=== PATIENT | female | born 1960 | race Caucasian/White ===

== ENCOUNTER 2020-11-04 09:21 | Outpatient (REF) | payer MEDICARE, MEDICAID, SELFPAY ==
[2020-11-04 13:35] LABS: MANUAL DIFF FLAG NO
[2020-11-04 13:39] LABS: Basophils Percent Auto 0.5 % (0-2); Eosinophils Absolute Auto 0.1 X10*3/uL (0.0-0.4); Eosinophils Percent Auto 1.8 % (0-4); Hematocrit 35.8 % (37-47); Hemoglobin 11.8 g/dl (12.0-16.0); Imm Gran Abs Auto 0.03 X10*3/uL (0.00-0.03); Imm Gran Pct Auto 0.5 % (0.0-0.4); Lymphocytes Absolute Auto 1.8 X10*3/uL (1.2-4.9); Lymphocytes Percent Auto 30.4 % (20-40); Mean Corpuscular Hemoglobin 29.2 pg (27.0-33.0); Mean Corpuscular Volume 88.6 fL (80-98); Monocytes Absolute Auto 0.5 X10*3/uL (0.1-1.2); Monocytes Percent Auto 8.5 % (2-11); Neutrophils Absolute Auto 3.5 X10*3/uL (2.0-8.3); Neutrophils Percent Auto 58.3 % (45-73); Platelet Count 173 X10*3/uL (160-400); Red Blood Count 4.04 X10*6/uL (4.20-5.50); Red Cell Distribution Width 13.9 % (11.0-16.0)
[2020-11-04 14:05] LABS: Alanine Aminotransferase 15 U/L (0-31); Albumin Level 4.2 g/dL (3.5-5.0); Alkaline Phosphatase 101 U/L (39-117); Anion Gap 18 (12-20); Aspartate Amino Transferase 27 U/L (5-31); Bilirubin Total 0.4 mg/dL (0.0-1.0); Blood Urea Nitrogen 16 mg/dL (9-16); Calcium 9.6 mg/dL (8.4-10.2); Carbon Dioxide 22 mmol/L (22-29); Chloride 105 mmol/L (96-108); Cholesterol 209 mg/dL; Estimated Glomerular Filt Rate 57; Glucose Fasting 88 mg/dL (60-99); HDL Cholesterol 48 mg/dL; LDL Cholesterol Calculated 140 mg/dl; Potassium 4.8 mmol/L (3.3-5.1); Sodium 140 mmol/L (135-145); Total Protein 7.7 g/dL (6.5-8.0); Triglycerides 109 mg/dL
== END 2020-11-04 09:22 | disposition home or self-care (01) ==
LOC: HO.LAB 09:21
PROVIDERS: Absent Provider Internal Medicine Medical Oncology; PCP Internal Medicine Medical Oncology; Visit Provider Internal Medicine Gastroenterology
DX: C18.9 Malignant neoplasm of colon, unspecified (principal); E78.5 Hyperlipidemia, unspecified; K59.04 Chronic idiopathic constipation; Z85.038 Personal history of other malignant neoplasm of large intestine
CPT/HCPCS: 36415; 80053; 80061; 85025; Q3014

== ENCOUNTER 2020-12-04 11:48 | Outpatient (REF) | payer MEDICARE, MEDICAID, SELFPAY ==
--- NOTE | ~2020-12-04 | XR_ITS ---
EXAMINATION: LUMBAR SPINE. SACRUM/COCCYX. CLINICAL INFORMATION: Low back pain. Radiculopathy. COMPARISON: None TECHNIQUE: Sacrum/coccyx 2 views. Lumbar spine 2-3 views. FINDINGS: SACRUM/COCCYX: There is no visible fracture or bony abnormality involving the sacrum. The presacral soft tissues are normal. The SI joints are normal and symmetrical. LUMBAR SPINE: There is maintained lumbar lordosis. There is loss of L5-S1 disc height. Rest the disc heights are normal. No visible acute fracture, dislocation or subluxation seen. The paravertebral soft tissues are normal. XR/XR lumbar spine 2-3V IMPRESSION: Degenerative disc changes L5-S1 disc level. No visible acute fracture or dislocation. Unremarkable sacrum and coccyx.
--- NOTE | ~2020-12-04 | XR_ITS ---
EXAMINATION: LUMBAR SPINE. SACRUM/COCCYX. CLINICAL INFORMATION: Low back pain. Radiculopathy. COMPARISON: None TECHNIQUE: Sacrum/coccyx 2 views. Lumbar spine 2-3 views. FINDINGS: SACRUM/COCCYX: There is no visible fracture or bony abnormality involving the sacrum. The presacral soft tissues are normal. The SI joints are normal and symmetrical. LUMBAR SPINE: There is maintained lumbar lordosis. There is loss of L5-S1 disc height. Rest the disc heights are normal. No visible acute fracture, dislocation or subluxation seen. The paravertebral soft tissues are normal. XR/XR sacrum coccyx min 2V IMPRESSION: Degenerative disc changes L5-S1 disc level. No visible acute fracture or dislocation. Unremarkable sacrum and coccyx.
== END 2020-12-04 11:49 | disposition home or self-care (01) ==
LOC: HO.HMGCX 11:48
PROVIDERS: PCP Internal Medicine Medical Oncology; Visit Provider Internal Medicine Medical Oncology
DX: M54.5 Low back pain (principal); M54.10 Radiculopathy, site unspecified
CPT/HCPCS: 72100; 72220

== ENCOUNTER 2021-03-23 07:29 | Day surgery (SDC) | payer MEDICARE, MEDICAID, SELFPAY ==
--- NOTE | 2021-03-19 10:07 | HO.ANESPROP2 ---
Documented by User: Sendy Chowdhury NP 03/19/21 10:08 HPI - Anesthesia Eval Consult details Narrative: 60yo F for Colonoscopy PMFSH Active Problems Active Problems: All Active Problems (Updated 11/04/20 @ 09:49 by Dora Albright MD) Hx of colon cancer, stage I (Acute) Chronic idiopathic constipation (Acute) Past Medical History Medical History Chronic idiopathic constipation Hx of colon cancer, stage I Hx of major depression Tobacco dependence Family History Family History Maternal Aunt Colon cancer Father FH: colon polyps Surgical History Surgical History H/O colonoscopy H/O right hemicolectomy Social History Social History Household Members: Significant Other Alcohol intake: current Alcohol intake frequency: does not drink Patient Tobacco Use Status: Current everyday Tobacco user Cigarettes Per Day: 10 Use of substances other than those prescribed or required for medical reasons: Yes Have you been hit, kicked, punched, or otherwise hurt by someone within the past year? If so, by whom?: No Are you DNR?: No Advance Directives: No Advance Directives Information Provided: Yes Meds Allergies Allergy/AdvReac Type Severity Reaction Status Date / Time magnesium sulfate Allergy Intermediate RASH Verified 11/04/20 09:22 [From SUPREP] potassium [From SUPREP] Allergy Intermediate RASH Verified 11/04/20 09:22 sodium sulfate [From SUPREP] Allergy Intermediate RASH Verified 11/04/20 09:22 nabumetone [NABUMETONE] Allergy Unknown STOMACH Verified 11/04/20 09:22 UPSET sumatriptan [From IMITREX] Allergy Unknown NAUSEA & Verified 11/04/20 09:22 VOMITING, nausea,vomiting SuPrep Bowel Prep Kit (Na Allergy Unknown --Sulfa Uncoded 03/11/19 00:00 Sulf Exam Exam Date and Time: March 19, 2021 1007 Pertinent Lab Results Pertinent Lab Results: Laboratory Tests 11/04/20 11/04/20 13:00 13:00 WBC 6.0 Hgb 11.8 L Hct 35.8 L Plt Count 173 Sodium 140 Potassium 4.8 Chloride 105 Carbon Dioxide 22 BUN 16 Creatinine 0.99 Assessment and Plan Assessment Anesthesia Assessment: Chart Reviewed Documented by User: Katelynn Gray MD 03/23/21 10:43 PMFSH Past Medical History Medical History Chronic idiopathic constipation Hx of colon cancer, stage I Hx of major depression Tobacco dependence Family History Family History Maternal Aunt Colon cancer Father FH: colon polyps Surgical History Surgical History H/O colonoscopy H/O right hemicolectomy History of Problems with Anesthesia: No Social History Social History Household Members: Significant Other Alcohol intake: current Alcohol intake frequency: does not drink Patient Tobacco Use Status: Current everyday Tobacco user Cigarettes Per Day: 10 Use of substances other than those prescribed or required for medical reasons: Yes Have you been hit, kicked, punched, or otherwise hurt by someone within the past year? If so, by whom?: No Are you DNR?: No Advance Directives: No Advance Directives Information Provided: Yes Meds Allergies Allergy/AdvReac Type Severity Reaction Status Date / Time magnesium sulfate Allergy Intermediate RASH Verified 11/04/20 09:22 [From SUPREP] potassium [From SUPREP] Allergy Intermediate RASH Verified 11/04/20 09:22 sodium sulfate [From SUPREP] Allergy Intermediate RASH Verified 11/04/20 09:22 nabumetone [NABUMETONE] Allergy Unknown STOMACH Verified 11/04/20 09:22 UPSET sumatriptan [From IMITREX] Allergy Unknown NAUSEA & Verified 11/04/20 09:22 VOMITING, nausea,vomiting SuPrep Bowel Prep Kit (Na Allergy Unknown --Sulfa Uncoded 03/11/19 00:00 Sulf Exam Airway Mallampati Class: II TM Dist: >3cm Neck ROM: Full Loose/Missing/Broken Teeth: Yes and Lower Heart: RRR Lungs: CTA Assessment and Plan Assessment Anesthesia Assessment: Anesthesia Plan Discussed Final Anesthetic Review History of Problems with Anesthesia: No NPO: Yes ASA Class: II Final Preanesthetic Review: Meds/Allgs Chart Reviewed, Consent Obtained/Reviewed and Anes Risks/Benef Reviewed Patient Risk: Low Procedure Risk: Low Anesthetic Plan Anesthetic Plan: MAC: Disposition: Standard PACU
[2021-03-23 10:18] VITALS: BP 153/90; PULSE 59; RESP 18; TEMP 36.1; O2SAT 100
--- NOTE | 2021-03-23 10:26 | MHC.SHP ---
Pre-Procedural Eval Section A Date of Service: 03/23/21 The patient is an INPATIENT: No The History & Physical has been completed within 30 days and I have reviewed it.: No Section B Chief Complaint: Hx of stage 1 colon cancer Details of Present Illness: Colon cancer screening, history of colon cancer Relevant Family History (Specify if Yes): Yes Relevant Social History: Tobacco Use Present Medications: see Short Stay Collaborative assessment Medical History: Significant History (Chronic idiopathic constipation Hx of colon cancer, stage I Hx of major depression Tobacco dependence) History of Previous Operations: Relevant previous surgery/procedure and date(s) (status post rt hemicolectomy for stage 1 colon cancer in 2014) Allergies: Allergies Allergy/AdvReac Type Severity Reaction Status Date / Time magnesium sulfate Allergy Intermediate RASH Verified 11/04/20 09:22 [From SUPREP] potassium [From SUPREP] Allergy Intermediate RASH Verified 11/04/20 09:22 sodium sulfate [From SUPREP] Allergy Intermediate RASH Verified 11/04/20 09:22 nabumetone [NABUMETONE] Allergy Unknown STOMACH Verified 11/04/20 09:22 UPSET sumatriptan [From IMITREX] Allergy Unknown NAUSEA & Verified 11/04/20 09:22 VOMITING, nausea,vomiting SuPrep Bowel Prep Kit (Na Allergy Unknown --Sulfa Uncoded 03/11/19 00:00 Sulf Review of Systems Sugical H&P ROS: Negative: Constitution, Cardiovascular, Respiratory and Gastrointestinal Exam Surgical H&P Exam: Normal: Heart, Normal: Lungs, Normal: Extremities and Normal: Abdomen Plan Diagnosis/Plan: Unchanged I have reviewed the history and physical and performed a pertinent physical examination on my patient. No changes have occurred unless specified.
[2021-03-23 10:27] VITALS: BMI 25.8
--- NOTE | 2021-03-23 10:28 | W.PM.OPN ---
Operative Note Operative Note Date of Service: 03/23/21 Narrative: Pre-op diagnosis:?Colon cancer screening, status post right hemicolectomy for stage I cecal cancer in 2014 Post-op diagnosis:?other (Colon polyps, diverticulosis, hemorrhoids) Procedure:? COLONOSCOPY TILL CECUM WITH SNARE POLYPECTOMY Consent: Indications for the procedure and potential complications of bleeding, perforation, reaction to medications and missed diagnosis were discussed with the patient and informed consent was obtained. Instrument: Olympus PCF H 190 L variable stiffness pediatric colonoscope Monitoring: Vital signs and clinical assessment, intermittent blood pressure monitoring, continuous EKG monitoring, Pulse oximetry and Carbon Dioxide monitoring were done throughout the procedure. Colon withdrawl time was 16 minutes. Procedure: The patient was placed in the left lateral decubitis position and pre-procedure medications were administered. After a digital rectal examination of the ano-rectum, the video colonoscope was inserted into the rectum and advanced through the colon to the end to side ileo-colic anastomosis. The colonoscope was slowly withdrawn in a retrograde panoramic fashion and the colon mucosa was carefully examined including a retroflexed view of the rectum. Findings and interventions are described below. Procedure Difficulty: Without difficulty Findings: Terminal Ileum: Distal 10 cms of charly-terminal ileum was examined and appeared normal Anastomosis:? Normal Transverse Colon:? Normal Descending Colon:? Normal Sigmoid Colon:? Moderate diverticulosis Rectum:? Multiple 8 mm to 2 cms hyperplastic appearing polyps in the rectum from 0-10 cms - three larger polyps were removed with a hot snare. Ano-rectum:? Small internal hemorrhoids Colon preparation:? Good? Impression and Post Procedure Diagnosis: Colonoscopy Findings: Three medium sized polyps removed Moderate diverticulosis seen in the sigmoid colon Small hemorrhoids on retroflexed exam. Plan: Await pathology results Patient has an appointment on 04/22/21 in the GI Clinic with Phoenix Niño M.D.. Repeat Colonoscopy interval based on path results - in 3-5 years if polyps are adenomatous and due to personal hx of colon cancer. Above findings were reviewed with the patient and colon polyps and diverticulosis handouts were given in the discharge area Surgeon:?Phoenix Niño MD Anesthesia:?MAC (Laurence Salinas, GEOMAGNETIST) Was an Vice President Fixed Income used for this Procedure?:?Yes Vice President Fixed Income:?Jesi Barrett Estimated blood loss (mL):?0 Pathology:?other (A. rectal polyps) Condition:?stable Disposition:?PACU
[2021-03-23] MEDS: Lactated Ringers 1,000 ML 100 ML IVCONT (10:39)
[2021-03-23 11:44] VITALS: BP 115/68; PULSE 61; RESP 16; TEMP 36.3; O2SAT 100
[2021-03-23 11:59] VITALS: BP 140/77; PULSE 50; RESP 16; O2SAT 100
== END 2021-03-23 12:20 | disposition home or self-care (01) ==
PROVIDERS: PCP Internal Medicine Medical Oncology; Visit Provider Internal Medicine Gastroenterology
PROC: 0DJD8ZZ Inspection of Lower Intestinal Tract, Via Natural or Artificial Opening Endoscopic (ICD-10-PCS; CPT 45378; principal; 2021-03-23 10:40)
DX: Z12.11 Encounter for screening for malignant neoplasm of colon (principal); K62.1 Rectal polyp; K57.30 Diverticulosis of large intestine without perforation or abscess without bleeding; K64.8 Other hemorrhoids; Z85.038 Personal history of other malignant neoplasm of large intestine; Z98.0 Intestinal bypass and anastomosis status
CPT/HCPCS: 45385; 88305

== ENCOUNTER → 2021-04-22 11:00 | Outpatient (BNVA) | payer MEDICARE, MEDICAID, SELFPAY | PROVIDERS: Visit Provider Internal Medicine Gastroenterology | DX: K59.04 Chronic idiopathic constipation (principal); D64.9 Anemia, unspecified; Z85.038 Personal history of other malignant neoplasm of large intestine | CPT/HCPCS: 99212 ==

== ENCOUNTER 2021-06-22 12:57 | Outpatient (REF) | payer MEDICARE, MEDICAID, SELFPAY ==
--- NOTE | ~2021-06-22 | XR_ITS ---
EXAMINATION: XR ABDOMEN KUB CLINICAL INDICATION: Chronic idiopathic constipation COMPARISON: 11/01/2017 TECHNIQUE: AP view of the abdomen. FINDINGS: Nonobstructive bowel gas pattern. Gas and stool throughout the colon with mild to moderate colonic stool burden. There is a right mid abdominal anastomosis noted. No suspicious calcifications. The lung bases are clear. XR/XR KUB IMPRESSION: Mild to moderate colonic stool burden.
[2021-06-22 13:33] LABS: MANUAL DIFF FLAG NO
[2021-06-22 13:54] LABS: Basophils Percent Auto 0.3 % (0-2); Eosinophils Absolute Auto 0.1 X10*3/uL (0.0-0.4); Eosinophils Percent Auto 1.7 % (0-4); Hematocrit 35.3 % (37.0-47.0); Hemoglobin 11.5 g/dl (12.0-16.0); Imm Gran Abs Auto 0.01 X10*3/uL (0.00-0.03); Imm Gran Pct Auto 0.2 % (0.0-0.4); Lymphocytes Absolute Auto 1.3 X10*3/uL (1.2-4.9); Lymphocytes Percent Auto 22.7 % (20-40); Mean Corpuscular HGB Conc 32.6 g/dl (31.0-35.0); Mean Corpuscular Volume 85.9 fL (80.0-98.0); Mean Platelet Volume 11.5 fL (9.4-12.3); Monocytes Absolute Auto 0.5 X10*3/uL (0.1-1.2); Monocytes Percent Auto 8.2 % (2-11); Neutrophils Absolute Auto 3.9 x10*3/uL (2.0-8.3); Neutrophils Percent Auto 66.9 % (45-73); Platelet Count 230 X10*3/uL (160-400); Red Blood Count 4.11 X10*6/uL (4.20-5.50); Red Cell Distribution Width 14.2 % (11.0-16.0); White Blood Count 5.8 X10*3/uL (4.8-10.8)
[2021-06-22 14:32] LABS: Iron 27 mcg/dL (30-160); Percent Iron Saturation 7 % (15-50); Total Iron Binding Capacity 415 mcg/dL (228-428); Unsaturated Iron Binding 388 ug/dL
[2021-06-22 14:54] LABS: Vitamin D 25-OH Total 30.2 ng/mL (>30)
[2021-06-22 15:02] LABS: Folate 6.5 ng/mL (> or = 4.0); Vitamin B12 460 pg/mL (200-900)
[2021-06-22 15:37] LABS: Ferritin 7 ng/mL (10-250)
[2021-06-24 13:26] LABS: Immunoglobulin A 48 mg/dL (70-320)
[2021-06-29 16:11] LABS: Transglutaminase Ab IgG <1.0 U/mL; Transglutaminase IgA <1.0 U/mL
== END 2021-06-22 12:58 | disposition home or self-care (01) ==
LOC: HO.LAB 12:57
PROVIDERS: PCP Internal Medicine Medical Oncology; Visit Provider Internal Medicine Gastroenterology
DX: D64.9 Anemia, unspecified (principal); K59.04 Chronic idiopathic constipation
CPT/HCPCS: 36415; 74018; 82306; 82607; 82728; 82746; 82784; 83516; 83540; 84443; 85025

== ENCOUNTER → 2021-07-01 10:26 | Outpatient (BNVA) | payer MEDICARE, MEDICAID, SELFPAY | PROVIDERS: PCP Internal Medicine Medical Oncology; Visit Provider Surgery Vascular Surgery | DX: I73.9 Peripheral vascular disease, unspecified (principal); I73.00 Raynaud's syndrome without gangrene | CPT/HCPCS: 99202 ==

== ENCOUNTER 2021-07-22 13:28 | Outpatient (REF) | payer MEDICARE, MEDICAID, SELFPAY ==
--- NOTE | ~2021-07-22 | US_ITS ---
EXAMINATION: ANKLE-BRACHIAL INDICES SINGLE LEVEL PULSE VOLUME RECORDING ARTERIAL DUPLEX BILATERAL LEGS CLINICAL INFORMATION: Peripheral vascular disease. History of smoking. COMPARISON: None TECHNIQUE: Ankle-brachial indices and PVR at the ankle were obtained. Duplex Doppler of the bilateral lower extremity arterial systems was performed. FINDINGS: RIGHT: Ankle-brachial index: 1.17 PVR: Normal Common femoral: PSV no 126 cm/s. Triphasic waveform. Deep femoral: PSV 89 cm/s. Triphasic waveform. Proximal superficial femoral: PSV 89 cm/s. Triphasic waveform. Mid superficial femoral: PSV 95 cm/s. Triphasic waveform. Distal superficial femoral: PSV 91 cm/s. Triphasic waveform. Popliteal: PSV 58 cm/s. Triphasic waveform. Posterior tibial: PSV 103 cm/s. Triphasic waveform. Peroneal: PSV 63 cm/s. Triphasic waveform. LEFT: Ankle-brachial index: 1.24 PVR: Normal Common femoral: PSV 155 cm/s. Triphasic waveform. Deep femoral: PSV 69 cm/s. Triphasic waveform. Proximal superficial femoral: PSV 89 cm/s. Triphasic waveform. Mid superficial femoral: PSV 99 cm/s. Triphasic waveform. Distal superficial femoral: PSV 100 cm/s. Triphasic waveform. Popliteal: PSV 62 cm/s. Triphasic waveform. Posterior tibial: PSV 80 cm/s. Triphasic waveform. Peroneal: PSV 41 cm/s. Triphasic waveform. US/US arterial duplex LE BI IMPRESSION: No evidence of hemodynamically significant peripheral arterial disease.
--- NOTE | ~2021-07-22 | US_ITS ---
EXAMINATION: ANKLE-BRACHIAL INDICES SINGLE LEVEL PULSE VOLUME RECORDING ARTERIAL DUPLEX BILATERAL LEGS CLINICAL INFORMATION: Peripheral vascular disease. History of smoking. COMPARISON: None TECHNIQUE: Ankle-brachial indices and PVR at the ankle were obtained. Duplex Doppler of the bilateral lower extremity arterial systems was performed. FINDINGS: RIGHT: Ankle-brachial index: 1.17 PVR: Normal Common femoral: PSV no 126 cm/s. Triphasic waveform. Deep femoral: PSV 89 cm/s. Triphasic waveform. Proximal superficial femoral: PSV 89 cm/s. Triphasic waveform. Mid superficial femoral: PSV 95 cm/s. Triphasic waveform. Distal superficial femoral: PSV 91 cm/s. Triphasic waveform. Popliteal: PSV 58 cm/s. Triphasic waveform. Posterior tibial: PSV 103 cm/s. Triphasic waveform. Peroneal: PSV 63 cm/s. Triphasic waveform. LEFT: Ankle-brachial index: 1.24 PVR: Normal Common femoral: PSV 155 cm/s. Triphasic waveform. Deep femoral: PSV 69 cm/s. Triphasic waveform. Proximal superficial femoral: PSV 89 cm/s. Triphasic waveform. Mid superficial femoral: PSV 99 cm/s. Triphasic waveform. Distal superficial femoral: PSV 100 cm/s. Triphasic waveform. Popliteal: PSV 62 cm/s. Triphasic waveform. Posterior tibial: PSV 80 cm/s. Triphasic waveform. Peroneal: PSV 41 cm/s. Triphasic waveform. US/US FREDDY complete IMPRESSION: No evidence of hemodynamically significant peripheral arterial disease.
== END 2021-07-22 13:29 | disposition home or self-care (01) ==
LOC: HO.US 13:28
PROVIDERS: Visit Provider Surgery Vascular Surgery
DX: I73.9 Peripheral vascular disease, unspecified (principal); Z87.891 Personal history of nicotine dependence
CPT/HCPCS: 93923; 93925

== ENCOUNTER → 2021-07-27 13:27 | Outpatient (BNVA) | payer MEDICARE, MEDICAID, SELFPAY | PROVIDERS: PCP Internal Medicine Medical Oncology; Visit Provider Surgery Vascular Surgery | DX: I73.00 Raynaud's syndrome without gangrene (principal) | CPT/HCPCS: 99212 ==

== ENCOUNTER → 2021-08-09 14:13 | Outpatient (BNVA) | payer MEDICARE, MEDICAID, SELFPAY | PROVIDERS: PCP Internal Medicine Medical Oncology; Visit Provider Internal Medicine Gastroenterology | DX: K59.04 Chronic idiopathic constipation (principal); Z85.038 Personal history of other malignant neoplasm of large intestine | CPT/HCPCS: 99212 ==

== ENCOUNTER 2021-09-13 08:55 | Day surgery (SDC) | payer MEDICARE, MEDICAID, SELFPAY ==
--- NOTE | 2021-09-10 09:10 | P.CONAN_ITS ---
Documented by User: Sendy Chowhdury NP 09/10/21 09:10 HPI - Anesthesia Eval Consult details Narrative: 61yo F for Upper Endoscopy s/p [facility] 03/2021 with [facility] PMFSH Active Problems Active Problems: All Active Problems (Updated 09/03/21 @ 14:42 by Evelyn Lowe, LISBETH) Anemia (Acute) PAD (peripheral artery disease) (Acute) Raynauds disease (Acute) Hx of colon cancer, stage I (Acute) Chronic idiopathic constipation (Acute) Past Medical History Medical History Chronic idiopathic constipation History of anemia Hx of colon cancer, stage I Hx of major depression Raynauds disease Tobacco dependence Family History Family History Maternal Aunt Colon cancer Father FH: colon polyps Surgical History Surgical History H/O colonoscopy H/O right hemicolectomy History of Problems with Anesthesia: No Social History Social History Household Members: Significant Other Alcohol intake: current Alcohol intake frequency: does not drink Patient Tobacco Use Status: Current everyday Tobacco user Tobacco use type: Cigarette Cigarettes Per Day: 10 Use of substances other than those prescribed or required for medical reasons: No Are you DNR?: No Advance Directives: No Advance Directives Information Provided: Yes Recently lost weight without trying: No Nutrition Risks: No Nutritional Risk Meds Allergies Allergy/AdvReac Type Severity Reaction Status Date / Time magnesium sulfate Allergy Intermediate RASH Verified 09/03/21 14:41 [From SUPREP] potassium [From SUPREP] Allergy Intermediate RASH Verified 09/03/21 14:41 sodium sulfate [From SUPREP] Allergy Intermediate RASH Verified 09/03/21 14:41 nabumetone [NABUMETONE] Allergy Unknown STOMACH Verified 09/03/21 14:41 UPSET sumatriptan [From IMITREX] Allergy Unknown NAUSEA & Verified 09/03/21 14:41 VOMITING, nausea,vomiting SuPrep Bowel Prep Kit (Na Allergy Unknown --Sulfa Uncoded 09/03/21 14:41 Sulf Home Medications Medication Instructions Recorded Confirmed Last Taken Type ferrous sulfate 325 mg (65 mg 325 mg PO DAILY 07/27/21 09/03/21 Unknown History iron) tablet (FeroSul) Exam Exam Date and Time: September 10, 2021 0910 Assessment and Plan Assessment Anesthesia Assessment: Chart Reviewed Final Anesthetic Review History of Problems with Anesthesia: No Documented by User: Katelynn Gray MD 09/13/21 10:23 PMFSH Past Medical History Medical History Chronic idiopathic constipation History of anemia Hx of colon cancer, stage I Hx of major depression Raynauds disease Tobacco dependence Family History Family History Maternal Aunt Colon cancer Father FH: colon polyps Surgical History Surgical History H/O colonoscopy H/O right hemicolectomy Social History Social History Household Members: Significant Other Alcohol intake: current Alcohol intake frequency: does not drink Patient Tobacco Use Status: Current everyday Tobacco user Tobacco use type: Cigarette Cigarettes Per Day: 10 Use of substances other than those prescribed or required for medical reasons: No Are you DNR?: No Advance Directives: No Advance Directives Information Provided: Yes Recently lost weight without trying: No Nutrition Risks: No Nutritional Risk Meds Allergies Allergy/AdvReac Type Severity Reaction Status Date / Time magnesium sulfate Allergy Intermediate RASH Verified 09/03/21 14:41 [From SUPREP] potassium [From SUPREP] Allergy Intermediate RASH Verified 09/03/21 14:41 sodium sulfate [From SUPREP] Allergy Intermediate RASH Verified 09/03/21 14:41 nabumetone [NABUMETONE] Allergy Unknown STOMACH Verified 09/03/21 14:41 UPSET sumatriptan [From IMITREX] Allergy Unknown NAUSEA & Verified 09/03/21 14:41 VOMITING, nausea,vomiting SuPrep Bowel Prep Kit (Na Allergy Unknown --Sulfa Uncoded 09/03/21 14:41 Sulf Home Medications Medication Instructions Recorded Confirmed Last Taken Type ferrous sulfate 325 mg (65 mg 325 mg PO DAILY 07/27/21 09/03/21 Unknown History iron) tablet (FeroSul) Exam Pertinent Lab Results Pertinent Lab Results: e Airway Mallampati Class: II TM Dist: >3cm Neck ROM: Full Loose/Missing/Broken Teeth: Yes, Upper and Lower Heart: RRR Lungs: CTA Assessment and Plan Assessment Anesthesia Assessment: Anesthesia Plan Discussed Final Anesthetic Review NPO: Yes ASA Class: II Final Preanesthetic Review: Meds/Allgs Chart Reviewed, Consent Obtained/Reviewed and Anes Risks/Benef Reviewed Patient Risk: Low Procedure Risk: Intermediate Anesthetic Plan Anesthetic Plan: MAC: Disposition: Standard PACU
[2021-09-13 09:11] VITALS: BMI 27.4
[2021-09-13 09:22] VITALS: BP 125/69; PULSE 70; RESP 16; TEMP 36.6; O2SAT 95
[2021-09-13] MEDS: Lactated Ringers 1,000 ML 100 ML IVCONT (09:29)
--- NOTE | 2021-09-13 10:03 | MHC.SHP ---
Pre-Procedural Eval Section A Date of Service: 09/13/21 The patient is an INPATIENT: No The History & Physical has been completed within 30 days and I have reviewed it.: No Section B Chief Complaint: anemia Details of Present Illness: Iron deficiency anemia, heme-positive stool (1/3) Relevant Family History (Specify if Yes): Yes Relevant Social History: Tobacco Use Present Medications: see Short Stay Collaborative assessment Medical History: Significant History (Chronic idiopathic constipation Hx of colon cancer, stage I Hx of major depression Tobacco dependence) History of Previous Operations: Relevant previous surgery/procedure and date(s) (H/O colonoscopy H/O right hemicolectomy) Allergies: Allergies Allergy/AdvReac Type Severity Reaction Status Date / Time magnesium sulfate Allergy Intermediate RASH Verified 09/03/21 14:41 [From SUPREP] potassium [From SUPREP] Allergy Intermediate RASH Verified 09/03/21 14:41 sodium sulfate [From SUPREP] Allergy Intermediate RASH Verified 09/03/21 14:41 nabumetone [NABUMETONE] Allergy Unknown STOMACH Verified 09/03/21 14:41 UPSET sumatriptan [From IMITREX] Allergy Unknown NAUSEA & Verified 09/03/21 14:41 VOMITING, nausea,vomiting SuPrep Bowel Prep Kit (Na Allergy Unknown --Sulfa Uncoded 09/03/21 14:41 Sulf Review of Systems Sugical H&P ROS: Negative: Constitution, Cardiovascular, Respiratory and Gastrointestinal Exam Surgical H&P Exam: Normal: Heart, Normal: Lungs, Normal: Extremities and Normal: Abdomen Plan Diagnosis/Plan: Unchanged I have reviewed the history and physical and performed a pertinent physical examination on my patient. No changes have occurred unless specified.
--- NOTE | 2021-09-13 10:05 | W.PM.OPN ---
Operative Note Operative Note Date of Service: 09/13/21 Narrative: Pre-op diagnosis: Iron def anemia, 1/3 heme positive stools Post-op diagnosis:?other (Hiatal hernia, gastritis) Procedure: FLEXIBLE TRANSORAL UPPER GASTROINTESTINAL ENDOSCOPY WITH BIOPSIES Consent:?Indications for the procedure and potential complications of bleeding, perforation, reaction to medications and missed diagnosis were discussed with the patient and informed consent was obtained. Instrument:?Olympus GIF H 190 mid size upper endoscope Monitoring: Vital signs and clinical assessment, continuous EKG monitoring, Pulse oximetry, Carbon Dioxide monitoring and blood pressure monitoring were done throughout the procedure. Procedure:?The patient was placed in the left lateral decubitis position and pre-procedure medications were administered and a bite block was placed. The endoscope was inserted into the mouth and advanced under direct vision to the third part of duodenum. A careful inspection was made as the upper endoscope was withdrawn including a retroflexed examination of the proximal stomach; Findings and interventions are described below. Findings: Esophagus: GE junction at 40 cms, small hiatal hernia 38 to 40 cms. No esophagitis or James's. Stomach: Mild gastric erythema. Biopsies were obtained. Grade 2 flap valve on retroflexed examination of the cardia. Duodenum: Normal bulb and descending duodenum - biopsies were obtained from 3rd part of the duodenum to check for celiac sprue. Intervention: Biopsies as noted above Impression and Post Procedure Diagnosis: Endoscopy Findings: ESOPHAGUS: small hiatal hernia STOMACH: Mild gastritis DUODENUM: Normal - biopsied to check for celiac sprue Plan: Await pathology results Patient has an appointment on 12/09/21 in the GI Clinic with Phoenix Niño M.D.. Above findings were reviewed with the patient and Hiatal Hernia handout was given in the discharge area Surgeon: Phoenix Niño MD Anesthesia:?MAC (Dr Gray) Was an Emissions Testing Technician used for this Procedure?:?No Emissions Testing Technician:?Jesi Barrett Estimated blood loss (mL):?0 Pathology:?other (A. small bowel bxs, R/O celiac? B. gastric antrum bxs, R/O H. pylori) Condition:?stable Disposition:?PACU
[2021-09-13 10:30] VITALS: BP 91/55; PULSE 76; RESP 20; TEMP 36.1; O2SAT 98
[2021-09-13 10:45] VITALS: BP 111/60; PULSE 63; RESP 18; TEMP 36.1; O2SAT 97
== END 2021-09-13 11:36 | disposition home or self-care (01) ==
PROVIDERS: PCP Internal Medicine Medical Oncology; Visit Provider Internal Medicine Gastroenterology
PROC: 0DJ08ZZ Inspection of Upper Intestinal Tract, Via Natural or Artificial Opening Endoscopic (ICD-10-PCS; CPT 43235; principal; 2021-09-13 10:10)
DX: D50.9 Iron deficiency anemia, unspecified (principal); R19.5 Other fecal abnormalities; K59.04 Chronic idiopathic constipation; K29.50 Unspecified chronic gastritis without bleeding; K44.9 Diaphragmatic hernia without obstruction or gangrene; R53.83 Other fatigue; R63.5 Abnormal weight gain; Z68.27 Body mass index [BMI] 27.0-27.9, adult; Z85.038 Personal history of other malignant neoplasm of large intestine; Z86.010 Personal history of colon polyps; Z79.899 Other long term (current) drug therapy; Z88.8 Allergy status to other drugs, medicaments and biological substances; F17.210 Nicotine dependence, cigarettes, uncomplicated; Z90.49 Acquired absence of other specified parts of digestive tract
CPT/HCPCS: 43239; 88305; 88342

== ENCOUNTER 2021-10-11 15:05 | Outpatient (REF) | payer MEDICARE, MEDICAID, SELFPAY ==
[2021-10-11 15:17] LABS: MANUAL DIFF FLAG NO
[2021-10-11 15:22] LABS: Basophils Percent Auto 0.3 % (0-2); Eosinophils Absolute Auto 0.1 X10*3/uL (0.0-0.4); Eosinophils Percent Auto 1.3 % (0-4); Hematocrit 43.3 % (37.0-47.0); Hemoglobin 14.7 g/dl (12.0-16.0); Imm Gran Abs Auto 0.03 X10*3/uL (0.00-0.03); Imm Gran Pct Auto 0.3 % (0.0-0.4); Lymphocytes Absolute Auto 2.2 X10*3/uL (1.2-4.9); Lymphocytes Percent Auto 24.2 % (20-40); Mean Corpuscular HGB Conc 33.9 g/dl (31.0-35.0); Mean Corpuscular Hemoglobin 30.9 pg (27.0-33.0); Mean Platelet Volume 10.7 fL (9.4-12.3); Monocytes Absolute Auto 0.7 X10*3/uL (0.1-1.2); Neutrophils Absolute Auto 6.2 x10*3/uL (2.0-8.3); Neutrophils Percent Auto 66.9 % (45-73); Platelet Count 212 X10*3/uL (160-400); Red Blood Count 4.76 X10*6/uL (4.20-5.50); Red Cell Distribution Width 14.3 % (11.0-16.0); White Blood Count 9.2 X10*3/uL (4.8-10.8)
[2021-10-11 16:23] LABS: Erythrocyte Sedimentation Rate 27 MM/HR (0-20)
[2021-10-11 16:46] LABS: Alanine Aminotransferase 19 U/L (0-31); Albumin Level 4.3 g/dL (3.5-5.0); Alkaline Phosphatase 124 U/L (39-117); Anion Gap 15 (12-20); Aspartate Amino Transferase 17 U/L (5-31); Bilirubin Total 0.3 mg/dL (0.0-1.0); Blood Urea Nitrogen 11 mg/dL (9-16); Calcium 9.8 mg/dL (8.4-10.2); Carbon Dioxide 25 mmol/L (22-29); Chloride 106 mmol/L (96-108); Estimated Glomerular Filt Rate > 60; Glucose Random 82 mg/dL (60-115); Potassium 4.6 mmol/L (3.3-5.1); Rheumatoid Factor < 15.0 IU/mL (<15.0); Sodium 141 mmol/L (135-145); Total Protein 7.5 g/dL (6.5-8.0)
[2021-10-11 16:59] LABS: Ferritin 35 ng/mL (10-250); Free T4 (Free Thyroxine) 0.96 ng/dL (0.71-1.85); Thyroid Stimulating Hormone 2.27 uIU/mL (0.32-4.0)
[2021-10-13 23:02] LABS: Anti Nuclear Antibody Pattern Nuclear, Nucleolar; Anti Nuclear Antibody Screen POSITIVE (NEGATIVE); Anti Nuclear Antibody Titer 1:40 titer
== END 2021-10-11 15:06 | disposition home or self-care (01) ==
LOC: HO.LAB 15:05
PROVIDERS: Visit Provider Internal Medicine Medical Oncology
DX: C18.9 Malignant neoplasm of colon, unspecified (principal); E78.5 Hyperlipidemia, unspecified
CPT/HCPCS: 36415; 80053; 82728; 84439; 84443; 85025; 85652; 86038; 86039; 86431

== ENCOUNTER 2022-07-20 10:24 | Outpatient (REF) | payer MEDICARE, MEDICAID, SELFPAY ==
[2022-07-20 10:39] LABS: MANUAL DIFF FLAG NO
[2022-07-20 10:45] LABS: Basophils Percent Auto 0.5 % (0-2); Eosinophils Absolute Auto 0.2 X10*3/uL (0.0-0.4); Eosinophils Percent Auto 2.2 % (0-4); Hematocrit 41.2 % (37.0-47.0); Hemoglobin 14.2 g/dl (12.0-16.0); Imm Gran Abs Auto 0.03 X10*3/uL (0.00-0.03); Imm Gran Pct Auto 0.4 % (0.0-0.4); Lymphocytes Absolute Auto 2.1 X10*3/uL (1.2-4.9); Lymphocytes Percent Auto 25.8 % (20-40); Mean Corpuscular HGB Conc 34.5 g/dl (31.0-35.0); Mean Corpuscular Hemoglobin 32.1 pg (27.0-33.0); Mean Platelet Volume 10.5 fL (9.4-12.3); Monocytes Absolute Auto 0.7 X10*3/uL (0.1-1.2); Monocytes Percent Auto 8.1 % (2-11); Neutrophils Absolute Auto 5.2 x10*3/uL (2.0-8.3); Platelet Count 222 X10*3/uL (160-400); Red Blood Count 4.43 X10*6/uL (4.20-5.50); Red Cell Distribution Width 12.5 % (11.0-16.0); White Blood Count 8.3 X10*3/uL (4.8-10.8)
[2022-07-20 11:42] LABS: Alanine Aminotransferase 30 U/L (0-31); Albumin Level 4.1 g/dL (3.5-5.0); Alkaline Phosphatase 129 U/L (39-117); Anion Gap 8 (12-20); Aspartate Amino Transferase 25 U/L (5-31); Bilirubin Total 0.5 mg/dL (0.0-1.0); Blood Urea Nitrogen 14 mg/dL (9-16); Calcium 9.7 mg/dL (8.4-10.2); Carbon Dioxide 26 mmol/L (22-29); Chloride 109 mmol/L (96-108); Cholesterol 258 mg/dL; Estimated Glomerular Filt Rate 48; Glucose Fasting 98 mg/dL (60-99); HDL Cholesterol 47 mg/dL; LDL Cholesterol Calculated 180 mg/dl; Potassium 5.4 mmol/L (3.3-5.1); Sodium 138 mmol/L (135-145); Total Protein 7.2 g/dL (6.5-8.0); Triglycerides 158 mg/dL
[2022-07-20 12:02] LABS: Ferritin 19 ng/mL (10-250)
== END 2022-07-20 10:25 | disposition home or self-care (01) ==
LOC: HO.LAB 10:24
PROVIDERS: PCP Internal Medicine Medical Oncology; Visit Provider Internal Medicine Medical Oncology
DX: C18.9 Malignant neoplasm of colon, unspecified (principal); E78.5 Hyperlipidemia, unspecified
CPT/HCPCS: 36415; 80053; 80061; 82728; 85025

== ENCOUNTER 2022-08-15 14:59 | Outpatient (REF) | payer MEDICARE, MEDICAID, SELFPAY ==
[2022-08-18 00:39] LABS: HPV mRNA E6/E7 rflx Not Detected (Not Detected)
== END 2022-08-15 15:00 | disposition home or self-care (01) ==
LOC: HO.LNP 14:59
PROVIDERS: Visit Provider Internal Medicine Medical Oncology
DX: Z12.4 Encounter for screening for malignant neoplasm of cervix (principal); Z11.51 Encounter for screening for human papillomavirus (HPV)
CPT/HCPCS: 87624; 88142

== ENCOUNTER 2022-09-20 13:42 | Outpatient (REF) | payer MEDICARE, MEDICAID, SELFPAY ==
[2022-09-20 15:31] LABS: Erythrocyte Sedimentation Rate 57 MM/HR (0-20)
[2022-09-22 13:28] LABS: Lyme Abs Screen <0.90 index
[2022-09-22 15:58] LABS: Anti Nuclear Antibody Screen NEGATIVE (NEGATIVE)
[2022-09-23 20:44] LABS: IgA 48 mg/dL (70-320); IgG 791 mg/dL (600-1540); IgM 1414 mg/dL (50-300)
== END 2022-09-20 13:43 | disposition home or self-care (01) ==
LOC: HO.LAB 13:42
PROVIDERS: PCP Internal Medicine Medical Oncology; Visit Provider Psychiatry & Neurology Neurology
DX: G62.9 Polyneuropathy, unspecified (principal)
CPT/HCPCS: 36415; 82784; 85652; 86038; 86039; 86334; 86617; 86618

== ENCOUNTER 2022-11-24 12:53 | Emergency (ER) | payer MEDICARE, MEDICAID, SELFPAY ==
--- NOTE | ~2022-11-24 | XR_ITS ---
EXAMINATION: RIGHT FOOT AND ANKLE CLINICAL INFORMATION: Fall with pain COMPARISON: None. TECHNIQUE: 3 views of the right foot and 2 views of the right ankle FINDINGS: Views of the right ankle demonstrate a nondisplaced fracture involving the distal fibula with large amount of associated soft tissue swelling. No ankle mortise disruption is appreciated. There is slight irregularity about the tip of the medial malleolus which could possibly represent a nondisplaced avulsion injury. I do not see significant soft tissue swelling without dislocation and this may either be related to artifact or previous injury. Views of the right foot do not demonstrate any evidence of acute fracture or dislocation. Joint spaces are maintained. There is some spurring seen along the medial aspect base of the fourth proximal phalanx which may be secondary to previous volar plate fracture. XR/XR ankle RT 2V IMPRESSION: Nondisplaced distal fibular fracture. Question new or chronic nondisplaced avulsion injury of the tip of the medial malleolus.
--- NOTE | ~2022-11-24 | XR_ITS ---
EXAMINATION: RIGHT FOOT AND ANKLE CLINICAL INFORMATION: Fall with pain COMPARISON: None. TECHNIQUE: 3 views of the right foot and 2 views of the right ankle FINDINGS: Views of the right ankle demonstrate a nondisplaced fracture involving the distal fibula with large amount of associated soft tissue swelling. No ankle mortise disruption is appreciated. There is slight irregularity about the tip of the medial malleolus which could possibly represent a nondisplaced avulsion injury. I do not see significant soft tissue swelling without dislocation and this may either be related to artifact or previous injury. Views of the right foot do not demonstrate any evidence of acute fracture or dislocation. Joint spaces are maintained. There is some spurring seen along the medial aspect base of the fourth proximal phalanx which may be secondary to previous volar plate fracture. XR/XR foot RT 2V IMPRESSION: Nondisplaced distal fibular fracture. Question new or chronic nondisplaced avulsion injury of the tip of the medial malleolus.
[2022-11-24 12:59] VITALS: BP 130/82; PULSE 79; RESP 18; TEMP 36.6; O2SAT 98; BMI 26.8
[2022-11-24 13:05] VITALS: BP 130/74; PULSE 70; O2SAT 98
--- NOTE | 2022-11-24 13:15 | ED_ITS ---
HPI - Extremity Injury (Lower) General Chief Complaint: Extremity Injury, Lower Stated Complaint: trip and fall, ankle pain Time Seen by Provider: 11/24/22 13:07 Source: patient and EMS Mode of arrival: EMS Limitations: no limitations History of Present Illness HPI Narrative: 62 yo female here with right ankle pain/foot pain after missing a step with inversion injury of right ankle. Has neuropathy at baseline. Related Data Home Medications Medication Instructions Recorded Confirmed ferrous sulfate 325 mg (65 mg 325 mg PO DAILY 07/27/21 09/03/21 iron) tablet (FeroSul) Previous Rx's Medication Instructions Recorded sennosides 8.6 mg capsule (senna) 8.6 mg PO DAILY PRN constipation 04/22/21 30 days #30 caps linaclotide 145 mcg capsule 145 mcg PO QAM 30 days #30 caps 11/11/21 (Linzess) Allergies Allergy/AdvReac Type Severity Reaction Status Date / Time magnesium sulfate Allergy Intermediate RASH Verified 09/03/21 14:41 [From SUPREP] potassium [From SUPREP] Allergy Intermediate RASH Verified 09/03/21 14:41 sodium sulfate [From SUPREP] Allergy Intermediate RASH Verified 09/03/21 14:41 nabumetone [NABUMETONE] Allergy Unknown STOMACH Verified 09/03/21 14:41 UPSET sumatriptan [From IMITREX] Allergy Unknown NAUSEA & Verified 09/03/21 14:41 VOMITING, nausea,vomiting SuPrep Bowel Prep Kit (Na Allergy Unknown --Sulfa Uncoded 09/03/21 14:41 Sulf Review of Systems Review of Systems: Yes all other systems are reviewed and are negative Constitutional: Constitutional: Reports no additional constitutional complaints, Denies body ache(s), Denies chills, Denies fever(s), Denies headache(s) and Denies weakness Eyes: Eyes: Reports no additional eye complaints and Denies change in vision ENT: Reports system reviewed and no additional complaints, except as documented, Denies dizziness, Denies headache(s), Denies nasal congestion, Denies nasal discharge and Denies neck pain Cardiovascular: Cardiovascular: Reports no additional cardiovascular complain ts, Denies chest pain, Denies leg edema and Denies dyspnea Respiratory: Respiratory: Reports no additional respiratory complaints, Denies cough and Denies dyspnea Gastrointestinal: Gastrointestinal: Reports no additional gastrointestinal complaints, Denies abdominal pain, Denies diarrhea, Denies nausea and Denies vomiting Genitourinary: Genitourinary: Reports no additional female genitourinary complaints and Denies urinary incontinence Musculoskeletal: Musculoskeletal: Reports no additional musculoskeletal complaints, Denies back pain, Reports arthralgias, Reports joint swelling, Denies neck pain, Denies numbness and Denies tingling Integumentary/Breasts: Skin/Breast: Reports system reviewed and no additional complaints, except as docu and Denies rash Neurologic: Reports system reviewed and no additional complaints, except as documented, Denies Abnormal speech present, Denies dizziness, Denies headache(s), Denies numbness, Denies tingling and Denies weakness PMFSH Past Medical History Attestation statement: The following information was validated with the patient. Source: old records reviewed and nursing notes reviewed Medical History Chronic idiopathic constipation History of anemia Hx of colon cancer, stage I Hx of major depression Raynauds disease Tobacco dependence Surgical History H/O colonoscopy H/O right hemicolectomy History of esophagogastroduodenoscopy (EGD) Family History Family History Maternal Aunt Colon cancer Father FH: colon polyps Social History Social History Household Members: Significant Other Alcohol intake: current Alcohol intake frequency: does not drink Patient Tobacco Use Status: Current everyday Tobacco user Tobacco use type: Cigarette Cigarettes Per Day: 10 Advance Directives: No Physical Exam Vital Signs: Vital Signs: Last Vital Signs Temp 97.8 F 11/24/22 12:59 Pulse 79 11/24/22 12:59 Resp 18 11/24/22 12:59 BP 130/82 11/24/22 12:59 Pulse Ox 98 11/24/22 12:59 O2 Del Method Room Air 11/24/22 12:59 BMI result Body Mass Index 26.8 Const: General: cooperative, healthy appearing, comfortable and no acute distress Orientation/consciousness: patient oriented x3 Limitations: no limitations HEENT: Head: Yes normal to inspection Ears: hearing grossly normal bilaterally General nose exam: Normal external nose present Face and sinus: Yes normal facial exam Mouth: Normal oral and palatal mucosa present Throat: Yes posterior oropharynx normal Eyes: General: appearance normal, both eyes and all related structures Pupils: Equal, round and reactive pupils present Neck: Neck: Yes normal visual inspection Chest: Chest palpation & inspection: normal inspection of the chest Resp: Effort & Inspection: normal respiratory effort Auscultation: clear to auscultation bilaterally Cardio: Rate: regular rate Rhythm: regular rhythm Peripheral pulses: Peripheral pulses 2+ throughout GI: Inspection: Yes normal to inspection Palpation (GI): Soft to palpation and nontender Auscultation: normal bowel sounds Back/Spine/Pelvis: Thoracic/Lumbar Spine: thoracic and lumbar spine normal to inspection Skin: General skin exam: no rashes or lesions noted Neuro: General: patient oriented x3, no focal motor deficits and normal sensation to monofilament Cranial nerves: Yes Equal, round and reactive pupils present Cognition (Neuro): normal cognition Speech: No Abnormal speech present Gait exam (Neuro): Normal gait present Motor exam (neuro): 5/5 motor strength present throughout Extrem: Other: Swelling, ecchymosis and tenderness to the right lateral ankle. No tenderness over the medial aspect. No tenderness over the foot. Full range of motion. No ligamental laxity. Normal DP and PT pulses. Sensation loss at baseline. General: Yes normal to inspection Course Course Course Narrative: X-rays of the right ankle show nondisplaced distal fibular fracture and a possible avulsion fracture of the medial malleolus. Patient was placed in a posterior splint and given crutches for ambulation. We reviewed rice. Recommend orthopedic follow-up. Reviewed worrisome signs and symptoms of when to return to the emergency room. Comfortable plan for discharge home. Medications Administered Discontinued Medications Generic Name Dose Route Start Last Admin Trade Name Freq PRN Reason Stop Dose Admin Acetaminophen 975 mg 11/24/22 14:51 11/24/22 15:01 Acetaminophen 325 Mg Tablet PO 11/24/22 14:52 975 mg ONCE ONE Administration Medical Decision Making Medical Decision Making [facility] Narrative: 62-year-old female here with right ankle pain after an injury which occurred just prior to arrival from a mechanical fall. Will check x-rays Differential Diagnosis Differential Diagnoses: The differential diagnosis associated with the presentation includes Fracture, sprain, dislocation less likely vascular injury Independent Interpretation I performed an independent interpretation of an: Plain X-Ray Interpretation: I independently reviewed the x-rays and agree with radiologist's report Radiology Impression Discussion of test interpretation with radiology: I have reviewed the radiologist's reading. Radiologist Impression: [address] [id number] XRay Report Signed Patient: Sidra Quintanilla MR#: [id number] : 1960 Acct:[id number] Age/Sex: 62 / F ADM Date: 11/24/22 Loc: HO.ED Attending Dr: Ordering Physician: Antonia Salazar NP Date of Service: 11/24/22 Procedure(s): XR foot RT 2V Accession Number(s): [id number] cc: Antonia Salazar NP~ EXAMINATION: RIGHT FOOT AND ANKLE CLINICAL INFORMATION: Fall with pain COMPARISON: None. TECHNIQUE: 3 views of the right foot and 2 views of the right ankle FINDINGS: Views of the right ankle demonstrate a nondisplaced fracture involving the distal fibula with large amount of associated soft tissue swelling. No ankle mortise disruption is appreciated. There is slight irregularity about the tip of the medial malleolus which could possibly represent a nondisplaced avulsion injury. I do not see significant soft tissue swelling without dislocation and this may either be related to artifact or previous injury. Views of the right foot do not demonstrate any evidence of acute fracture or dislocation. Joint spaces are maintained. There is some spurring seen along the medial aspect base of the fourth proximal phalanx which may be secondary to previous volar plate fracture. XR/XR foot RT 2V IMPRESSION: Nondisplaced distal fibular fracture. ? Question new or chronic nondisplaced avulsion injury of the tip of the medial malleolus. Procedures Orthopedic Splinting/Casting Injury #1: Side: right Lower Extremity Injury Location: lower leg Lower Extremity Immobilizer: posterior splint Other Orthopedic Equipment: crutches Discharge Plan Discharge Clinical Impression: Ankle fracture Patient Disposition: Home, Self-Care Instructions: Ankle Fracture (DC), Splint Care (ED) Additional Instructions: Elevate, keep the splint on all times do not get it wet Use the crutches for the next few days Follow-up with Orthopedics to make sure healing okay Take Tylenol for pain Prescriptions: No Action Linzess 145 mcg capsule 145 mcg PO QAM 30 Days Qty: 30 3RF senna 8.6 mg capsule 8.6 mg PO DAILY PRN (Reason: constipation) 30 Days Qty: 30 3RF ferrous sulfate [FeroSul] 325 mg (65 mg iron) tablet 325 mg PO DAILY Referrals: [facility] [place] Orthopedic Surgeons [Provider Group] - 10 days
[2022-11-24] MEDS: Acetaminophen 325 MG TABLET 975 MG PO (15:01)
--- NOTE | 2022-11-24 16:10 | MHC.EDTECH ---
Posterior short leg splint applied to right foot per provider. CSM intact with good capillary refill. RN and Provider aware.
== END 2022-11-24 16:17 | disposition home or self-care (01) ==
PROVIDERS: Emergency Provider Student in an Organized Health Care Education/Training Program; PCP Internal Medicine Medical Oncology
DX: S82.891A Other fracture of right lower leg, initial encounter for closed fracture (principal); M25.571 Pain in right ankle and joints of right foot; X50.1XXA Overexertion from prolonged static or awkward postures, initial encounter; Y93.9 Activity, unspecified; Y92.9 Unspecified place or not applicable; Y99.9 Unspecified external cause status; Z79.899 Other long term (current) drug therapy
CPT/HCPCS: 29515; 73600; 73620; 99284

== ENCOUNTER → 2022-12-01 11:27 | Outpatient (BNVA) | payer MEDICARE, MEDICAID, SELFPAY | PROVIDERS: PCP Internal Medicine Medical Oncology; Visit Provider Physician Assistant | DX: S82.831A Other fracture of upper and lower end of right fibula, initial encounter for closed fracture (principal); S82.891A Other fracture of right lower leg, initial encounter for closed fracture | CPT/HCPCS: 27786; 29405; 99202 ==

== ENCOUNTER 2022-12-29 07:21 | Outpatient (REF) | payer MEDICARE, MEDICAID, SELFPAY ==
--- NOTE | ~2022-12-29 | XR_ITS ---
EXAMINATION: XR ANKLE, RIGHT CLINICAL INFORMATION: Ankle pain. COMPARISON: November 24, 2022. TECHNIQUE: AP, lateral, and mortise views of the right ankle. XR/XR ankle RT min 3V FINDINGS/IMPRESSION: Decreased bone mineral density limits evaluation for subtle fracture. Examination again demonstrates a minimally displaced fractures of the lateral malleolus and possibly the tip of the medial malleolus, although the latter is equivocal. No definite callus formation is appreciated. Associated soft tissue swelling appears present. No other fracture or dislocation is appreciated. No lytic or sclerotic bony lesion is seen.
== END 2022-12-29 07:22 | disposition home or self-care (01) ==
LOC: HO.HOSX 07:21
PROVIDERS: Visit Provider Physician Assistant
DX: S82.831D Other fracture of upper and lower end of right fibula, subsequent encounter for closed fracture with routine healing (principal); S82.891D Other fracture of right lower leg, subsequent encounter for closed fracture with routine healing; M25.571 Pain in right ankle and joints of right foot; X58.XXXD Exposure to other specified factors, subsequent encounter
CPT/HCPCS: 73610; 99212

== ENCOUNTER 2023-01-09 14:14 | Outpatient (REF) | payer MEDICARE, MEDICAID, SELFPAY ==
[2023-01-09 14:53] LABS: MANUAL DIFF FLAG NO
[2023-01-09 15:38] LABS: Basophils Absolute Auto 0.1 X10*3/uL (0.0-0.2); Basophils Percent Auto 0.7 % (0-2); Eosinophils Absolute Auto 0.1 X10*3/uL (0.0-0.4); Eosinophils Percent Auto 1.1 % (0-4); Hematocrit 40.1 % (37.0-47.0); Hemoglobin 14.3 g/dl (12.0-16.0); Imm Gran Abs Auto 0.02 X10*3/uL (0.00-0.03); Imm Gran Pct Auto 0.3 % (0.0-0.4); Lymphocytes Absolute Auto 1.7 X10*3/uL (1.2-4.9); Lymphocytes Percent Auto 23.6 % (20-40); Mean Corpuscular HGB Conc 35.7 g/dl (31.0-35.0); Mean Corpuscular Hemoglobin 32.5 pg (27.0-33.0); Mean Corpuscular Volume 91.1 fL (80.0-98.0); Mean Platelet Volume 11.9 fL (9.4-12.3); Monocytes Absolute Auto 0.5 X10*3/uL (0.1-1.2); Monocytes Percent Auto 6.7 % (2-11); Neutrophils Absolute Auto 4.9 x10*3/uL (2.0-8.3); Neutrophils Percent Auto 67.6 % (45-73); Platelet Count 196 X10*3/uL (160-400); Red Cell Distribution Width 12.1 % (11.0-16.0); White Blood Count 7.3 X10*3/uL (4.8-10.8)
[2023-01-09 15:47] LABS: Estimated Average Glucose 82 mg/dL; Hemoglobin A1c % 4.5 %
[2023-01-09 16:12] LABS: Anion Gap 14 (12-20); Blood Urea Nitrogen 14 mg/dL (9-16); C Reactive Protein 0.12 mg/dL (< or = 0.50); Calcium 10.1 mg/dL (8.4-10.2); Carbon Dioxide 21 mmol/L (22-29); Chloride 109 mmol/L (96-108); Estimated Glomerular Filt Rate > 60; Glucose Random 90 mg/dL (60-115); Sodium 140 mmol/L (135-145)
[2023-01-09 16:28] LABS: Erythrocyte Sedimentation Rate 49 MM/HR (0-20)
== END 2023-01-09 14:15 | disposition home or self-care (01) ==
LOC: HO.LAB 14:14
PROVIDERS: Visit Provider Psychiatry & Neurology Neurology
DX: G62.9 Polyneuropathy, unspecified (principal); E11.9 Type 2 diabetes mellitus without complications
CPT/HCPCS: 36415; 80048; 83036; 85025; 85652; 86140

== ENCOUNTER 2023-02-09 11:14 | Outpatient (REF) | payer MEDICARE, MEDICAID, SELFPAY ==
--- NOTE | ~2023-02-09 | XR_ITS ---
EXAMINATION: XR ANKLE, RIGHT CLINICAL INFORMATION: Right ankle pain. COMPARISON: 12/29/2022 and 11/24/2022 TECHNIQUE: AP, lateral, and mortise views of the right ankle. FINDINGS: There is again noted to be a healing fracture about the distal right fibula with increased periosteal new bone formation and marginal sclerosis with continued mild distraction of the lateral aspect of the fracture. There may be some degree of bony union about the medial aspect of the fracture. Ankle mortise appears intact. Question healing avulsion injury tip of the medial malleolus. There appears be some degree of osteopenia present about the distal tibia and fibula. XR/XR ankle RT min 3V IMPRESSION: No significant change in alignment of healing right ankle fractures.
[2023-02-14 01:13] LABS: Arsenic, 24H Urine <10 mcg/L (<=80); Cadmium, 24H Urine <0.5 mcg/L (<=5.0); Lead, 24H Urine <10 mcg/L (<80); Mercury, 24H Urine <4 mcg/L (<=20)
== END 2023-02-09 11:15 | disposition home or self-care (01) ==
LOC: HO.HOSX 11:14
PROVIDERS: Psychiatry & Neurology Neurology; Visit Provider Physician Assistant
DX: G62.9 Polyneuropathy, unspecified (principal); S82.831D Other fracture of upper and lower end of right fibula, subsequent encounter for closed fracture with routine healing; S82.891D Other fracture of right lower leg, subsequent encounter for closed fracture with routine healing
CPT/HCPCS: 73610; 82175; 82300; 83655; 83825

== ENCOUNTER 2023-02-09 13:15 | Outpatient (AMB) | payer MEDICARE, MEDICAID, SELFPAY ==
--- NOTE | 2023-02-09 13:49 | A.OFFVIS_ITS ---
Intake Vital Signs 02/09/23 13:53 Height 5 ft 6 in Weight 166 lb BMI 26.8 Intake Visit Reasons: OV- f/u right ankle fx w xrays Intake Note: Sidra is a 62 year old female who presents today for a follow up for her right ankle fx, DOI 11/25/22. Xrays updated. Patient is concerned of redness on her foot. She is tender to the touch at the medial and lateral aspect of ankle. She continues to wear boot as instructed. Allergies magnesium sulfate [From SUPREP] Allergy (Intermediate, Verified 02/09/23 13:54) RASH potassium [From SUPREP] Allergy (Intermediate, Verified 02/09/23 13:54) RASH sodium sulfate [From SUPREP] Allergy (Intermediate, Verified 02/09/23 13:54) RASH nabumetone [NABUMETONE] Allergy (Unknown, Verified 02/09/23 13:54) STOMACH UPSET sumatriptan [From IMITREX] Allergy (Unknown, Verified 02/09/23 13:54) NAUSEA & VOMITING, nausea,vomiting SuPrep Bowel Prep Kit (Na Sulf Allergy (Unknown, Uncoded 02/09/23 13:54) --Sulfa HPI OV- f/u right ankle fx w xrays HPI Details 62-year-old female who returns to the office today for a follow-up of right ankle fracture, 11/25/22. She states she has tenderness to touch at the medial and lateral aspect of her ankle. She also c/o redness on her foot. She continues to wear her boot as instructed. [facility] Medical History Chronic idiopathic constipation History of anemia Hx of colon cancer, stage I Hx of major depression Raynauds disease Tobacco dependence Surgical History H/O colonoscopy H/O right hemicolectomy History of esophagogastroduodenoscopy (EGD) Family History Maternal Aunt Colon cancer Father FH: colon polyps Social History Household Members: Significant Other Alcohol intake: current Alcohol intake frequency: does not drink Patient Tobacco Use Status: Current everyday Tobacco user Tobacco use type: Cigarette Cigarettes Per Day: 10 Current occupational status: unemployed Review of Systems Const All systems reviewed & are unremarkable except as noted in HPI and below Physical Exam Vital Signs: BMI result Body Mass Index 26.8 Extrem Other: Right ankle: Normal to inspection. She does have mild tenderness over the medial malleolus. Due to her neuropathy, she has very limited sensations throughout the rest of her foot. Pulses are present. Results Reviewed Results Reviewed: Xrays were obtained in the office today and personally reviewed by me of the right ankle show a non displaced distal fibular fracture with interval healing Assessment & Plan Assessment & Plan (1) Closed fracture of right distal fibula: Comment: Nondisplaced distal fibular fracture. Code(s): S82.831A - Other fracture of upper and lower end of right fibula, initial encounter for closed fracture (2) Avulsion fracture of right ankle: Comment: Nondisplaced avulsion injury of the tip of the medial malleolus. Code(s): S82.891A - Other fracture of right lower leg, initial encounter for closed fracture Plan She was given a lace-up ankle brace today in the office which she will transition to for ambulating. I would like her to begin a course of physical therapy to work on ROM, gentle strengthening and proprioceptive training. I would like to see her back in 6 weeks, sooner if needed. Orders: Orders XR ankle RT min 3V Today M25.571 - Pain in right ankle and joints of right foot PT Evaluation and Treatment Today S82.831A - Other fracture of upper and lower end of right fibula, initial encounter for closed fracture, S82.891A - Other fracture of right lower leg, initial encounter for closed fracture Patient Instructions: Scribed for Renata Funes PA-C, by Jhonatan Canales vice president medical affairs, on 02/09/2023 at 1:45 PM PHILLIP. Renata Gunter PA-C, have personally reviewed and agree with the information entered by the scribe. Coding Level of Care Code Global (64873) Diagnoses Closed fracture of right distal fibula S82.831A Avulsion fracture of right ankle S82.891A
[2023-02-09 13:53] VITALS: BMI 26.8
== END 2023-02-09 14:27 | disposition home or self-care (01) ==
PROVIDERS: PCP Internal Medicine Medical Oncology; Visit Provider Physician Assistant
DX: S82.831A Other fracture of upper and lower end of right fibula, initial encounter for closed fracture (principal); S82.891A Other fracture of right lower leg, initial encounter for closed fracture
CPT/HCPCS: 99024

== ENCOUNTER 2023-03-27 06:50 | Outpatient (REF) | payer MEDICARE, MEDICAID, SELFPAY | END 2023-03-27 06:51 | disposition home or self-care (01) | LOC: HO.HOSX 06:50 | PROVIDERS: Visit Provider Physician Assistant | DX: Z13.89 Encounter for screening for other disorder (principal) ==

== ENCOUNTER 2023-09-22 16:55 | Outpatient (REF) | payer MEDICARE, MEDICAID, SELFPAY ==
[2023-09-22 19:08] LABS: Erythrocyte Sedimentation Rate 38 MM/HR (0-20)
[2023-09-22 19:14] LABS: Rheumatoid Factor < 13.0 IU/mL (<15.0)
[2023-09-22 19:16] LABS: C Reactive Protein 0.65 mg/dL (< or = 0.50)
[2023-09-22 19:32] LABS: Free T4 (Free Thyroxine) 0.84 ng/dL (0.71-1.85); Thyroid Stimulating Hormone 3.58 uIU/mL (0.32-4.0)
[2023-09-25 22:03] LABS: Prot Elec - Albumin 4.2 g/dL (3.8-4.8); Prot Elec - Alpha1 0.4 g/dL (0.2-0.3); Prot Elec - Alpha2 0.7 g/dL (0.5-0.9); Prot Elec - Beta 1 0.4 g/dL (0.4-0.6); Prot Elec - Beta 2 0.4 g/dL (0.2-0.5); Prot Elec - Total Protein 7.1 g/dL (6.1-8.1)
[2023-09-29 15:19] LABS: Anti Nuclear Antibody Screen POSITIVE (NEGATIVE); Anti Nuclear Antibody Titer 1:40 titer
[2023-10-12 10:23] LABS: Cryoglobulin, Qual POSITIVE
== END 2023-09-22 16:56 | disposition home or self-care (01) ==
LOC: HO.LAB 16:55
PROVIDERS: PCP Internal Medicine Medical Oncology; Visit Provider Internal Medicine Medical Oncology
DX: F32.9 Major depressive disorder, single episode, unspecified (principal); E78.5 Hyperlipidemia, unspecified; E61.1 Iron deficiency; I73.00 Raynaud's syndrome without gangrene; E03.9 Hypothyroidism, unspecified; R63.6 Underweight
CPT/HCPCS: 36415; 82595; 84165; 84439; 84443; 85652; 86038; 86039; 86140; 86431

== ENCOUNTER 2023-10-02 14:08 | Outpatient (REF) | payer MEDICARE, MEDICAID, SELFPAY ==
--- NOTE | ~2023-10-02 | US_ITS ---
EXAMINATION: BILATERAL LOWER EXTREMITY DUPLEX CLINICAL INFORMATION: Peripheral vascular disease COMPARISON: Lower extremity arterial exam 07/22/2021 TECHNIQUE: Real-time ultrasound and Doppler techniques (integrating B-mode 2-D vascular images, Doppler spectral analysis and color flow Doppler imaging) were utilized to interrogate the lower extremities. FINDINGS: RIGHT LEG: Common femoral artery: 142 cm/s, biphasic Profunda femoris artery: 36 cm/s, biphasic Superficial femoral artery (proximal): 74 cm/s, biphasic Superficial femoral artery (mid): 75 cm/s, biphasic Superficial femoral artery (distal): 51 cm/s, biphasic Proximal popliteal artery: 39 cm/s, biphasic Posterior tibial artery: 70 cm/s, biphasic LEFT LEG: Common femoral artery: 82 cm/s, biphasic Profunda femoris artery: 55 cm/s, monophasic Superficial femoral artery (proximal): 89 cm/s, biphasic Superficial femoral artery (mid): 68 cm/s, biphasic Superficial femoral artery (distal): 72 cm/s, biphasic Popliteal artery: 61 cm/s, biphasic Posterior tibial artery: 62 cm/s, biphasic US/US arterial duplex LE IMPRESSION: Plaque in the right common femoral artery causing mild stenosis by velocity criteria.
== END 2023-10-02 14:09 | disposition home or self-care (01) ==
LOC: HO.US 14:08
PROVIDERS: PCP Internal Medicine Medical Oncology; Visit Provider Internal Medicine Medical Oncology
DX: I73.9 Peripheral vascular disease, unspecified (principal); Z87.891 Personal history of nicotine dependence
CPT/HCPCS: 93925

== ENCOUNTER 2023-12-20 16:56 | Emergency (ER) | payer MEDICARE, MEDICAID, SELFPAY ==
--- NOTE | ~2023-12-20 | US_ITS ---
EXAMINATION: US VENOUS ULTRASOUND WITH DOPPLER LOWER EXTREMITY, BILATERAL CLINICAL INFORMATION: Pain COMPARISON: None available. TECHNIQUE: Ultrasound of the deep veins is performed from the hip to the calf with compression sonography and color and pulse Doppler assessment. Spectral analysis with color-flow imaging is performed. FINDINGS: RIGHT: There is normal venous compression and respiratory variation and augmented flow. The visualized common femoral vein, superficial femoral vein, profunda femoral vein, popliteal vein, and the trifurcation region shows no evidence of deep venous thrombosis. There is no significant popliteal fossa cyst. LEFT: There is normal venous compression and respiratory variation and augmented flow. The visualized common femoral vein, superficial femoral vein, profunda femoral vein, popliteal vein, and the trifurcation region shows no evidence of deep venous thrombosis. There is no significant popliteal fossa cyst. US/US venous duplex LE BI IMPRESSION: No DVT demonstrated in the bilateral lower extremity.
--- NOTE | ~2023-12-20 | XR_ITS ---
EXAMINATION: XR CHEST CLINICAL INFORMATION: Cough nausea vomiting COMPARISON: CT chest from 03/26/2015 TECHNIQUE: 2 views of the chest were obtained. FINDINGS: Hyperinflation bilateral lung villalpando. No pneumothorax. Trachea is midline. Cardiac mediastinal silhouette is not enlarged. No large pleural effusion. Osseous structures are intact. Soft tissues are unremarkable. XR/XR chest 2V IMPRESSION: No acute cardiopulmonary process.
--- NOTE | 2023-12-20 16:58 | ED_ITS ---
HPI - General Adult General Chief complaint: Nausea/Vomiting/Diarrhea Stated complaint: vomiting, dr prescribed nausea med, not working Time Seen by Provider: 12/20/23 17:44 Source: patient, RN notes reviewed and old records reviewed Mode of arrival: ambulatory Limitations: no limitations History of Present Illness ED Provider: Valery HPI narrative: 63-year-old female with past medical history significant for peripheral neuropathy, peripheral artery disease, history of colon cancer, anemia presents for evaluation of vomiting. Patient reports that she has been sick for approximately 1 week pain She endorses nausea, vomiting and persistent cough. She reports increased weakness, body aches and shortness of breath with exertion She reports returning from [place] 5 days ago on Monday. She states that a family member had pneumonia last week Patient also reports that she has had increased muscle cramps and pains in her legs since before she was sick a little over week ago She denies any fevers or chills at home Related Data Home Medications ?Medication ?Instructions ?Recorded ?Confirmed ferrous sulfate 325 mg (65 mg 325 mg PO DAILY 07/27/21 09/03/21 iron) tablet (FeroSul) verapamil 240 mg tablet,extended 240 mg PO DAILY 12/01/22 release Previous Rx's ?Medication ?Instructions ?Recorded linaclotide 145 mcg capsule 145 mcg PO QAM 30 days #30 caps 11/11/21 (Linzess) albuterol sulfate 90 mcg/actuation 2 puff inhalation Q4-6H PRN 12/21/23 aerosol inhaler shortness of breath or wheezing #8.5 grams metoclopramide HCl 10 mg tablet 10 mg PO Q6H PRN nausea and 12/21/23 (Reglan) vomiting #20 tabs Allergies Allergy/AdvReac Type Severity Reaction Status Date / Time magnesium sulfate Allergy Intermediate RASH Verified 12/20/23 17:03 [From SUPREP] potassium [From SUPREP] Allergy Intermediate RASH Verified 12/20/23 17:03 sodium sulfate [From SUPREP] Allergy Intermediate RASH Verified 12/20/23 17:03 nabumetone [NABUMETONE] Allergy Unknown STOMACH Verified 12/20/23 17:03 UPSET sumatriptan [From IMITREX] Allergy Unknown NAUSEA & Verified 12/20/23 17:03 VOMITING, nausea,vomiting SuPrep Bowel Prep Kit (Na Allergy Unknown --Sulfa Uncoded 12/20/23 17:03 Sulf Review of Systems 2 Constitutional: Constitutional: Reports body ache(s), Denies chills, Denies fever(s), Reports headache(s), Reports lethargy, Reports malaise and Reports weakness Eyes: Eyes: Denies blurry vision ENT: Reports headache(s) and Denies sore throat Cardiovascular: Cardiovascular: Denies chest pain and Reports dyspnea Respiratory: Respiratory: Reports chest congestion, Reports cough and Reports dyspnea Gastrointestinal: Gastrointestinal: Denies abdominal pain, Denies hematochezia, Reports nausea and Reports vomiting Musculoskeletal: Musculoskeletal: Denies back pain Integumentary/Breasts: Skin/Breast: Denies rash Neurologic: Reports headache(s) and Reports weakness PMFSH Past Medical History Medical History Chronic idiopathic constipation History of anemia Hx of colon cancer, stage I Hx of major depression Raynauds disease Tobacco dependence Surgical History H/O colonoscopy H/O right hemicolectomy History of esophagogastroduodenoscopy (EGD) Family History Family History Maternal Aunt Colon cancer Father FH: colon polyps Social History Social History Household Members: Significant Other Alcohol intake: current Alcohol intake frequency: does not drink Patient Tobacco Use Status: Current everyday Tobacco user Tobacco use type: Cigarette Cigarettes Per Day: 10 Advance Directives: No Advance Directives Information Provided: No Patient : No Current occupational status: unemployed Physical Exam ED Vital Signs: Vital Signs - 24 hr 12/20/23 17:01 12/20/23 17:25 12/20/23 18:30 Temperature 98 F 98 F Pulse Rate 73 71 77 Respiratory Rate 19 16 Blood Pressure 121/70 115/55 L Pulse Oximetry 91 L 91 L Oxygen Delivery Method Room Air 12/20/23 20:00 12/20/23 22:00 Temperature 98.1 F 98.3 F Pulse Rate 87 63 Respiratory Rate Blood Pressure 154/84 H 121/70 Pulse Oximetry 93 95 Oxygen Delivery Method Room Air Room Air BMI result Body Mass Index 25.1 Const General: healthy appearing, comfortable, no acute distress, alert and awake Nutritional Appearance: well nourished Orientation/consciousness: patient oriented x3 HENMT Head: Yes normocephalic and Yes atraumatic Eyes Eyelids: Yes eyelids normal Conjunctivae: conjunctivae normal Sclerae: sclerae normal Corneas: corneas normal Pupils: Equal, round and reactive pupils present EOM: EOMs intact bilaterally Neck Neck: Yes full ROM Resp Effort & Inspection: normal respiratory effort, able to speak in complete sentences and not labored GI Inspection: No distended Palpation (GI): Soft to palpation, not firm, nontender, no guarding and not rigid Skin General skin exam: elasticity normal Neuro General: patient oriented x3 Cranial nerves: Yes Equal, round and reactive pupils present and Yes Bilaterally intact EOM present Cognition (Neuro): normal cognition Extrem Other: Moving all extremities well without any obvious deformities Course Course Course Narrative: This is a rapid medical exam performed by En Lane NP: Additional HPI, ROS, PE not included below will be deferred to primary provider. Patient is a 63-year-old female presenting to the ED with complaint of nausea and vomiting for the past week. First day had diarrhea, has had nausea and vomiting since. PCP prescribed zofran without relief. Also complains of cough. States sxs began on airplane returning from [place]. Mother was sick with similar sxs immediately prior, was hospitalized for pna. Pain to both sides of abdomen. Also complains of sensitivity to buttocks, states the wrinkles in the sheets cause pain. Denies rash. Denies recent antibiotics. Denies fevers. Plan: labs, viral swab, cxr Reevaluation(s) Reevaluation #1: Patient passed ambulation trial, her oxygen saturation was 95%, she is stable for discharge. She reports feeling better Time: 00:04 Medications Administered Discontinued Medications Generic Name Dose Route Start Last Admin Trade Name Freq PRN Reason Stop Dose Admin Albuterol/Ipratropium 3 ml 12/20/23 18:17 12/20/23 18:29 Albuterol/Iprat 2.5/0.5mg 3 Ml Ampul.Neb INHALE 12/20/23 18:18 3 ml ONCE ONE Administration Sodium Chloride 1,000 mls @ 999 mls/hr 12/20/23 18:30 12/20/23 20:16 Ns IV 12/20/23 19:30 Infused .Q1H1M KATARINA Infusion Ketorolac Tromethamine 30 mg 12/20/23 18:16 12/20/23 19:11 Ketorolac Tromethamine 30 Mg/Ml Vial IVPUSH 12/20/23 18:17 30 mg ONCE ONE Administration Metoclopramide HCl 10 mg 12/20/23 20:24 12/20/23 20:29 Metoclopramide Hcl 10 Mg/2 Ml Vial IVPUSH 12/20/23 20:25 10 mg ONCE ONE Administration Ondansetron HCl 4 mg 12/20/23 18:16 12/20/23 19:10 Ondansetron Hcl 4 Mg/2 Ml Vial IVPUSH 12/20/23 18:17 4 mg ONCE ONE Administration Medical Decision Making Medical Decision Making [facility] Narrative: 63-year-old female with past medical history as documented above presents for evaluation of multiple symptoms including cough, vomiting, weakness. She does have a leukopenia of 2.2. No significant anemia. Thrombocytopenia with a platelet count [id number]. Unclear etiology but the patient does have a history of colon cancer. Patient's chemistries showed no electrolyte abnormalities. Renal function within normal limits. Patient's LFTs are slightly elevated. Her sat was noted to be 91% on room air. Plan for chest x-ray. She did test positive for influenza but has been symptomatic for a week. The patient reports bilateral leg cramping after flying to [place] and these have persisted. It may be related to her virus but we will get ultrasound to evaluate for DVT Differential Diagnosis Differential Diagnoses: The differential diagnosis associated with the presentation includes Pneumonia Influenza DVT CHF Bronchitis Nausea and vomiting Lab Data [facility] Lab Attestation statement: I reviewed the patient's lab results. See medical decision making above 12/20/23 17:14 12/20/23 17:14 Labs: Lab Results 12/20/23 12/20/23 Range/Units 17:14 17:29 WBC 2.2 L (4.8-10.8) X10*3/uL RBC 4.36 (4.20-5.50) X10*6/uL Hgb 14.1 (12.0-16.0) g/dl Hct 38.8 (37.0-47.0) % MCV 89.0 (80.0-98.0) fL MCH 32.3 (27.0-33.0) pg MCHC 36.3 H (31.0-35.0) g/dl RDW 12.3 (11.0-16.0) % Plt Count 98 L D (160-400) X10*3/uL MPV 11.5 (9.4-12.3) fL Immature Gran % (Auto) 0.5 H (0.0-0.4) % Neut % (Auto) 47.8 (45-73) % Lymph % (Auto) 37.8 (20-40) % [facility] % (Auto) 12.9 H (2-11) % Eos % (Auto) 0.5 (0-4) % Baso % (Auto) 0.5 (0-2) % Lymph # (Auto) 0.8 L (1.2-4.9) X10*3/uL [facility] # (Auto) 0.3 (0.1-1.2) X10*3/uL Eos # (Auto) 0.0 (0.0-0.4) X10*3/uL Baso # (Auto) 0.0 (0.0-0.2) X10*3/uL Abs Immat Gran (auto) 0.01 (0.00-0.03) X10*3/uL Absolute Neuts (auto) 1.0 L (2.0-8.3) x10*3/uL Absolute Nucleated RBC 0.000 (0.0-0.012) X10*3/uL Nucleated RBC % (auto) 0.0 (0.0-0.2) /100WBC Smear Tech's Comments VERIFIED Sodium 136 (135-145) mmol/L Potassium 3.4 (3.3-5.1) mmol/L Chloride 104 (96-108) mmol/L Carbon Dioxide 23 (22-29) mmol/L Anion Gap 12 (12-20) BUN 10 (9-16) mg/dL Creatinine 1.19 (0.5-1.4) mg/dL Estim Creat Clear Calc 47.0 Estimated GFR 46 Random Glucose 100 (60-115) mg/dL Calcium 9.3 D (8.4-10.2) mg/dL Total Bilirubin 0.3 (0.0-1.0) mg/dL AST 132 H (5-31) U/L ALT 91 H (0-31) U/L Alkaline Phosphatase 141 H (39-117) U/L Total Protein 7.1 (6.5-8.0) g/dL Albumin 3.9 (3.5-5.0) g/dL Urine Color Dark Yellow Urine Appearance Clear Urine pH 6.0 (5.0-9.0) Ur Specific [place] 1.025 (1.005-1.025) Urine Protein 30 (1+) H (Neg-Trace) mg/dL Urine Glucose (UA) Negative (Negative) mg/dL Urine Ketones 15 (Negative) mg/dL Urine Blood Negative (Negative) Urine Nitrite Negative (Negative) Ur Leukocyte Esterase Negative (Negative) Urine RBC 3-5 H (0-2) /HPF Urine WBC 0-5 (0-5) /HPF Ur Squamous Epith Cells 3-5 (0-2) /HPF Urine Bacteria None Seen (None Seen) Hyaline Casts 3-5 (0-2) /LPF Influenza Type A (PCR) POSITIVE A (Negative) Influenza Type B (PCR) NEGATIVE (Negative) RSV RNA Qual (PCR) NEGATIVE (Negative) SARS-CoV-2 RNA (RT-PCR) NEGATIVE (Negative) Independent Interpretation I performed an independent interpretation of an: Plain X-Ray (No focal infiltrates) Radiology Impression Discussion of test interpretation with radiology: I have reviewed the radiologist's reading. Radiologist Impression: US/US venous duplex LE BI IMPRESSION: No DVT demonstrated in the bilateral lower extremity. XR/XR chest 2V IMPRESSION: No acute cardiopulmonary process. Discharge Plan Discharge Clinical Impression: Influenza Patient Disposition: Home, Self-Care Instructions: Influenza (ED) Additional Instructions: Your workup in the ER today was reassuring. You did test positive for influenza. Your blood work was reassuring and your chest x-ray did not show pneumonia Use the albuterol inhaler as needed for shortness of breath/wheezing Use the Reglan as needed for nausea/vomiting Follow-up with your primary doctor, return for new or worsening symptoms Prescriptions: New albuterol sulfate 90 mcg/actuation HFA aerosol inhaler 2 puff inhalation Q4-6H PRN (Reason: shortness of breath or wheezing) Qty: 8.5 0RF metoclopramide HCl [Reglan] 10 mg tablet 10 mg PO Q6H PRN (Reason: nausea and vomiting) Qty: 20 0RF No Action Linzess 145 mcg capsule 145 mcg PO QAM 30 Days Qty: 30 3RF ferrous sulfate [FeroSul] 325 mg (65 mg iron) tablet 325 mg PO DAILY verapamil 240 mg tablet extended release 240 mg PO DAILY Print Language: Cook Islander
[2023-12-20 17:01] VITALS: BP 121/70; PULSE 73; RESP 19; TEMP 36.6; O2SAT 91; BMI 25.1
[2023-12-20 17:25] VITALS: BP 115/55; PULSE 71; TEMP 36.6; O2SAT 91
[2023-12-20 17:27] LABS: Basophils Percent Auto 0.5 % (0-2); Eosinophils Percent Auto 0.5 % (0-4); Hematocrit 38.8 % (37.0-47.0); Hemoglobin 14.1 g/dl (12.0-16.0); Imm Gran Abs Auto 0.01 X10*3/uL (0.00-0.03); Imm Gran Pct Auto 0.5 % (0.0-0.4); Lymphocytes Absolute Auto 0.8 X10*3/uL (1.2-4.9); Lymphocytes Percent Auto 37.8 % (20-40); MANUAL DIFF FLAG SCAN; Mean Corpuscular HGB Conc 36.3 g/dl (31.0-35.0); Mean Corpuscular Hemoglobin 32.3 pg (27.0-33.0); Mean Platelet Volume 11.5 fL (9.4-12.3); Monocytes Absolute Auto 0.3 X10*3/uL (0.1-1.2); Monocytes Percent Auto 12.9 % (2-11); Neutrophils Percent Auto 47.8 % (45-73); Platelet Count 98 X10*3/uL (160-400); Red Blood Count 4.36 X10*6/uL (4.20-5.50); Red Cell Distribution Width 12.3 % (11.0-16.0); SCAN SMEAR FLAG 1; White Blood Count 2.2 X10*3/uL (4.8-10.8)
[2023-12-20 17:40] LABS: Alanine Aminotransferase 91 U/L (0-31); Albumin Level 3.9 g/dL (3.5-5.0); Alkaline Phosphatase 141 U/L (39-117); Anion Gap 12 (12-20); Aspartate Amino Transferase 132 U/L (5-31); Bilirubin Total 0.3 mg/dL (0.0-1.0); Blood Urea Nitrogen 10 mg/dL (9-16); Calcium 9.3 mg/dL (8.4-10.2); Carbon Dioxide 23 mmol/L (22-29); Chloride 104 mmol/L (96-108); Estimated Glomerular Filt Rate 46; Glucose Random 100 mg/dL (60-115); Potassium 3.4 mmol/L (3.3-5.1); Sodium 136 mmol/L (135-145); Total Protein 7.1 g/dL (6.5-8.0)
[2023-12-20 17:44] LABS: Appearance Urine Clear; Color Urine Dark Yellow; Glucose Urine UA Negative (Negative); Leukocyte Esterase Urine Negative (Negative); Nitrite Urine Negative (Negative); Specific Gravity - Urine 1.025 (1.005-1.025); UMIC TRIGGER UACC YES; Urine Blood Negative (Negative); Urine Ketones 15 mg/dL (Negative); Urine Protein 30 (1+) mg/dL (Neg-Trace)
[2023-12-20 17:44] LABS: SLIDE REVIEW VERIFIED
[2023-12-20 17:58] LABS: Bacteria Urine None Seen (None Seen); WBC Urine 0-5 /HPF (0-5)
[2023-12-20 18:02] LABS: Influenza A PCR POSITIVE (Negative); Influenza B PCR NEGATIVE (Negative); Resp Syncy Virus RNA Qual PCR NEGATIVE (Negative); SARS COV2 PCR INHOUSE NEGATIVE (Negative)
[2023-12-20] MEDS: Albuterol/Iprat 2.5/0.5MG 3 ML AMPUL.NEB INHALE (18:29)
[2023-12-20 18:30] VITALS: PULSE 77; RESP 16; O2SAT 94
[2023-12-20] MEDS: 0.9 % Sodium Chloride 1,000 ML 999 ML IV (19:06)
[2023-12-20] MEDS: ondansetron HCL 4 MG/2 ML VIAL IVPUSH (19:10)
[2023-12-20] MEDS: Ketorolac Tromethamine 30 MG/ML VIAL IVPUSH (19:11)
[2023-12-20 20:00] VITALS: BP 154/84; PULSE 87; TEMP 36.7; O2SAT 93
[2023-12-20] MEDS: Metoclopramide HCl 10 MG/2 ML VIAL IVPUSH (20:29)
--- NOTE | 2023-12-20 20:31 | PC.NURSE ---
pt vomited clear orange tinged liquid. reports itchy feet which she thinks is attributed to the zofran. Kalpesh BURRELL notified. Keyanna ordered and given
[2023-12-20 22:00] VITALS: BP 121/70; PULSE 63; TEMP 36.8; O2SAT 95
[2023-12-21 00:01] VITALS: BP 124/77; PULSE 68; RESP 16; O2SAT 95
[2023-12-21 00:30] VITALS: BP 124/77; PULSE 68; RESP 16; TEMP 36.7; O2SAT 95
== END 2023-12-21 00:45 | disposition home or self-care (01) ==
PROVIDERS: Registered Nurse Emergency; Emergency Provider Emergency Medicine Emergency Medical Services; PCP Internal Medicine Medical Oncology
DX: J10.1 Influenza due to other identified influenza virus with other respiratory manifestations (principal); R11.2 Nausea with vomiting, unspecified; R53.83 Other fatigue; R53.1 Weakness; R06.02 Shortness of breath; R51.9 Headache, unspecified; F17.210 Nicotine dependence, cigarettes, uncomplicated; Z11.52 Encounter for screening for COVID-19
CPT/HCPCS: 0241U; 71046; 80053; 81001; 85025; 93970; 94640; 96361; 96374; 96375; 99284; 99285; J1885; J2405; J2765

== ENCOUNTER 2024-03-13 21:51 | Emergency (ER) | payer MEDICARE, MEDICAID, SELFPAY ==
--- NOTE | ~2024-03-13 | XR_ITS ---
EXAMINATION: XR WRIST, LEFT CLINICAL INFORMATION: Fall. COMPARISON: None TECHNIQUE: PA, lateral, oblique, and scaphoid views of the left wrist. FINDINGS: Bones are osteopenic. Soft tissues are swollen. No fracture or malalignment. Joint spaces are well preserved. Carpal alignment appears appropriate. No erosions. XR/XR wrist LT 2V IMPRESSION: Soft tissue swelling. No acute fracture or malalignment. Electronically signed by: Landon Gomez MD 03/14/2024 12:03 AM EDT
[2024-03-13 22:42] VITALS: BP 129/77; PULSE 68; RESP 20; TEMP 36.9; O2SAT 98; BMI 26.0
--- NOTE | 2024-03-14 01:36 | ED.EXTPRO ---
HPI - Extremity Problem General Chief complaint: Extremity Injury, Upper Stated complaint: L wrist inj Time Seen by Provider: 03/14/24 01:07 Source: patient, RN notes reviewed and old records reviewed Mode of arrival: ambulatory Limitations: no limitations History of Present Illness ED Provider: Valery HPI Narrative: 63-year-old female presents for evaluation of left wrist pain. Patient reports that she was opening a door of a stool when she tripped and fell onto her left side She fell on an outstretched hand She complains of left wrist pain. She did not hit her head or lose consciousness She reports 10/10 pain to the left breast The pain does not radiate to her hand or fingers or up towards her elbow No other complaints or concerns at this time Related Data Home Medications ?Medication ?Instructions ?Recorded ?Confirmed ferrous sulfate 325 mg (65 mg 325 mg PO DAILY 07/27/21 09/03/21 iron) tablet (FeroSul) verapamil 240 mg tablet,extended 240 mg PO DAILY 12/01/22 release Previous Rx's ?Medication ?Instructions ?Recorded linaclotide 145 mcg capsule 145 mcg PO QAM 30 days #30 caps 11/11/21 (Linzess) albuterol sulfate 90 mcg/actuation 2 puff inhalation Q4-6H PRN 12/21/23 aerosol inhaler shortness of breath or wheezing #8.5 grams metoclopramide HCl 10 mg tablet 10 mg PO Q6H PRN nausea and 12/21/23 (Reglan) vomiting #20 tabs Allergies Allergy/AdvReac Type Severity Reaction Status Date / Time magnesium sulfate Allergy Intermediate RASH Verified 03/13/24 22:44 [From SUPREP] potassium [From SUPREP] Allergy Intermediate RASH Verified 03/13/24 22:44 sodium sulfate [From SUPREP] Allergy Intermediate RASH Verified 03/13/24 22:44 nabumetone [NABUMETONE] Allergy Unknown STOMACH Verified 03/13/24 22:44 UPSET sumatriptan [From IMITREX] Allergy Unknown NAUSEA & Verified 03/13/24 22:44 VOMITING, nausea,vomiting SuPrep Bowel Prep Kit (Na Allergy Unknown --Sulfa Uncoded 03/13/24 22:44 Sulf Review of Systems Constitutional: Constitutional: Denies chills, Denies fever(s) and Denies headache(s) ENT: Denies headache(s) Cardiovascular: Cardiovascular: Denies chest pain Musculoskeletal: Musculoskeletal: Reports arthralgias, Reports joint swelling and Reports limited range of motion Integumentary/Breasts: Skin/Breast: Denies rash Neurologic: Denies headache(s) [facility] Past Medical History Medical History Chronic idiopathic constipation History of anemia Hx of colon cancer, stage I Hx of major depression Raynauds disease Tobacco dependence Surgical History H/O colonoscopy H/O right hemicolectomy History of esophagogastroduodenoscopy (EGD) Family History Family History Maternal Aunt Colon cancer Father FH: colon polyps Social History Social History Household Members: Significant Other Alcohol intake: current Alcohol intake frequency: does not drink Patient Tobacco Use Status: Current everyday Tobacco user Tobacco use type: Cigarette Cigarettes Per Day: 10 Advance Directives: No Advance Directives Information Provided: Yes Do you have a plan to hurt others: No Plan Current occupational status: unemployed Physical Exam Vital Signs: Vital Signs: Last Vital Signs Temp 98.4 F 03/13/24 22:42 Pulse 68 03/13/24 22:42 Resp 20 03/13/24 22:42 BP 129/77 03/13/24 22:42 Pulse Ox 98 03/13/24 22:42 O2 Del Method Room Air 03/13/24 22:42 BMI result Body Mass Index 26.0 Const: General: healthy appearing, comfortable, no acute distress, alert and awake Nutritional Appearance: well nourished Orientation/consciousness: patient oriented x3 HEENT: Head: Yes normocephalic and Yes atraumatic Eyes: Eyelids: Yes eyelids normal Conjunctivae: conjunctivae normal Sclerae: sclerae normal Corneas: corneas normal Pupils: Equal, round and reactive pupils present EOM: EOMs intact bilaterally Neck: Neck: Yes full ROM Resp: Effort & Inspection: normal respiratory effort, able to speak in complete sentences and not labored Skin: General skin exam: elasticity normal Neuro: General: patient oriented x3 Cranial nerves: Yes Equal, round and reactive pupils present and Yes Bilaterally intact EOM present Cognition (Neuro): normal cognition Extrem: Other: Patient has mild edema to the dorsal surface of the left wrist. There is some tenderness to the distal radius and distal ulna. No obvious deformity. The patient does have reduced range of motion flexion of the left wrist. She has full extension. There was no tenderness extending up into the metacarpals and no tenderness of the elbow. Medical Decision Making Medical Decision Making MDM Narrative: 63-year-old female presents for evaluation of left wrist pain after a fall on outstretched hand. X-ray is negative for fracture. She was placed in a Velcro splint. She does have some generalized left wrist tenderness, there is no specific point tenderness over the scaphoid but the patient was instructed to return if she has pain in the area after 1 week for repeat x-ray. Differential Diagnosis Differential Diagnoses: The differential diagnosis associated with the presentation includes Wrist sprain Wrist fracture Wrist dislocation Contusion Independent Interpretation I performed an independent interpretation of an: Plain X-Ray Interpretation: Agree with Radiology interpretation, no obvious fracture or dislocation Radiology Impression Discussion of test interpretation with radiology: I have reviewed the radiologist's reading. Radiologist Impression: XR/XR wrist LT 2V IMPRESSION: Soft tissue swelling. No acute fracture or malalignment. Discharge Plan Discharge Clinical Impression: Left wrist sprain Patient Disposition: Home, Self-Care Instructions: Wrist Sprain (ED) Additional Instructions: Your x-ray did not show any obvious fracture. Continue ibuprofen, Tylenol, ice and elevation. If you are still having pain on the edge of your wrist on the thumb side, you should get another x-ray in 1 week Follow-up with your primary doctor, return for new or worsening symptoms Prescriptions: No Action Linzess 145 mcg capsule 145 mcg PO QAM 30 Days Qty: 30 3RF albuterol sulfate 90 mcg/actuation HFA aerosol inhaler 2 puff inhalation Q4-6H PRN (Reason: shortness of breath or wheezing) Qty: 8.5 0RF metoclopramide HCl [Reglan] 10 mg tablet 10 mg PO Q6H PRN (Reason: nausea and vomiting) Qty: 20 0RF ferrous sulfate [FeroSul] 325 mg (65 mg iron) tablet 325 mg PO DAILY verapamil 240 mg tablet extended release 240 mg PO DAILY Print Language: Greenlandic
[2024-03-14 05:36] VITALS: BP 129/77; PULSE 68; RESP 20; TEMP 36.9; O2SAT 98
== END 2024-03-14 02:12 | disposition home or self-care (01) ==
PROVIDERS: Emergency Provider Emergency Medicine; PCP Internal Medicine Medical Oncology
DX: S63.502A Unspecified sprain of left wrist, initial encounter (principal); M25.532 Pain in left wrist; X58.XXXA Exposure to other specified factors, initial encounter; Y93.89 Activity, other specified; Y92.89 Other specified places as the place of occurrence of the external cause; Y99.8 Other external cause status
CPT/HCPCS: 29125; 73100; 99283; 99284

== ENCOUNTER 2024-03-19 12:06 | Outpatient (REF) | payer MEDICARE, MEDICAID, SELFPAY ==
[2024-03-19 12:29] LABS: MANUAL DIFF FLAG NO
[2024-03-19 12:44] LABS: Basophils Percent Auto 0.7 % (0-2); Eosinophils Absolute Auto 0.2 X10*3/uL (0.0-0.4); Eosinophils Percent Auto 3.3 % (0-4); Hemoglobin 13.6 g/dl (12.0-16.0); Imm Gran Abs Auto 0.02 X10*3/uL (0.00-0.03); Imm Gran Pct Auto 0.3 % (0.0-0.4); Lymphocytes Absolute Auto 1.5 X10*3/uL (1.2-4.9); Lymphocytes Percent Auto 24.3 % (20-40); Mean Corpuscular HGB Conc 34.9 g/dl (31.0-35.0); Mean Corpuscular Hemoglobin 33.3 pg (27.0-33.0); Mean Corpuscular Volume 95.4 fL (80.0-98.0); Mean Platelet Volume 10.6 fL (9.4-12.3); Monocytes Absolute Auto 0.5 X10*3/uL (0.1-1.2); Monocytes Percent Auto 8.2 % (2-11); Neutrophils Absolute Auto 3.9 x10*3/uL (2.0-8.3); Neutrophils Percent Auto 63.2 % (45-73); Platelet Count 206 X10*3/uL (160-400); Red Blood Count 4.09 X10*6/uL (4.20-5.50); Red Cell Distribution Width 13.3 % (11.0-16.0); White Blood Count 6.1 X10*3/uL (4.8-10.8)
[2024-03-19 13:15] LABS: Alanine Aminotransferase 8 U/L (0-31); Alkaline Phosphatase 81 U/L (39-117); Anion Gap 10 (12-20); Aspartate Amino Transferase 12 U/L (5-31); Bilirubin Total 0.3 mg/dL (0.0-1.0); Blood Urea Nitrogen 16 mg/dL (9-16); Calcium 9.7 mg/dL (8.4-10.2); Carbon Dioxide 27 mmol/L (22-29); Chloride 109 mmol/L (96-108); Cholesterol 271 mg/dL (<200); Estimated Glomerular Filt Rate 58; Glucose Fasting 93 mg/dL (60-99); HDL Cholesterol 34 mg/dL (>40); LDL Cholesterol Calculated 203 mg/dL (<100); Potassium 5.3 mmol/L (3.3-5.1); Sodium 141 mmol/L (135-145); Total Protein 7.1 g/dL (6.5-8.0); Triglycerides 174 mg/dL (<150)
== END 2024-03-19 12:07 | disposition home or self-care (01) ==
LOC: HO.LAB 12:06
PROVIDERS: PCP Internal Medicine Medical Oncology; Visit Provider Internal Medicine Medical Oncology
DX: E78.5 Hyperlipidemia, unspecified (principal)
CPT/HCPCS: 36415; 80053; 80061; 85025

== ENCOUNTER 2024-04-23 07:19 | Outpatient (AMB) | payer MEDICARE, MEDICAID, SELFPAY ==
--- NOTE | 2024-04-23 07:27 | A.OFFVIS_ITS ---
Vital Signs 04/23/24 07:35 Height 5 ft 6 in Weight 157 lb 3.033 oz BMI 25.4 BP 112/60 Blood Pressure Location Lt brachial Position Sitting Pulse 83 Pulse Source Pulse Oximeter Pulse Oximetry (%) 98 Oxygen Delivery Method Room Air Intake Visit Reasons: Raynauds Intake Note: Patient presents for Raynauds. Allergies magnesium sulfate [From SUPREP] Allergy (Intermediate, Verified 03/13/24 22:44) RASH potassium [From SUPREP] Allergy (Intermediate, Verified 03/13/24 22:44) RASH sodium sulfate [From SUPREP] Allergy (Intermediate, Verified 03/13/24 22:44) RASH nabumetone [NABUMETONE] Allergy (Unknown, Verified 03/13/24 22:44) STOMACH UPSET sumatriptan [From IMITREX] Allergy (Unknown, Verified 03/13/24 22:44) NAUSEA & VOMITING, nausea,vomiting SuPrep Bowel Prep Kit (Na Sulf Allergy (Unknown, Uncoded 03/13/24 22:44) --Sulfa Medication List - Last Reconciled 04/23/24 by Lorri Parra MD escitalopram oxalate 20 mg PO DAILY ferrous sulfate (FeroSul) 325 mg PO DAILY gabapentin ER 900 mg PO QPM verapamil ER 240 mg PO DAILY HPI Comments Details: Patient is a 63-year-old current everyday smoker (50 pack years) with major depressive disorder and a history of suicidal attempt who presents for evaluation of color change to toes. Patient states that she started noticing her 3rd toe on bilateral feet change color over the past 3 years. Sometimes incited by changes in temperature particularly cold but she says she does notice that it can occur even if it is not cold. This is also associated with numbness/tingling/heavy feeling to the legs for the past 3 years also. This neuropathy type symptom has caused her to fall because she does not have good sensation in her feet. She denies any change in color to the exposure of cold in her hands or other toes. She denies worsening skin tightening, reflux, photosensitivity, oral/nasal ulcers, alopecia, dry eyes/dry mouth, dyspnea on exertion or shadia proximal muscle weakness. She does note that she has stiffness in her hands and her knees for about 30 minutes in the morning. No history of swelling to her joints. No family history of any autoimmune disease. No history of fingertip or 2 ulcers. Of note patient has had a significant depression history. Has been on several antidepressants including electroconvulsive therapy in the past. Currently she is on escitalopram. Does recall being on Klonopin for several years however had a suicidal attempt back in 2021 (intentional overdose of Klonopin) and her Klonopin was stopped at that time. [facility] Medical History (Updated 04/23/24 @ 08:16 by Lorri Parra MD) Vasculitis Raynauds disease History of anemia Tobacco dependence Hx of major depression Hx of colon cancer, stage I Chronic idiopathic constipation Surgical History History of esophagogastroduodenoscopy (EGD) H/O right hemicolectomy H/O colonoscopy Family History Maternal Aunt Colon cancer Father FH: colon polyps Social History Household Members: Significant Other Alcohol intake: current Alcohol intake frequency: does not drink Patient Tobacco Use Status: Current everyday Tobacco user Tobacco use type: Cigarette Cigarettes Per Day: 10 Current occupational status: unemployed Review of Systems Const Details: Review of Systems Constitutional: Denies fever, chills, weight loss ENT: Denies vision changes, eye pain or eye redness, dental caries, dry mouth GI: Denies nausea, vomiting, diarrhea, abdominal pain, change in BM Pulm: Denies SOB, GALINDO, hemoptysis, wheezing Cards: Denies chest pain, palpitations Skin: Denies rash, nail changes, photosensitivity, [employer]GR[employer]AT[employer]: Denies headaches, weakness, paresthesias, recurrent falls MSK: Complains joint stiffness. Denies joint swelling, muscle weakness, bone pain All other systems reviewed and are unremarkable except noted above Physical Exam Vital Signs: Last Vital Signs Pulse 83 04/23/24 07:35 BP 112/60 04/23/24 07:35 Pulse Ox 98 04/23/24 07:35 Oxygen Delivery Method Room Air 04/23/24 07:35 BMI result Body Mass Index 25.4 Const Other: Physical Examination Patient well appearing and in no apparent painful distress Able to rise from chair without support. ?Gait normal. Constitutional: ?Mucous membranes pink and moist patient alert and cooperative HEENT: ?Conjunctiva and sclera clear. ?Pupils equal round and reactive to light. ?No lymphadenopathy. ?Normal dentition. Resp: ?Normal respiratory effort and able to speak in complete sentences. ?Clear to auscultation bilaterally. ?No crackles, rales, rhonchi, wheezes heard. Cards: ?Regular rate and rhythm. ?S1 and S2 heard no murmurs. ?Radial pulses intact bilaterally MSK: ?No deformity, swelling, abnormalities noted to bilateral hands. ?No evidence of synovitis. ?Able to move all joints with full range of motion, without limitation. No proximal muscle weakness. Normal Fidel's test bilaterally. Normal capillary nail folds to both hands and feet Spider telangiectasias noted to bilateral cheeks Decreased sensation to light touch right worse than left. Results Reviewed Results Reviewed: Laboratory Tests 12/20/23 03/19/24 17:14 12:25 WBC 2.2 L 6.1 RBC 4.36 4.09 L Hgb 14.1 13.6 Hct 38.8 39.0 Plt Count 98 L D 206 D Sodium 136 141 Potassium 3.4 5.3 H D Chloride 104 109 H Carbon Dioxide 23 27 BUN 10 16 Creatinine 1.19 0.97 Calcium 9.3 D 9.7 Total Bilirubin 0.3 0.3 AST 132 H 12 ALT 91 H 8 Alkaline Phosphatase 141 H 81 Total Protein 7.1 7.1 Albumin 3.9 4.0 Results reviewed. 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 Differentials include vasculitis of other causes. Blood work sent including ANCA, cryo, antiphospholipid. We will need to check MRI angio of the lower extremities with contrast to confirm a diagnosis of Buerger's disease. Discussed with patient that the treatment of choice for this is to stop smoking. Patient currently on verapamil, discussed with patient why she was placed on this medication she does not know. She does not have any cardiac issues. We will stop verapamil today and start low-dose nifedipine ER 30 mg. Discussed with patient that if she feels lightheaded or has persistent headache she is to take half a pill. Plan I spent 40 minutes reviewing the record and labs, seeing the patient, discussing the treatment plan and documenting in the medical record Orders: Orders Beta-2 Glycoprotein Antibody Today I77.6 - Arteritis, unspecified Lupus Anticoagulant Panel Today I77.6 - Arteritis, unspecified ANCA Vasculitides Today I77.6 - Arteritis, unspecified Cryoglobulin Today I77.6 - Arteritis, unspecified Proteinase 3 PR3 Antibodies Today I77.6 - Arteritis, unspecified VALENTINE Reflex Titer and Pattern Today I77.6 - Arteritis, unspecified C Reactive Protein Today I77.6 - Arteritis, unspecified Erythrocyte Sedimentation Rate Today I77.6 - Arteritis, unspecified MR angio LE LT wo/w con Today I77.6 - Arteritis, unspecified Cardiolipin Antibodies Today I77.6 - Arteritis, unspecified Myeloperoxidase Antibody Today I77.6 - Arteritis, unspecified NE electromyogram (EMG) Today I77.6 - Arteritis, unspecified Rheumatoid Factor Today I77.6 - Arteritis, unspecified MR angio LE RT wo/w con Today I77.6 - Arteritis, unspecified Medications: New nifedipine ER 30 mg PO DAILY 90 days 90 tabs 0RF Coding Level of Care Code New Pt Level 4 (35679) Diagnoses Vasculitis I77.6
[2024-04-23 07:35] VITALS: BP 112/60; PULSE 83; O2SAT 98; BMI 25.4
== END 2024-04-23 08:22 | disposition home or self-care (01) ==
PROVIDERS: PCP Internal Medicine Medical Oncology; Visit Provider Student in an Organized Health Care Education/Training Program
DX: I77.6 Arteritis, unspecified (principal)
CPT/HCPCS: 99204

== ENCOUNTER 2024-04-23 07:19 | Outpatient (REF) | payer MEDICARE, MEDICAID, SELFPAY ==
[2024-04-23 09:43] LABS: C Reactive Protein 0.14 mg/dL (< or = 0.50)
[2024-04-23 09:53] LABS: Erythrocyte Sedimentation Rate 30 MM/HR (0-20)
[2024-04-23 10:12] LABS: Rheumatoid Factor < 13.0 IU/mL (<15.0)
[2024-04-24 20:28] LABS: Cardiolipin IgG Ab 5.6 GPL-U/mL; Cardiolipin IgM Ab >112.0 MPL-U/mL
[2024-04-25 14:18] LABS: Myeloperoxidase Antibody <1.0 AI; Proteinase 3 PR3 Antibodies <1.0 AI
[2024-04-25 21:49] LABS: Beta-2 Glycoprotein IgA <2.0 U/mL (<20.0); Beta-2 Glycoprotein IgG 5.3 U/mL (<20.0); Beta-2 Glycoprotein IgM >112.0 U/mL (<20.0)
[2024-04-26 16:03] LABS: Anti Nuclear Antibody Screen NEGATIVE (NEGATIVE)
[2024-04-26 23:24] LABS: DRVVT Confirmation Negative (Negative); Hexagonal Phase Neutralization Negative (Negative); PTT (LAC) Screen 59 sec (<=40)
[2024-04-30 19:29] LABS: Cryoglobulin, Qual Negative (Negative)
== END 2024-04-23 07:20 | disposition home or self-care (01) ==
LOC: HO.LAB 07:19
PROVIDERS: PCP Internal Medicine Medical Oncology; Visit Provider Student in an Organized Health Care Education/Training Program
DX: I77.6 Arteritis, unspecified (principal); I73.00 Raynaud's syndrome without gangrene; R79.1 Abnormal coagulation profile
CPT/HCPCS: 36415; 82595; 85597; 85598; 85613; 85652; 85730; 86021; 86038; 86140; 86146; 86147; 86431; 99202

== ENCOUNTER 2024-05-17 13:47 | Outpatient (REF) | payer MEDICARE, MEDICAID, SELFPAY ==
--- NOTE | 2024-05-17 13:49 | EMG_ITS ---
Chief complaint: Bilateral leg pain and feet numbness. Working diagnosis of vasculitis. Diagnosed peripheral neuropathy by EMG of Dr. Romero a year ago. Reason for referral: Evaluate for neuropathy Referred by: Dr. Parra Procedure done: Bilateral lower extremity NCS/EMG Precautions and/or limitations: None The limb temperature was monitored continuously and remained between 32-36 degrees C during the performance of the NCS. Nerve Conduction Studies Anti Sensory Summary Table ?Stim Site NR Onset (ms) Norm Onset (ms) Peak (ms) Norm Peak (ms) O-P Amp (?V) Norm O-P Amp Site1 Site2 Delta-0 (ms) Dist (cm) Bart (m/s) Norm Bart (m/s) Left Sural Anti Sensory (Lat Mall) Calf ? 5.3 6.0 <4.0 7.1 >5.0 Calf Lat Mall 5.3 14.0 26 Right Sural Anti Sensory (Lat Mall) Calf NR <4.0 >5.0 Calf Lat Mall 14.0 Motor Summary Table ?Stim Site NR Onset (ms) Norm Onset (ms) O-P Amp (mV) Norm O-P Amp iAmp (mV) Amp (1st) (%) Site1 Site2 Delta-0 (ms) Dist (cm) Bart (m/s) Norm Bart (m/s) Right Peroneal Motor (Ext Dig Brev) Ankle ? 4.3 <4.0 2.2 >2.5 2.6 100.0 Ankle Ext Dig Brev 4.3 0.0 B Fib ? 12.0 2.0 2.4 90.9 B Fib Ankle 7.7 31.5 41 >40 Poplt ? 12.9 2.0 2.4 90.9 Poplt B Fib 0.9 5.5 61 >40 Left Tibial Motor (Abd Sanches Brev) Ankle ? 4.1 <5 2.0 >2.5 2.7 100.0 Ankle Abd Sanches Brev 4.1 0.0 Knee ? 13.6 2.2 2.8 110.0 Knee Ankle 9.5 40.0 42 >40 Right Tibial Motor (Abd Sanches Brev) Ankle ? 4.2 <5 1.0 >2.5 1.4 100.0 Ankle Abd Sanches Brev 4.2 0.0 Knee ? 13.8 0.4 0.5 40.0 Knee Ankle 9.6 42.0 44 >40 EMG ?Side Muscle Nerve Root Ins Act Fibs Psw Amp Dur Poly Recrt Int Pat Comment Right AbdHallucis MedPlantar S1-2 Nml Nml Nml Nml Nml 0 Nml Complete Right AntTibialis Dp Br Peron L4-5 Nml Nml Nml Nml Nml 0 Nml Complete Right PostTibialis Tibial L5, S1 Nml Nml Nml Nml Nml 0 Nml Complete Right MedGastroc Tibial S1-2 Nml Nml Nml Nml Nml 0 Nml Complete Right VastusMed Femoral L2-4 Nml Nml Nml Nml Nml 0 Nml Complete Left AbdHallucis MedPlantar S1-2 Nml Nml Nml Nml Nml 0 Nml Complete Left AntTibialis Dp Br Peron L4-5 Nml Nml Nml Nml Nml 0 Nml Complete Left PostTibialis Tibial L5, S1 Nml Nml Nml Nml Nml 0 Nml Complete Left MedGastroc Tibial S1-2 Nml Nml Nml Nml Nml 0 Nml Complete Left VastusMed Femoral L2-4 Nml Nml Nml Nml Nml 0 Nml Complete Paraspinal EMG ?Side Muscle Nerve Root Ins Act Fibs Psw Comment Right Lumbar Upper Rami Nml Nml Nml Right Lumbar Mid Rami Nml Nml Nml Right Lumbar Lower Rami Nml Nml Nml Left Lumbar Upper Rami Nml Nml Nml Left Lumbar Mid Rami Nml Nml Nml Left Lumbar Lower Rami Nml Nml Nml FINDINGS: Right peroneal nerve showed prolonged distal latency, small amplitude and normal conduction velocity. Bilateral tibial nerves showed normal distal latency, small amplitude and normal conduction velocity. Right sural nerve no response. Left sural nerve showed prolonged peak latency. Concentric needle EMG was performed in selected muscles of the bilateral lower extremity and lumbar paraspinals. Study did not reveal signs of electric abnormalities as shown in the table above. No myopathic looking units. IMPRESSION: 1. This is an abnormal study. 2. There is electrodiagnostic evidence for sensorimotor peripheral neuropathy, primarily axonal features, slightly asymmetric. 3. There is no electrodiagnostic evidence for lumbosacral plexopathy or lumbar radiculopathy. Thank you for your kind referral. Shamika iWlson MD, RAMYA Board Certified, [place] Board of Physical Medicine and Rehabilitation (ABPMR) Board Certified, [place] Board of Electrodiagnostic Medicine (ABEM) CODIN [id number] x 2 MTDD
== END 2024-05-17 13:48 | disposition home or self-care (01) ==
LOC: HO.NEURO 13:47
PROVIDERS: PCP Internal Medicine Medical Oncology; Visit Provider Student in an Organized Health Care Education/Training Program
DX: I77.6 Arteritis, unspecified (principal); R20.0 Anesthesia of skin; M79.604 Pain in right leg; M79.605 Pain in left leg
CPT/HCPCS: 95886; 95909

== ENCOUNTER → 2024-05-17 13:49 | Outpatient (BNV) | payer MEDICARE, MEDICAID, SELFPAY | PROVIDERS: PCP Internal Medicine Medical Oncology; Visit Provider Physical Medicine & Rehabilitation | DX: G62.89 Other specified polyneuropathies (principal) | CPT/HCPCS: 95886; 95909 ==

== ENCOUNTER 2024-07-01 15:17 | Outpatient (REF) | payer MEDICARE, MEDICAID, SELFPAY ==
--- OUTSIDE RECORDS SUMMARY | 2024-07-01 15:20 | XMS_ITS ---
Author Organization Balaji Massey III, MD Address [address] [place] [address] [place] [address] Care Team Providers Care Associate Team Physician Name Role Phone Balaji Massey Primary Care Provider LEANN NATION Unavailable [phone] REASON FOR VISIT PA for Nifedipine needed Social History Sex Assigned At : Social History Observation Description Sex Assigned At Female Encounters Encounter Location Date Provider Diagnosis Balaji Massey III, MD [address] [place] [address] [place] [address] 03/27/2024 Balaji Massey Plan Of Treatment Next Appt Details Provider Name:Balaji Massey, 08/26/2024 04:00:00 PM, [address] [place] [address] [place], [place], [id number], Progress Notes * MOIZ SAUNDERS MDOB: 0 (63 yo F)Acc No.[id number]:03/27/2024 Patient:?MOIZ SAUNDERS :1960???Age:63 Y???Sex:Female Address: [address], [place], [address] * true * Date:? Generated for Printi ng/Faxing/eTransmitting on:?07/01/2024 03:19 PM EST
--- OUTSIDE RECORDS SUMMARY | 2024-07-01 15:20 | XMS_ITS | Patient Health Record ---
Author Organization Balaji Massey III, MD Address [address] [place] [facility] [place] [address] Care Team Providers Care Disk Recoater Name Role Phone Balaji Massey Primary Care Provider [phone] [place] [address] Unavailable [phone] Allergies Allergen (clinical drug ingredient) Drug/Non Drug Allergy documented on EMR Reaction Allergy Type Onset Date Status sulfacetamide Sulfacetamide Unknown Drug Allergy Active Results Component Value Reference Range Notes URINE DIP STICK Reviewed date:08/21/2023 04:47:03 PM Interpretation: Performing Lab: Notes/Report: SG 1.010 1.005 - 1.025 pH 5.0 5.0 - 9.0 FRANKY Negative Negative - NIT Negative Negative - PRO 15 Negative - Trace GLU Negative Negative - KET Negative Negative - UBG 0.2 0.1 - 1.8 CHRISTOPHE Negative 0.2 - 1.3 BLD Positive Negative - Menstrating No Free T4 (Free Thyroxine) Reviewed date:09/24/2023 01:30:40 PM Interpretation: Performing Lab:[facility], [address] [place] [phone] Notes/Report: Free T4 (Free Thyroxine) 0.84 0.71-1.85 ng/dL Protein Electrophoresis, Ser um Reviewed date:10/11/2023 04:02:43 PM Interpretation: Performing Lab:[facility], [address] [place] [phone] Notes/Report: Prot Elec - Total Protein 7.1 6.1-8.1 g/dL Prot Elec - Albumin 4.2 3.8-4.8 g/dL Prot Elec - Alpha1 0.4 0.2-0.3 g/dL Prot Elec - Alpha2 0.7 0.5-0.9 g/dL Prot Elec - Beta 1 0.4 0.4-0.6 g/dL Prot Elec - Beta 2 0.4 0.2-0.5 g/dL Prot Elec - Gamma 1.0 0.8-1.7 g/dL PES - Abn Protein Band 1 SEE NOTE NONE DETECTED g/dL See below PES-Abn Protein Band 2 TNP PES-Abn Protein Band 3 TNP Prot Elec - Interpretation SEE NOTE Possible monoclonal protein (M-protein) present. Suggest serum immunofixation. THIS TEST WAS PERFORMED AT: [facility] [address] [place] [phone] MILLA ROSENBAUM MD Cryoglobulin Reviewed date:10/14/2023 07:04:12 PM Interpretation: Performing Lab:[address] [phone] Notes/Report: Cryoglobulin, Qual POSITIVE Cryoglobulin, Ql, Serum: Positive (Abnormal) Reference Interval: None detected This test was developed and its performance characteristics determined by [employer]. It has not been cleared or approved by the Food and Drug Administration. Performing Labs: [address] [address] Dir: Joya Ramirez MD For inquiries, the physician may contact Branch: [phone] Lab: [phone] Cryocrit TNP Rheumatoid Factor Reviewed date:09/24/2023 01:30:40 PM Interpretation: Performing Lab:[facility], [address] [place] [phone] Notes/Report: Rheumatoid Factor < 13.0 <15.0 IU/mL Erythrocyte Sedimentation Ra te Reviewed date:09/24/2023 01:30:40 PM Interpretation: Performing Lab:[address] [phone] Notes/Report: Erythrocyte Sedimentation Rate 38 0-20 MM/HR Patients with polycythemia and many hemoglobin abnormalities may have depressed sed rates whereas patients with anemia may have elevated sed rates. C Reactive Protein Reviewed date:09/24/2023 01:30:40 PM Interpretation: Performing Lab:[address] [phone] Notes/Report: C Reactive Protein 0.65 < or = 0.50 mg/dL Thyroid Stimulating Hormone Reviewed date:09/24/2023 01:30:40 PM Interpretation: Performing Lab:[facility], [address] [place] [phone] Notes/Report: Thyroid Stimulating Hormone 3.58 0.32-4.0 uIU/mL Note: A sustained TSH level above 2.5 uIU/mL may warrant further investigation. TSH 3rd Generation ([facility]) VALENTINE Reflex Titer and Pattern Reviewed date:10/11/2023 04:02:43 PM Interpretation: Performing Lab:[facility], [address] [place] [phone] Notes/Report: Anti Nuclear Antibody Screen POSITIVE NEGATIVE VALENTINE IFA is a first line screen for detecting the presence of up to approximately 150 autoantibodies in various autoimmune diseases. A positive VALENTINE IFA result is suggestive of autoimmune disease and reflexes to titer and pattern. Further laboratory testing may be considered if clinically indicated. For additional information, please refer to http://education.[employer]/faq/IJB668 (This link is being provided for informational/ educational purposes only.) Anti Nuclear Antibody Titer 1:40 A low level VALENTINE titer may be present in pre-clinical autoimmune diseases and normal individuals. Reference Range <1:40 Negative 1:40-1:80 Low Antibody Level >1:80 Elevated Antibody Level VALENTINE Titer 2 TNP VALENTINE Pattern 2 TNP VALENTINE Titer 3 TNP VALENTINE Pattern 3 TNP US arterial duplex LE BI Reviewed date:10/11/2023 04:02:43 PM Interpretation: Performing Lab: Notes/Report: [address] [address] Ultrasound Report Signed Patient: Sidra Saunders MR#: [id number] : 1960 Acct:[id number] Age/Sex: 63 / F ADM Date: 10/02/23 Loc: .US Attending Dr: Balaji Massey MD Ordering Physician: Balaji Massey MD Date of Service: 10/02/23 Procedure(s): US arterial duplex LE BI Accession Number(s): [id number] cc: Balaji Massey MD EXAMINATION: BILATERAL LOWER EXTREMITY DUPLEX CLINICAL INFORMATION: Peripheral vascular disease COMPARISON: Lower extremity arterial exam 07/22/2021 TECHNIQUE: Real-time ultrasound and Doppler techniques (integrating B-mode 2-D vascular images, Doppler spectral analysis and color flow Doppler imaging) were utilized to interrogate the lower extremities. FINDINGS: RIGHT LEG: Common femoral artery: 142 cm/s, biphasic Profunda femoris artery: 36 cm/s, biphasic Superficial femoral artery (proximal): 74 cm/s, biphasic Superficial femoral artery (mid): 75 cm/s, biphasic Superficial femoral artery (distal): 51 cm/s, biphasic Proximal popliteal artery: 39 cm/s, biphasic Posterior tibial artery: 70 cm/s, biphasic LEFT LEG: Common femoral artery: 82 cm/s, biphasic Profunda femoris artery: 55 cm/s, monophasic Superficial femoral artery (proximal): 89 cm/s, biphasic Superficial femoral artery (mid): 68 cm/s, biphasic Superficial femoral artery (distal): 72 cm/s, biphasic Popliteal artery: 61 cm/s, biphasic Posterior tibial artery: 62 cm/s, biphasic US/US arterial duplex LE BI IMPRESSION: Plaque in the right common femoral artery causing mild stenosis by velocity criteria. Dictated By: Kendrick Ramachandran MD Signed By: <Electronically signed by Kendrick Ramachandran MD in OV> 10/03/23 1411 DD/ 1419 TD/TT: Publication Editor: [place] [address] Ultrasound Report Signed Patient: Esther Saunders MR#: [id number] : 1960 Acct:[id number] Age/Sex: 63 / F ADM Date: 10/02/23 Loc: . Attending Dr: Balaji Massey MD Ordering Physician: Balaji Massey MD Date of Service: 10/02/23 Procedure(s): US arterial duplex LE BI Accession Number(s): [id number] cc: Balaji Massey MD EXAMINATION: BILATERAL LOWER EXTREMITY DUPLEX CLINICAL INFORMATION: Peripheral vascular disease COMPARISON: Lower extremity arterial exam 07/22/2021 TECHNIQUE: Real-time ultrasound and Doppler techniques (integrating B-mode 2-D vascular images, Doppler spectral analysis and color flow Doppler imaging) were utiliz ed to interrogate the lower extremities. FINDINGS: RIGHT LEG: Common femoral arter y: 142 cm/s, biphasic Profunda femoris artery: 36 cm/s, biphasic Superficial femoral artery (proximal): 74 cm/s, biphasic Superficial femoral artery (mid): 75 cm/s, biphasic Superficial femoral artery (distal): 51 cm/s, biphasic Proximal popliteal artery: 39 cm/s, biphasic Posterior tibial artery: 70 cm/s, biphasic LEFT LEG: Common femoral arter y: 82 cm/s, biphasic Profunda femoris artery: 55 cm/s, monophasic Superficial femoral artery (proximal): 89 cm/s, biphasic Superficial femoral artery (mid): 68 cm/s, biphasic Superficial femoral artery (distal): 72 cm/s, biphasic Popliteal artery: 61 cm/s, biphasic Posterior tibial artery: 62 cm/s, biphasic US/US arterial duplex LE BI IMPRESSION: Plaque in the right common femoral artery causing mild stenosis by velocity criteria. Dictated By: Kendrick Ramachandran MD Signed By: <Electronically signed by Kendrick Ramachandran MD in OV> 10/03/23 1411 DD/ 1419 TD/TT: Publication Editor: Complete Blood Count Auto Di ff Reviewed date:12/24/2023 07:19:00 PM Interpretation: Performing Lab:[facility], [address] [place] [phone] Notes/Report: White Blood Count 2.2 4.8-10.8 X10*3/uL Red Blood Count 4.36 4.20-5.50 X10*6/uL Hemoglobin 14.1 12.0-16.0 g/dl Hematocrit 38.8 37.0-47.0 % Mean Corpuscular Volume 89.0 80.0-98.0 fL Mean Corpuscular Hemoglobin 32.3 27.0-33.0 pg Mean Corpuscular HGB Conc 36.3 31.0-35.0 g/dl Red Cell Distribution Width 12.3 11.0-16.0 % Platelet Count 98 160-400 X10*3/uL Mean Platelet Volume 11.5 9.4-12.3 fL Neutrophils Percent Auto 47.8 45-73 % Imm Gran Pct Auto 0.5 0.0-0.4 % Lymphocytes Percent Auto 37.8 20-40 % Monocytes Percent Auto 12.9 2-11 % Eosinophils Percent Auto 0.5 0-4 % Basophils Percent Auto 0.5 0-2 % NRBC Pct Auto 0.0 0.0-0.2 /100WBC Neutrophils Absolute Auto 1.0 2.0-8.3 x10*3/uL Imm Gran Abs Auto 0.01 0.00-0.03 X10*3/uL Lymphocytes Absolute Auto 0.8 1.2-4.9 X10*3/uL Monocytes Absolute Auto 0.3 0.1-1.2 X10*3/uL Eosinophils Absolute Auto 0.0 0.0-0.4 X10*3/uL Basophils Absolute Auto 0.0 0.0-0.2 X10*3/uL NRBC Abs Auto 0.000 0.0-0.012 X10*3/uL CORRECTED REPORT Pathologist Review - CBC Reviewed date:12/24/2023 07:19:00 PM Interpretation: Performing Lab:[facility], [address] [place] [phone] Notes/Report: Pathologist Review - CBC SEE NOTE White blood cells are decreased in number, a few lymphocytes with viral changes are present. Platelets are reduced in number; rare large and giant forms are identified. - Efrem Valdes M.D. Pathology Comprehensive Met. Panel Reviewed date:12/24/2023 07:19:00 PM Interpretation: Performing Lab:[address] [phone] Notes/Report: Sodium 136 135-145 mmol/L Potassium 3.4 3.3-5.1 mmol/L Chloride 104 96-108 mmol/L Carbon Dioxide 23 22-29 mmol/L Anion Gap 12 12-20 Blood Urea Nitrogen 10 9-16 mg/dL Creatinine 1.19 0.5-1.4 mg/dL Creatinine Clr Calc Pharmacy 47.0 Provided height and weight: 170.18 cm, 72.575 kg. eGFR (calculated from the MDRD study equation) and eCrCl (calculated from the Cockcroft-Gault equation) are based on different parameters and may not yield comparable results. If eCrCl result is absurd, please check patient's height/weight. Estimated Glomerular Filt Rate 46 NOTE: For -[place] individuals, multiply the result by 1.210. Chronic Kidney Disease: Estimated GFR < 60 mL/min/1.73m2 Severe Kidney Disease: Estimated GFR < 15 mL/min/1.73m2 Glucose Random 100 60-115 mg/dL Calcium 9.3 8.4-10.2 mg/dL Bilirubin Total 0.3 0.0-1.0 mg/dL Aspartate Amino Transferase 132 5-31 U/L Alanine Aminotransferase 91 0-31 U/L Total Protein 7.1 6.5-8.0 g/dL Albumin Level 3.9 3.5-5.0 g/dL Alkaline Phosphatase 141 39-117 U/L SLIDE REVIEW Reviewed date:12/24/2023 07:19:00 PM Interpretation: Performing Lab:[address] [phone] Notes/Report: SLIDE REVIEW VERIFIED SARS-CoV2/FLU/RSV Reviewed date:12/24/2023 07:19:00 PM Interpretation: Performing Lab:[facility], [address] [place] [phone] Notes/Report: Influenza A PCR POSITIVE Negative Influenza B PCR NEGATIVE Negative Resp Syncy Virus RNA Qual PCR NEGATIVE Negative SARS COV2 PCR INHOUSE NEGATIVE Negative All test results must be correlated with clinical findings. Negative results do not preclude SARS-CoV2, influenza A virus, influenza B virus and/or RSV infection and should not be used as the sole basis for treatment or other patient management decisions. Negative results must be combined with clinical observations, patient history, and epidemiological information. This test has not been evaluated for monitoring treatment of infection. This test has been authorized by the FDA under an Emergency Use Authorization (EUA) for use by authorized laboratories. Testing performed on the [employer] GeneXpert utilizing real-time RT-PCR. All SARS CoV2 and positive influenza A/B results are reported to [facility]. UA ClnCatch+Micro w/rflx Cul t Reviewed date:12/24/2023 07:19:00 PM Interpretation: Performing Lab:[address] [phone] Notes/Report: Urine, Clean Catch Color Urine Dark Yellow Appearance Urine Clear PH 6.0 5.0-9.0 Glucose Urine UA Negative Negative mg/dL Urine Blood Negative Negative Specific [place] - Urine 1.025 1.005-1.025 Urine Protein 30 (1+) Neg-Trace mg/dL Urine Ketones 15 Negative mg/dL Nitrite Urine Negative Negative Leukocyte Esterase Urine Negative Negative RBC Urine 3-5 0-2 /HPF WBC Urine 0-5 0-5 /HPF Squamous Epithelial Cell Urine 3-5 0-2 /HPF Bacteria Urine None Seen None Seen Hyaline Casts Urine 3-5 0-2 /LPF US venous duplex LE BI Reviewed date:12/24/2023 07:19:00 PM Interpretation: Performing Lab: Notes/Report: [address] [address] Ultrasound Report Signed Patient: Sidra Saunders MR#: [id number] : 1960 Acct:[id number] Age/Sex: 63 / F ADM Date: 12/20/23 Loc: .ED Attending Dr: Ordering Physician: Josue Rasmussen Date of Service: 12/20/23 Procedure(s): US venous duplex LE BI Accession Number(s): [id number] cc: Balaji Massey MD; Josue Rasmussen EXAMINATION: US VENOUS ULTRASOUND WITH DOPPLER LOWER EXTREMITY, BILATERAL CLINICAL INFORMATION: Pain COMPARISON: None available. TECHNIQUE: Ultrasound of the deep veins is performed from the hip to the calf with compression sonography and color and pulse Doppler assessment. Spectral analysis with color-flow imaging is performed. FINDINGS: RIGHT: There is normal venous compression and respiratory variation and augmented flow. The visualized common femoral vein, superficial femoral vein, profunda femoral vein, popliteal vein, and the trifurcation region shows no evidence of deep venous thrombosis. There is no significant popliteal fossa cyst. LEFT: There is normal venous compression and respiratory variation and augmented flow. The visualized common femoral vein, superficial femoral vein, profunda femoral vein, popliteal vein, and the trifurcation region shows no evidence of deep venous thrombosis. There is no significant popliteal fossa cyst. US/US venous duplex LE BI IMPRESSION: No DVT demonstrated in the bilateral lower extremity. Dictated By: Katelynn Avila MD Signed By: <Electronically signed by Katelynn Avila MD in OV> 12/20/231925 DD/ 41 TD/TT: Publication Editor: FADI [address] [address] Ultrasound Report Signed Patient: Esther Saunders MR#: [id number] : 1960 Acct:[id number] Age/Sex: 63 / F ADM Date: 12/20/23 Loc: HO.ED Attending Dr: Ordering Physician: Josue Rasmussen Date of Service: 12/20/23 Procedure(s): US venous duplex LE BI Accession Number(s): [id number] cc: Balaji Massey MD; Josue Rasmussen EXAMINATION: US VENOUS ULTRASOUND WITH DOPPLER LOWER EXTREMITY, BILATERAL CLINICAL INFORMATION: Pain COMPARISON: None available. TECHNIQUE: Ultrasound of the de ep veins is performed from the hip to the calf with compression sonograp hy and color and pulse Doppler assessment. Spectral analysis with color-flow imaging is performed. FINDINGS: RIGHT: There is normal veno us compression and respiratory variation and augmented flow. The visualized common femoral vein, superficial femoral vein, profunda femor al vein, popliteal vein, and the trifurcation region shows no evidence of deep venous thrombosis. There is no significant poplitea l fossa cyst. LEFT: There is normal veno us compression and respiratory variation and augmented flow. The visualized common femoral vein, superficial femoral vein, profunda femor al vein, popliteal vein, and the trifurcation region shows no evidence of deep venous thrombosis. There is no significant poplitea l fossa cyst. US/US venous duplex LE BI IMPRESSION: No DVT demonstrated in the bilateral lower extremity. Dictated By: Katelynn Avila MD Signed By: <Electronically signed by Katelynn Avila MD in OV> 12/20/231925 DD/ 41 TD/TT: Publication Editor: FADI HERNANDEZ chest 2V Reviewed date:12/24/2023 07:19:00 PM Interpretation: Performing Lab: Notes/Report: [address] [address] XRay Report Signed Patient: Sidra Saunders MR#: [id number] : 1960 Acct:[id number] Age/Sex: 63 / F ADM Date: 12/20/23 Loc: HO.ED Attending Dr: Ordering Physician: Nandini Lane NP Date of Service: 12/20/23 Procedure(s): XR chest 2V Accession Number(s): [id number] cc: Balaji Massey MD; Nandini Lane NP EXAMINATION: XR CHEST CLINICAL INFORMATION: Cough nausea vomiting COMPARISON: CT chest from 03/26/2015 TECHNIQUE: 2 views of the chest were obtained. FINDINGS: Hyperinflation bilateral lung villalpando. No pneumothorax. Trachea is midline. Cardiac mediastinal silhouette is not enlarged. No large pleural effusion. Osseous structures are intact. Soft tissues are unremarkable. XR/XR chest 2V IMPRESSION: No acute cardiopulmonary process. Dictated By: Rj Pena MD Signed By: <Electronically signed by Rj Pena MD in OV> 12/20/23 1855 DD/ 1806 TD/TT: Publication Editor: [address] [address] XRay Report Signed Patient: Esther Saunders MR#: [id number] : 1960 Acct:[id number] Age/Sex: 63 / F ADM Date: 12/20/23 Loc: .ED Attending Dr: Ordering Physician: Nandini Lane NP Date of Service: 12/20/23 Procedure(s): XR jennifer st 2V Accession Number(s): [id number] cc: Balaji Massey MD; Nandini Lane NP EXAMINATION: XR CHEST CLINICAL INFORMATION: Cough nausea vomiting COMPARISON: CT chest from 03/26/2015 TECHNIQUE: 2 views of the chest were obtained. FINDINGS: Hyperinflation bilateral lung villalpando. No pneumothorax. Trachea is midline. Cardiac mediastinal silhouette is not enlarged. No large pleural effusion. Osseous structures are intact. Soft tissues are unremarkable. XR/XR chest 2V IMPRESSION: No acute cardiopulmonary process. Dictated By: Rj Pena MD Signed By: <Electronically signed by Rj Pena MD in OV> 12/20/23 1855 DD/ 1806 TD/TT: Publication Editor: XR wrist LT 2V Reviewed date:03/14/2024 12:30:01 PM Interpretation: Performing Lab: Notes/Report: [address] [address] XRay Report Signed Patient: Sidra Saunders MR#: [id number] : 1960 Acct:[id number] Age/Sex: 63 / F ADM Date: 03/13/24 Loc: HO.ED Attending Dr: Ordering Physician: Generic ED Physician Date of Service: 03/13/24 Procedure(s): XR wrist LT 2V Accession Number(s): [id number] cc: Balaji Massey MD; Generic ED Physician EXAMINATION: XR WRIST, LEFT CLINICAL INFORMATION: Fall. COMPARISON: None TECHNIQUE: PA, lateral, oblique, and scaphoid views of the left wrist. FINDINGS: Bones are osteopenic. Soft tissues are swollen. No fracture or malalignment. Joint spaces are well preserved. Carpal alignment appears appropriate. No erosions. XR/XR wrist LT 2V IMPRESSION: Soft tissue swelling. No acute fracture or malalignment. Electronically signed by: Landon Gomez MD 03/14/2024 12:03 AM EDT Dictated By: Landon Gomez MD Signed By: <Electronically signed by Landon Gomez MD in OV> 03/14/24 0003 DD/ 2310 TD/TT: 03/13/24 2320 Publication Editor: RUFINA [address] [address] XRay Report Signed Patient: Esther Saunders MR#: [id number] : 1960 Acct:[id number] Age/Sex: 63 / F ADM Date: 03/13/24 Loc: .ED Attending Dr: Ordering Physician: Generic ED Physician Date of Service: 03/13/24 Procedure(s): XR wri st LT 2V Accession Number(s): [id number] cc: Balaji Massey MD; Generic ED Physician EXAMINATION: XR WRIST, LEFT CLINICAL INFORMATION: Fall. COMPARISON: None TECHNIQUE: PA, lateral, oblique , and scaphoid views of the left wrist. FINDINGS: Bones are osteopenic . Soft tissues are swollen. No fracture or malalignment. Joint spaces are well preserved. Carpal alignment appears appropriate. No erosions. XR/XR wrist LT 2V IMPRESSION: Soft tissue swelling . No acute fracture or malalignment. Electronically clarisse d by: Landon Gomez MD 03/14/2024 12:03 AM EDT Dictated By: Landon Gomez MD Signed By: <Electronically signed by Landon Gomez MD in OV> 03/14/24 0003 DD/ 09 TD/TT: 03/13/242319 Publication Editor: RUFINA Complete Blood Count Auto Di ff Reviewed date:03/20/2024 09:03:44 AM Interpretation: Performing Lab:[facility], [address] [place] [phone] Notes/Report: White Blood Count 6.1 4.8-10.8 X10*3/uL Red Blood Count 4.09 4.20-5.50 X10*6/uL Hemoglobin 13.6 12.0-16.0 g/dl Hematocrit 39.0 37.0-47.0 % Mean Corpuscular Volume 95.4 80.0-98.0 fL Mean Corpuscular Hemoglobin 33.3 27.0-33.0 pg Mean Corpuscular HGB Conc 34.9 31.0-35.0 g/dl Red Cell Distribution Width 13.3 11.0-16.0 % Platelet Count 206 160-400 X10*3/uL Mean Platelet Volume 10.6 9.4-12.3 fL Neutrophils Percent Auto 63.2 45-73 % Imm Gran Pct Auto 0.3 0.0-0.4 % Lymphocytes Percent Auto 24.3 20-40 % Monocytes Percent Auto 8.2 2-11 % Eosinophils Percent Auto 3.3 0-4 % Basophils Percent Auto 0.7 0-2 % NRBC Pct Auto 0.0 0.0-0.2 /100WBC Neutrophils Absolute Auto 3.9 2.0-8.3 x10*3/uL Imm Gran Abs Auto 0.02 0.00-0.03 X10*3/uL Lymphocytes Absolute Auto 1.5 1.2-4.9 X10*3/uL Monocytes Absolute Auto 0.5 0.1-1.2 X10*3/uL Eosinophils Absolute Auto 0.2 0.0-0.4 X10*3/uL Basophils Absolute Auto 0.0 0.0-0.2 X10*3/uL NRBC Abs Auto 0.000 0.0-0.012 X10*3/uL Comprehensive [place]. Panel Fa st Reviewed date:03/20/2024 09:03:44 AM Interpretation: Performing Lab:[facility], [address] [place] [phone] Notes/Report: Sodium 141 135-145 mmol/L Potassium 5.3 3.3-5.1 mmol/L Chloride 109 96-108 mmol/L Carbon Dioxide 27 22-29 mmol/L Anion Gap 10 12-20 Blood Urea Nitrogen 16 9-16 mg/dL Creatinine 0.97 0.5-1.4 mg/dL Estimated Glomerular Filt Rate 58 NOTE: For -[place] individuals, multiply the result by 1.210. Chronic Kidney Disease: Estimated GFR < 60 mL/min/1.73m2 Severe Kidney Disease: Estimated GFR < 15 mL/min/1.73m2 Glucose Fasting 93 60-99 mg/dL Calcium 9.7 8.4-10.2 mg/dL Bilirubin Total 0.3 0.0-1.0 mg/dL Aspartate Amino Transferase 12 5-31 U/L Alanine Aminotransferase 8 0-31 U/L Total Protein 7.1 6.5-8.0 g/dL Albumin Level 4.0 3.5-5.0 g/dL Alkaline Phosphatase 81 39-117 U/L Lipid Panel Reviewed date:03/20/2024 09:03:44 AM Interpretation: Performing Lab:[facility], [address] [place] [phone] Notes/Report: Triglycerides 174 <150 mg/dL Desirable Triglyceride: less than 150 mg/dL Borderline High Triglyceride 150-199 mg/dL High Triglyceride: 200-499 mg/dL Very High Triglyceride: greater than or equal to 5OO mg/dL Cholesterol 271 <200 mg/dL Desirable Cholesterol: less than 200 mg/dL Borderline High Cholesterol: 200-239 mg/dL High Cholesterol: greater than 239 mg/dL LDL Cholesterol Calculated 203 <100 mg/dL Desirable LDL: less than 100 mg/dL Near Optimal/Above Optimal LDL: 110-129 mg/dL Borderline High LDL: 130-159 mg/dL High LDL: 160-189 mg/dL Very High LDL: greater than or equal to 190 mg/dL HDL Cholesterol 34 >40 mg/dL Desirable HDL: greater than 40 mg/dL Note: This HDL assay may give artificially low results in patients with liver disease. Erythrocyte Sedimentation Ra te Reviewed date:04/29/2024 07:19:11 AM Interpretation: Performing Lab:[facility], [address] [place] [phone] Notes/Report: Erythrocyte Sedimentation Rate 30 0-20 MM/HR Patients with polycythemia and many hemoglobin abnormalities may have depressed sed rates whereas patients with anemia may have elevated sed rates. Lupus Anticoagulant Panel Reviewed date:05/20/2024 05:48:38 AM Interpretation: Performing Lab:[facility], [address] [place] [phone] Notes/Report: Lupus Interpretation see note A Lupus Anticoagulant is not detected. Common causes for a prolonged screen and negative confirmatory test include factor deficiencies or anticoagulant therapy. Reference Range: Not Detected For additional information, please refer to http://education.[employer]/faq/FAQ01v 2 (This link is being provided for informational/ educational purposes only.) This interpretation is based on the following test results. PTT (LAC) Screen 59 <=40 sec DRVVT Screen 47 <=45 sec DRVVT Confirmation Negative Negative THIS TEST WAS PERFORMED AT: [facility]/[address] [address] ALE KHALIL MD,PHD DRVVT 1:1 Mix TNP DRVVT 1:1 Mix Interpretation TNP Hexagonal Phase Neutralization Negative Negative Thrombin Clotting Time TNP C Reactive Protein Reviewed date:04/29/2024 07:19:11 AM Interpretation: Performing Lab:[facility], [address] [place] [id number] Notes/Report: C Reactive Protein 0.14 < or = 0.50 mg/dL Cardiolipin Antibodies Reviewed date:04/29/2024 07:19:11 AM Interpretation: Performing Lab:[facility], [address] [place] [phone] Notes/Report: Cardiolipin IgG Ab 5.6 Value Interpretation ----- < 20.0 Antibody not detected > or = 20.0 Antibody detected Cardiolipin IgM Ab >112.0 Value Interpretation ----- < 20.0 Antibody not detected > or = 20.0 Antibody detected The antiphospholipid antibody syndrome (APS) is a clinical-pathologic correlation that includes a clinical event (e.g. arterial or venous thrombosis, morbidity) and persistent positive antiphospholipid antibodies (IgM, IgG Cardiolipin or b2GPI antibodies greater than the 99th percentile; or a lupus anticoagulant). International consensus guidelines for APS suggest waiting at least 12 weeks before retesting to confirm antibody persistence. The Systemic Lupus International [facility] immunological classification criteria for systemic lupus erythematosus (SLE) include testing for isotype IgA, which has yet to be incorporated into APS criteria. Low level antiphospholipid antibodies may sometimes be detected in the setting of infection, drug therapy or aging. For additional information, please refer to http://education.[employer]/faq/VQM751 (This link is being provided for informational/ educational purposes only.) THIS TEST WAS PERFORMED AT: [facility] [address] [place] [phone] MILLA ROSENBAUM MD Beta-2 Glycoprotein Antibody Reviewed date:04/29/2024 07:19:11 AM Interpretation: Performing Lab:[facility], [address] [place] [id number] Notes/Report: Beta-2 Glycoprotein IgG 5.3 <20.0 U/mL Value Interpretation ----- < 20.0 Antibody not detected > or = 20.0 Antibody detected Beta-2 Glycoprotein IgM >112.0 <20.0 U/mL Value Interpretation ----- < 20.0 Antibody not detected > or = 20.0 Antibody detected Beta-2 Glycoprotein IgA <2.0 <20.0 U/mL Value Interpretation ----- < 20.0 Antibody not detected > or = 20.0 Antibody detected The antiphospholipid antibody syndrome (APS) is a clinical-pathologic correlation that includes a clinical event (e.g. arterial or venous thrombosis, morbidity) and persistent positive antiphospholipid antibodies (IgM, IgG Cardiolipin or b2GPI antibodies greater than the 99th percentile; or a lupus anticoagulant). International consensus guidelines for APS suggest waiting at least 12 weeks before retesting to confirm antibody persistence. The Systemic Lupus [facility] immunological classification criteria for systemic lupus erythematosus (SLE) include testing for isotype IgA, which has yet to be incorporated into APS criteria. Low level antiphospholipid antibodies may sometimes be detected in the setting of infection, drug therapy or aging. For additional information, please refer to http://education.[employer]/faq/EQR192 (This link is being provided for informational/ educational purposes only.) THIS TEST WAS PERFORMED AT: [facility] [address] [place] [address] ALE KHALIL MD,PHD Cryoglobulin Reviewed date:05/20/2024 05:48:38 AM Interpretation: Performing Lab:[address] [phone] Notes/Report: Cryoglobulin, Qual Negative Negative The Cryocrit is primarily intended for following a patient with previously defined and quantitated cryoglobulins. The cryocrit may consist of cryoglobulins, fibrins, complement, or mixtures of these. THIS TEST WAS PERFORMED AT: [facility] [address] [place] [address] ALE KHALIL MD,PHD Cryocrit TNP VALENTINE Reflex Titer and Pattern Reviewed date:04/29/2024 07:19:11 AM Interpretation: Performing Lab:[address] [phone] Notes/Report: Anti Nuclear Antibody Screen NEGATIVE NEGATIVE VALENTINE IFA is a first line screen for detecting the presence of up to approximately 150 autoantibodies in various autoimmune diseases. A negative VALENTINE IFA result suggests an VALENTINE-associated autoimmune disease is not present at this time, but is not definitive. If there is high clinical suspicion for Sjogren's syndrome, testing for anti-SS-A/Ro antibody should be considered. Anti-Jamila-1 antibody should be considered for clinically suspected inflammatory myopathies. AC-0: Negative International Consensus on VALENTINE Patterns (https://doi.org/10.1515 /eryf-6752-8829) For additional information, please refer to http://education.[employer]/faq/CLQ674 (This link is being provided for informational/ educational purposes only.) THIS TEST WAS PERFORMED AT: [facility] [address] [place] [phone] MILLA ROSENBAUM MD Anti Nuclear Antibody Titer TNP Anti Nuclear Antibody Pattern TNP VALENTINE Titer 2 TNP VALENTINE Pattern 2 TNP VALENTINE Titer 3 TNP VALENTINE Pattern 3 TNP ANCA Vasculitides Reviewed date:04/29/2024 07:19:11 AM Interpretation: Performing Lab:[facility], [address] [place] [phone] Notes/Report: Myeloperoxidase Antibody <1.0 Value Interpretation ----- <1.0 No Antibody Detected > or = 1.0 Antibody Detected Autoantibodies to myeloperoxidase (MPO) are commonly associated with the following small-vessel vasculitides: microscopic polyangiitis, polyarteritis nodosa, Churg-Bryan syndrome, necrotizing and crescentic glomerulonephritis and occasionally granulomatosis with polyangiitis (GPA, Irene's). The perinuclear IFA pattern, (p-ANCA) is based largely on autoantibody to myeloperoxidase which serves as the primary antigen. These autoantibodies are present in active disease. Proteinase 3 PR3 Antibodies <1.0 Value Interpretation ----- <1.0 No Antibody Detected > or = 1.0 Antibody Detected Autoantibodies to proteinase-3 (NH-3) are accepted as characteristic for granulomatosis with polyangiitis (GPA, Irene's), and are detectable in 95% of the histologically proven cases. The cytoplasmic IFA pattern, (c-ANCA), is based largely on autoantibody to NH-3 which serves as the primary antigen. These autoantibodies are present in active disease. THIS TEST WAS PERFORMED AT: [facility] [address] [place] [phone] MILLA ROSENBAUM MD Rheumatoid Factor Reviewed date:04/29/2024 07:19:11 AM Interpretation: Performing Lab:[facility], [address] [place] [phone] Notes/Report: Rheumatoid Factor < 13.0 <15.0 IU/mL Reason For Referral Reason 3rd toe each foot cy anotic eval and treatment ?PVD or Raynaud disease Diagnosis 1 PVD (peripheral vasc ular disease) (I73.9) Diagnosis 2 Raynaud's disease wi thout gangrene (I73.00) Diagnosis 3 Blue toes (R23.0) Referral Organization Balaji Massey III, MD Referring Provider First Name Balaji Referring Provider Last Name Massey Referring Provider Speciality Internal edicine Referred Organization [facility] Referred Provider Carlos Camejo Referred Address [address] [place] [id number], Referred Provider Specialty Vascular [place] General Notes Zuleima Hough CMA 12/2023 09:34:55 AM EST > Per Dr Massey called Dr Camejo office spoke to Ada she will check with Jodie to see when Dr Camejo can see the patient . Dr Camejo office to call us back with appt , Zuleima Hough CMA 08/22/2023 09:58:06 AM EST > Progress note/ ref/demo faxed to Dr Camejo office today they stated Dr Camejo is away for a few week they gave pt appt for 09/19/2023 at 9:30am and pt called and made aware of this appt Referral Priority Routine Referral Appointment Date 09/19/2023 Reason Consult and Treat U rgent Visit Request Raynauds syndrome all toes Diagnosis 1 Raynaud's syndrome ( I73.00) Referral Organization Balaji Massey III, MD Referring Provider First Name Balaji Referring Provider Last Name Massey Referring Provider Speciality Internal M edicine Referred Provider [facility] Referred Provider Specialty Rheumatology General Notes Nafisa Shepard 2023 10:55:24 AM EDT > Faxed referral, progress note and demos., Drea,Nafisa 09/26/2023 02:15:11 PM EDT > Doctor denied patients referral. Stated patient wouldnt be seen in office. Due to history does not show it is Raynauds Disease and does not believe it is Raynauds Disease. Referral Priority Routine Reason Appointment requeste d to be with Dr. Lockett Consult and Treat Questioning Raynauds disease Diagnosis 1 Raynaud's disease wi thout gangrene (I73.00) Referral Organization Baljai Massey III, MD Referring Provider First Name Balaji Referring Provider Last Name Bryson Referring Provider Speciality Internal edicine Referred Provider [facility] Referred Provider Specialty Rheumatology General Notes Nafisa Shepard 2023 01:32:11 PM EDT > Referral Faxed Referral Priority Routine Referral Appointment Date 02/21/2024 Reason Consult and Treat Questioning Raynaud's Disease Diagnosis 1 Raynaud's disease wi thout gangrene (I73.00) Referral Organization Balaji Massey III, MD Referring Provider First Name Balaji Referring Provider Last Name Bryson Referring Provider Speciality Internal edicine Referred Provider [facility] Referred Provider Specialty Rheumatology General Notes Nafisa Shepard 2023 02:57:01 PM EDT > referral with daryl arizmendi notes faxed to office. Referral Priority Routine Referral Appointment Date 04/23/2024 Medications Medication SIG (Take, Route, Frequency, Duration) Notes Start Date End Date Status NIFEdipine 10 MG 1 capsule Orally toribio 03/25/2024 Active Escitalopram Oxalate 10 MG 1 tablet Oral ly Once a day 05/23/2023 Active NIFEdipine 10 MG 1 capsule as needed Orally every 8 hrs Active Ondansetron HCl 8 MG 1 tablet as needed Orally every 6 hours 12/18/2023 Active FeroSul 325 (65 Fe) MG TAKE 1 TABLET BY MOUTH EVERY DAY for 30 Active Nitroglycerin 2 % apply to all ten toe s Transdermal twice a day 09/25/2023 Active Escitalopram Oxalate 20 MG 1 tablet Oral ly Once a day 03/25/2024 Active Gabapentin 300 MG 1 capsule Orally thr ee times a day 08/21/2023 Active Verapamil HCl ER 240 MG TAKE 1 TABLET BY MOUTH EVERY DAY Diagnosis Unavailable Oral Active Linzess 145 MCG Oral Acti ve Social History Tobacco Use: Social History Observation Description Date Details (start date - stop date) Current Smoker NA - NA Sex Assigned At : Social History Observation Description Sex Assigned At Female Tobacco Use/Smoking Question Answer Notes Patient is a current smoker How often do you smoke cigarettes? every day How many cigarettes a day do you smoke? 6-10 How soon after you wake up d o you smoke your first cigarette? 6-30 minutes Are you interested in quitting? Not ready to isaac t Additional Findings: Tobacco User Modera te cigarette smoker (10-19 cigs/day) Alcohol Screen Question Answer Notes Did you have a drink containing alcohol in the p ast year? No Points 0 Interpretation Negative Problems Problem Type SNOMED Code ICD Code Onset Dates Problem Status W/U Status Risk Notes Problem 63409526 Idiopathic peripheral neuropathy (G60.9) Active confirmed She agreed to t he trial of gabapentin. She will await the final diagnosis from the neurologist. Problem 23758480 Tobacco dependence (F17.200) Active confirmed I strongly recommended smoking cessation. I offered to refer to this smoking cessation program at [facility] or the [facility]. She will consider this. I made her aware of the health consequences of continued smoking. Problem 058741791 Urinary incontinence (R32) Active confirmed There is been n o change in the pattern or urinary incontinence. Since her last visit.She is 5. She has been referred to a urologist for evaluation and treatment. Problem Cataract (260426857) Cataract (H26.9) Active confirmed Problem 17535697 PTSD (post-traumatic stress disorder) (F43.10) Active confirmed Emotionally she says she is stable at this time. She is conducting all of the activities of daily life normally. Problem Hyperlipidaemia (97176392) Hyperlipidemia, unspecified hyperlipidemia type (E78.5) Active confirmed Her previous total cholesterol levels were 258 and 209. Her current values 271. She is not sure if she was fasting. This will be repeated after a straight 12 hour fast and decisions made about the necessity of treatment in the near future. Problem 796618150 Colon cancer (C18.9) Active confirmed There was no si gn of recurrent disease or new primary on today's examination. Problem 296883160 Major depressive disorder (F32.9) Active confirmed Her depression is stable and mild to moderate. She is compliant with her therapy. 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 Problem 248246082 Scoliosis of lumbar spine (M41.9) Active confirmed She has occasional mild back pain but none today. No change in her regimen was needed. Problem 586824604040520 History of bulimia (Z86.59) Active confirmed She denies any recurrence of bulimia. She has lost 15 pounds, she says, through diet and exercise. Problem 823320961 Renal cysts, acquired, bilateral (N28.1) Active confirmed These appear to be simple renal cyst on the ultrasound and will be followed. 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 She reports that her feet are no longer purple now that the weather is warm. She has begun a trial of nifedipine with cold weather coming. Vital Signs Heart Rate 72 /min 03/25/2024 Temperature 98.0 degrees Fahrenheit 03/25/2024 Blood pressure diastolic 58 mm Hg 03/25/2024 Height 66 in 03/25/2024 Blood pressure systolic 106 mm Hg 03/25/2024 Weight 158 lbs 03/25/2024 BMI 25.5 kg/m2 03/25/2024 Encounters Encounter Location Date Provider Diagnosis Balaji Massey III, MD [address] [place] [address] [place] [id number] 08/21/2023 Balaji Massey Major depressive disorder F32.9 ; PVD (peripheral vascular disease) I73.9 ; Scoliosis of lumbar spine M41.9 ; Urinary incontinence R32 ; PTSD (post-traumatic stress disorder) F43.10 ; Colon cancer C18.9 ; Renal cysts, acquired, bilateral N28.1 ; Adnexal mass N94.9 ; Tobacco dependence F17.200 and Hyperlipidemia, unspecified hyperlipidemia type E78.5 Balaji Massey III, MD [address] [place] [address] [place] [id number] 09/06/2023 Balaji Massey Major depressive disorder F32.9 ; Scoliosis of lumbar spine M41.9 ; Urinary incontinence R32 ; PTSD (post-traumatic stress disorder) F43.10 ; Tobacco dependence F17.200 ; Hyperlipidemia, unspecified hyperlipidemia type E78.5 ; Raynaud's disease without gangrene I73.00 and PVD (peripheral vascular disease) I73.9 Balaji Massey III, MD [address] [place] [address] [place] [id number] 09/20/2023 Balaji Massey Major depressive disorder F32.9 ; History of smoking Z87.891 ; Scoliosis of lumbar spine M41.9 ; Urinary incontinence R32 ; PTSD (post-traumatic stress disorder) F43.10 ; Colon cancer C18.9 ; Hyperlipidemia, unspecified hyperlipidemia type E78.5 ; Tobacco dependence F17.200 ; Hypothyroidism, unspecified E03.9 and Raynaud's disease without gangrene I73.00 Balaji Massey III, MD [address] [place] [address] [place] [id number] 09/22/2023 Balaji Massey Major depressive disorder F32.9 ; Hyperlipidemia, unspecified hyperlipidemia type E78.5 ; Iron deficiency E61.1 ; Raynaud's disease without gangrene I73.00 ; Scoliosis of lumbar spine M41.9 ; Colon cancer C18.9 ; Tobacco dependence F17.200 and Idiopathic peripheral neuropathy G60.9 Balaji Massey III, MD [address] [place] [address] [place] [id number] 10/11/2023 Balaji Massey Major depressive disorder F32.9 ; Chest pain R07.9 ; Scoliosis of lumbar spine M41.9 ; Urinary incontinence R32 ; PTSD (post-traumatic stress disorder) F43.10 ; Tobacco dependence F17.200 ; Idiopathic peripheral neuropathy G60.9 and Raynaud's disease without gangrene I73.00 Balaji Massey III, MD [address] [place] [address] [place] [id number] 12/18/2023 Balaji Massey Major depressive disorder F32.9 ; Scoliosis of lumbar spine M41.9 ; Urinary incontinence R32 ; Tobacco dependence F17.200 ; Idiopathic peripheral neuropathy G60.9 ; Raynaud's disease without gangrene I73.00 and Viral syndrome B34.9 Balaji Massey III, MD [address] [place] [address] [place] [id number] 01/30/2024 Balaji Massey Hyperlipidemia, unspecified hyperlipidemia type E78.5 ; Major depressive disorder F32.9 ; Colon cancer C18.9 and Raynaud's disease without gangrene I73.00 Balaji Massey III, MD [address] [place] [address] [place] [id number] 03/25/2024 Balaji Massey Hyperlipidemia, unspecified hyperlipidemia type E78.5 ; PTSD (post-traumatic stress disorder) F43.10 ; Colon cancer C18.9 ; Major depressive disorder F32.9 ; Scoliosis of lumbar spine M41.9 ; Urinary incontinence R32 ; Tobacco dependence F17.200 ; History of bulimia Z86.59 and Raynaud's disease without gangrene I73.00 Balaji Massey III, MD [address] [place] [address] [place] [address] 09/18/2023 Balaji Massey III, MD [address] [place] [address] [place] [id number] 09/25/2023 Balaji Massey III, MD [address] [place] [address] [place] [id number] 09/25/2023 Balaji Massey III, MD [address] [place] [address] [place] [id number] 09/26/2023 Balaji Massey III, MD [address] [place] [address] [place] [id number] 12/19/2023 Balaji Massey III, MD [address] [place] [address] [place] [address] 03/27/2024 Balaji Massey Assessments Encounter Date Diagnosis (ICD Code) Assessment Notes Treat ment Notes Treatment Clinical Notes 08/21/2023 PVD (peripheral vascular disease) (ICD-10 - I73.9) I have requested a vascular surgery consultation to help with treatment. 08/21/2023 Major depressive disorder (ICD-10 - F32.9) Her depression is stable and mild to moderate. She is compliant with her therapy. 09/06/2023 Major depressive disorder (ICD-10 - F32.9) Her depression is stable and mild to moderate. She is compliant with her therapy. 09/06/2023 Scoliosis of lumbar spine (ICD-10 - M41.9) She has occasional mild back pain but none today. No change in her regimen was needed. 09/20/2023 Major depressive disorder (ICD-10 - F32.9) Her depression is stable and mild to moderate. She is compliant with her therapy. 09/20/2023 History of smoking (ICD-10 - Z87.891) We have discussed smoking cessation at length today. Given her Raynaud's syndrome, this becomes a central issue. She agrees with this and will make concerted effort to reduce her tobacco use and then stop. I have made her aware of smoke [place] in all the smoking cessation programs in the area. 09/22/2023 Hyperlipidemia, unspecified hyperlipidemia type (ICD-10 - E78.5) She will have a fasting lipid profile in the future as part of comprehensive blood work. 09/22/2023 Major depressive disorder (ICD-10 - F32.9) Her depression is stable and mild to moderate. She is compliant with her therapy. 10/11/2023 Chest pain (ICD-10 - R07.9) Stress test has been ordered. 10/11/2023 Major depressive disorder (ICD-10 - F32.9) Her depression is stable and mild to moderate. She is compliant with her therapy. 12/18/2023 Major depressive disorder (ICD-10 - F32.9) Her depression is stable and mild to moderate. She is compliant with her therapy. 12/18/2023 Scoliosis of lumbar spine (ICD-10 - M41.9) She has occasional mild back pain but none today. No change in her regimen was needed. 01/30/2024 Hyperlipidemia, unspecified hyperlipidemia type (ICD-10 - E78.5) She will have a fasting lipid profile prior to her next visit. No change in her regimen was made. 01/30/2024 Major depressive disorder (ICD-10 - F32.9) Her depression is stable and mild to moderate. She is compliant with her therapy. 03/25/2024 PTSD (post-traumatic stress disorder) (ICD-10 - F43.10) Emotionally she says she is stable at this time. She is conducting all of the activities of daily life normally. 03/25/2024 Hyperlipidemia, unspecified hyperlipidemia type (ICD-10 - E78.5) Her previous total cholesterol levels were 258 and 209. Her current values 271. She is not sure if she was fasting. This will be repeated after a straight 12 hour fast and decisions made about the necessity of treatment in the near future. 08/21/2023 Scoliosis of lumbar spine (ICD-10 - M41.9) She has occasional mild back pain but none today. No change in her regimen was needed. 09/06/2023 Urinary incontinence (ICD-10 - R32) There is been no change in the pattern or urinary incontinence. Since her last visit.She is 5. She has been referred to a urologist for evaluation and treatment. 09/20/2023 Scoliosis of lumbar spine (ICD-10 - M41.9) She has occasional mild back pain but none today. No change in her regimen was needed. 09/22/2023 Iron deficiency (ICD-10 - E61.1) Comprehensive blood work has been ordered to evaluate this chronic complaint. 10/11/2023 Scoliosis of lumbar spine (ICD-10 - M41.9) She has occasional mild back pain but none today. No change in her regimen was needed. 12/18/2023 Urinary incontinence (ICD-10 - R32) There is been no change in the pattern or urinary incontinence. Since her last visit.She is 5. She has been referred to a urologist for evaluation and treatment. 01/30/2024 Colon cancer (ICD-10 - C18.9) There was no sign of a relapse of the previous colon cancer. She remains in remission. An upper endoscopy showed no cause of the glenoid positive stool. She will be observed. 03/25/2024 Colon cancer (ICD-10 - C18.9) There was no sign of recurrent disease or new primary on today's examination. 08/21/2023 Urinary incontinence (ICD-10 - R32) There is been no change in the pattern or urinary incontinence. Since her last visit.She is 5. She has been referred to a urologist for evaluation and treatment. 09/06/2023 PTSD (post-traumatic stress disorder) (ICD-10 - F43.10) Her psychiatric status remains stable. She is not suicidal and continues to take her medication and see her therapist. 09/20/2023 Urinary incontinence (ICD-10 - R32) There is been no change in the pattern or urinary incontinence. Since her last visit.She is 5. She has been referred to a urologist for evaluation and treatment. 09/22/2023 Raynaud's disease without gangrene (ICD-10 - I73.00) I have ordered a rheumatoid factor, ANCA, cryoglobulins and routine blood work. She has been referred to a motor vehicle licence examiner for possible treatment. I have ordered a trial of nitroglycerin cream to her toes. She is currently taking diltiazem. 10/11/2023 Urinary incontinence (ICD-10 - R32) There is been no change in the pattern or urinary incontinence. Since her last visit.She is 5. She has been referred to a urologist for evaluation and treatment. 12/18/2023 Tobacco dependence (ICD-10 - F17.200) I strongly recommended smoking cessation. I offered to refer to this smoking cessation program at [facility] or the [facility]. She will consider this. I made her aware of the health consequences of continued smoking. 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 She reports that her feet are no longer purple now that the weather is warm. 03/25/2024 Major depressive disorder (ICD-10 - F32.9) Her depression is stable and mild to moderate. She is compliant with her therapy. 08/21/2023 PTSD (post-traumatic stress disorder) (ICD-10 - F43.10) Her psychiatric status remains stable. She is not suicidal and continues to take her medication and see her therapist. 09/06/2023 Tobacco dependence (ICD-10 - F17.200) I strongly recommended smoking cessation. I offered to refer to this smoking cessation program at [facility] or the [facility]. She will consider this. I made her aware of the health consequences of continued smoking. 09/20/2023 PTSD (post-traumatic stress disorder) (ICD-10 - F43.10) Her psychiatric status remains stable. She is not suicidal and continues to take her medication and see her therapist. 09/22/2023 Scoliosis of lumbar spine (ICD-10 - M41.9) She has occasional mild back pain but none today. No change in her regimen was needed. 10/11/2023 PTSD (post-traumatic stress disorder) (ICD-10 - F43.10) Her psychiatric status remains stable. She is not suicidal and continues to take her medication and see her therapist. 12/18/2023 Idiopathic peripheral neuropathy (ICD-10 - G60.9) She agreed to the trial of gabapentin. She will await the final diagnosis from the neurologist. 03/25/2024 Scoliosis of lumbar spine (ICD-10 - M41.9) She has occasional mild back pain but none today. No change in her regimen was needed. 08/21/2023 Colon cancer (ICD-10 - C18.9) There was no sign of a relapse of the previous colon cancer. She remains in remission. An upper endoscopy showed no cause of the glenoid positive stool. She will be observed. 09/06/2023 Hyperlipidemia, unspecified hyperlipidemia type (ICD-10 - E78.5) A fasting lipid profile has been ordered. We discussed the elements of a low animal fat diet. 09/20/2023 Colon cancer (ICD-10 - C18.9) There was no sign of a relapse of the previous colon cancer. She remains in remission. An upper endoscopy showed no cause of the glenoid positive stool. She will be observed. 09/22/2023 Colon cancer (ICD-10 - C18.9) There was no sign of a relapse of the previous colon cancer. She remains in remission. An upper endoscopy showed no cause of the glenoid positive stool. She will be observed. 10/11/2023 Tobacco dependence (ICD-10 - F17.200) I strongly recommended smoking cessation. I offered to refer to this smoking cessation program at [facility] or the [facility]. She will consider this. I made her aware of the health consequences of continued smoking. 12/18/2023 Raynaud's disease without gangrene (ICD-10 - I73.00) The AMA is weakly positive at 1-40 which is likely of no significance. Her qualitative cryoglobulins are positive. There is a possible monoclonal protein. She will see rheumatology and possibly hematology. An immunofixation of serum has been ordered. 03/25/2024 Urinary incontinence (ICD-10 - R32) There is been no change in the pattern or urinary incontinence. Since her last visit.She is 5. She has been referred to a urologist for evaluation and treatment. 08/21/2023 Renal cysts, acquired, bilateral (ICD-10 - N28.1) These appear to be simple renal cyst on the ultrasound and will be followed. 09/06/2023 Raynaud's disease without gangrene (ICD-10 - I73.00) Both feet are pink and warm and there was good capillary filling. No purple discoloration is currently presentt. This is likely Raynaud's phenomenon. 09/20/2023 Hyperlipidemia, unspecified hyperlipidemia type (ICD-10 - E78.5) A fasting lipid profile has been ordered. We discussed the elements of a low animal fat diet. 09/22/2023 Tobacco dependence (ICD-10 - F17.200) I strongly recommended smoking cessation. I offered to refer to this smoking cessation program at [facility] or the [facility]. She will consider this. I made her aware of the health consequences of continued smoking. 10/11/2023 Idiopathic peripheral neuropathy (ICD-10 - G60.9) She agreed to the trial of gabapentin. She will await the final diagnosis from the neurologist. 12/18/2023 Viral syndrome (ICD-10 - B34.9) She reports low-grade fever nausea vomiting diarrhea and cough. She is going to report every day. She will be seen in the office if necessary. She is going to have a test for rosa virus. She reports that her toes are still discolored but not painful. 03/25/2024 Tobacco dependence (ICD-10 - F17.200) I strongly recommended smoking cessation. I offered to refer to this smoking cessation program at [facility] or the [facility]. She will consider this. I made her aware of the health consequences of continued smoking. 08/21/2023 Adnexal mass (ICD-10 - N94.9) She remains under the care of [facility]. 09/06/2023 PVD (peripheral vascular disease) (ICD-10 - I73.9) I have requested a vascular surgery consultation to help with treatment. 09/20/2023 Tobacco dependence (ICD-10 - F17.200) I strongly recommended smoking cessation. I offered to refer to this smoking cessation program at [facility] or the [facility]. She will consider this. I made her aware of the health consequences of continued smoking. 09/22/2023 Idiopathic peripheral neuropathy (ICD-10 - G60.9) She agreed to the trial of gabapentin. She will await the final diagnosis from the neurologist. 10/11/2023 Raynaud's disease without gangrene (ICD-10 - I73.00) The AMA is weakly positive at 1-40 which is likely of no significance. Her qualitative cryoglobulins are positive. There is a possible monoclonal protein. She will see rheumatology and possibly hematology. An immunofixation of serum has been ordered. 03/25/2024 History of bulimia (ICD-10 - Z86.59) She denies any recurrence of bulimia. She has lost 15 pounds, she says, through diet and exercise. 08/21/2023 Tobacco dependence (ICD-10 - F17.200) I strongly recommended smoking cessation. I offered to refer to this smoking cessation program at [facility] or the [facility]. She will consider this. I made her aware of the health consequences of continued smoking. 09/20/2023 Hypothyroidism, unspecified (ICD-10 - E03.9) No change in her medication was needed today. 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 She reports that her feet are no longer purple now that the weather is warm. She has begun a trial of nifedipine with cold weather coming. 08/21/2023 Hyperlipidemia, unspecified hyperlipidemia type (ICD-10 - E78.5) A fasting lipid profile has been ordered. We discussed the elements of a low animal fat diet. 09/20/2023 Raynaud's disease without gangrene (ICD-10 - I73.00) All of her toes are discolored slightly purple reddish. The left third toe is purple. There is capillary filling in all of the toes. The feet are cool but not ice cold. There is no gangrene. She has been referred to rheumatology for their suggestions as to etiology and treatment. Blood work has been ordered. Plan Of Treatment Pending Test Test Name Order Date PROFILE, FASTING (COMPREHENSIVE METABOLI C) 09/29/2020 PROFILE, FASTING (COMPREHENSIVE METABOLI C) 01/30/2024 PROFILE, FASTING (COMPREHENSIVE METABOLI C) 08/08/2018 PROFILE, FASTING (COMPREHENSIVE METABOLI C) 01/31/2022 PROFILE, FASTING (COMPREHENSIVE METABOLI C) 03/25/2024 PROFILE, RANDOM (COMPREHENSIVE METABOLIC ) 11/01/2021 PROFILE, RANDOM (COMPREHENSIVE METABOLIC ) 10/11/2021 LIPID PANEL 09/29/2020 LIPID PANEL 08/08/2018 FREE T4 (FT4) 10/11/2021 TSH (THYROID STIMULATING HORMONE) 2021 TSH (THYROID STIMULATING HORMONE) 2023 FERRITIN 11/01/2021 FERRITIN 10/11/2021 CRP 09/22/2023 CEA 08/08/2018 CBC w DIFF 03/25/2024 CBC w DIFF 11/01/2021 CBC w DIFF 10/11/2021 CBC w DIFF 09/29/2020 CBC w DIFF 01/31/2022 CBC w DIFF 08/08/2018 SED RATE (ESR) 10/11/2021 SED RATE (ESR) 09/22/2023 PAP SMEAR (THIN PREP) 08/15/2022 VALENTINE (ALINA) 09/22/2023 VALENTINE (ALINA) 10/11/2021 CBC WITH AUTO DIFF 01/30/2024 Ferritin 01/31/2022 Lipid Panel 01/31/2022 Lipid Panel 03/25/2024 Lipid Panel 01/30/2024 Next Appt Details Provider Name:Balaji Massey, 08/26/2024 04:00:00 PM, [address] [place] [address] [address] [address], [place], [address], Insurance Providers Payer Name Payer Address Payer Phone Subscriber Number Group Number Insured Name Patient Relationship to Insured Coverage Start Date Coverage End Date MEDICARE [facility] [address] [place] [address] [id number] SIDRA SAUNDERS Self - patient is the insured MEDICAID [address] [place] [id number] SIDRA SAUNDERS Self - patient is the insured Medical (General) History Medical History History ICD Code Major depressive disorder F32.9 5 para 4 abortus 1 Z78.9 History of smoking Z87.891 Scoliosis of lumbar spine M41.9 Urinary incontinence R32 Constipation K59.00 PTSD (post-traumatic stress disorder) F4 3.10 Colon cancer C18.9 Herniated disk, L5-S1 Cystic lesion, right adnexa Peripheral neuropathy Surgical History Surgery Date(Month/Year) Right ear cyst removed, Plastic surgery, and radiation 1973 Colon resection 03/2015
--- OUTSIDE RECORDS SUMMARY | 2024-07-01 15:20 | XMS_ITS ---
Author Organization Balaji Massey III, MD Address [address] [place] [address] Care Team Providers Care Vessel Builder Name Role Phone Balaji Massey Primary Care Provider [phone] Unavailable [phone] Allergies Allergen (clinical drug ingredient) Drug/Non Drug Allergy documented on EMR Reaction Allergy Type Onset Date Status sulfacetamide Sulfacetamide Unknown Drug Allergy Active REASON FOR VISIT Follow Up Medications Medication SIG (Take, Route, Frequency, Duration) Notes Start Date End Date Status NIFEdipine 10 MG 1 capsule Orally toribio ry day 03/25/2024 Active Escitalopram Oxalate 10 MG 1 tablet Oral ly Once a day 05/23/2023 Active NIFEdipine 10 MG 1 capsule as needed Orally every 8 hrs Active Ondansetron HCl 8 MG 1 tablet as needed Orally every 6 hours 12/18/2023 Active Gabapentin 300 MG 1 capsule Orally thr ee times a day 08/21/2023 Active Nitroglycerin 2 % apply to all ten toe s Transdermal twice a day 09/25/2023 Active Verapamil HCl ER 240 MG TAKE 1 TABLET BY MOUTH EVERY DAY Diagnosis Unavailable Oral Active Linzess 145 MCG Oral Acti ve FeroSul 325 (65 Fe) MG TAKE 1 TABLET BY MOUTH EVERY DAY FOR 30 DAYS Active Escitalopram Oxalate 20 MG 1 tablet Oral ly Once a day 03/25/2024 Active Social History Tobacco Use: Social History Observation [...] User Modera te cigarette smoker (10-19 cigs/day) Encounters Encounter Location Date Provider Diagnosis Balaji Massey III, MD [address] [place] [address] [address] [place] [address] 05/15/2024 Balaji Massey Hyperlipidemia, unspecified hyperlipidemia type E78.5 Assessments Encounter Date Diagnosis (ICD Code) Assessment Notes Treat ment Notes Treatment Clinical Notes 05/15/2024 Hyperlipidemia, unspecified hyperlipidemia type (ICD-10 - E78.5) Her previous total cholesterol levels were 258 and 209. Her current values 271. She is not sure if she was fasting. This will be repeated after a straight 12 hour fast and decisions made about the necessity of treatment in the near future. Plan Of Treatment Medication Medication Name Sig Start Date Stop Date Notes NIFEdipine 10 MG 1 capsule Orally every day 03/25/2024 Escitalopram Oxalate 10 MG 1 tablet Orally Once a day 01/2023 NIFEdipine 10 MG 1 capsule as needed Orally every 8 hrs Ondansetron HCl 8 MG 1 tablet as needed Orally every 6 hours 12/18/2023 Gabapentin 300 MG 1 capsule Orally thr ee times a day 08/21/2023 Nitroglycerin 2 % apply to all ten toe s Transdermal twice a day 09/25/2023 Verapamil HCl ER 240 MG TAKE 1 TABLET BY MOUTH EVERY DAY Diagnosis Unavailable Oral Linzess 145 MCG Oral FeroSul 325 (65 Fe) MG TAKE 1 TABLET BY MOUTH EVERY DAY FOR 30 DAYS Escitalopram Oxalate 20 MG 1 tablet Orally Once a day 03/2024 Next Appt Details Provider Name:Balaji Massey, 08/26/2024 04:00:00 PM, [address] [place] [address] [address], [place], [address], Progress Notes * MOIZ QUINTANILLA MDOB: 0 (64 yo F)Acc No.[id number]:05/15/2024 Progress Notes Patient:?CHIPMOIZ Provider:?Balaji Massey MD :1960???Age:64 Y???Sex:Female D ate:05/15/2024 Address:[address], [place], [id number] Subjective: * Chief Complaints: * ???1. Follow Up. * HPI: ???COVID-19 Screening:?Questions?Have you had any new onset fever, chills, cough, congestion, sore throat, shortness of breath, muscle aches??No ?Have you been exposed to the virus within the last 10 days??No ?Have you travelled internationally in the last 10 days??No ?Have you been exposed to COVID-19 in the past??No * ROS:?General/Constitutional:?pain?only normal aches and pains.?Chills?denies.?Fatigue?admits.?Fever?denies.?ENT:?Decreased hearing?denies.?Respiratory:?Cough?denies.?Cardiovascular:?Chest pain with exertion?denies.?Dyspnea on exertion?denies.?Shortness of breath?denies.?Gastrointestinal:?Constipation?denies.?Decreased appetite?denies.?Diarrhea?denies.?Heartburn?denies.?Nausea?denies.?Rectal bleeding?denies.?Vomiting?denies.?Hematology:?bruising?denies.?petechiae?denies.?Swollen glands?none have been noted.?Genitourinary:?Frequent urination?denies.?Musculoskeletal:?Muscle aches?denies.?Painful joints?denies.?Sciatica?denies.?Weakness?denies.?Skin:?Itching?denies.?Rash?denies.?Skin lesion(s)?denies.?Neurologic:?Difficulty speaking?denies.?Dizziness?denies.?Headache?denies.?Low back pain?denies.?Psychiatric:?Depressed mood?denies.? * Medical History:?Major depre ssive disorder, 5 para 4 abortus 1, History of smoking, Scoliosis of lumbar spine, Urinary incontinence, Constipation, PTSD (post-traumatic stress disorder), Colon cancer, Herniated disk, L5-S1, Cystic lesion, right adnexa, Peripheral neuropathy. * Surgical History:?Colon rese ction 03/2015, Right ear cyst removed, Plastic surgery, and radiation 1972. * Hospitalization/Major Diagno stic Procedure:?Denies Past Hospitalization. * Family History:?Father: leeann browne 76 yrs, Colon polyps.?Mother: alive 76 yrs, Alcoholism.?1 brother(s) - healthy. 1 son(s) - healthy. .? An aunt has a history of colon cancer. Her mother has a history of alcoholism. She herself has a personal history of depression. She is not aware of any other family history of mental illness or substance use disorder. * Social History:?Tobacco Use:?Tobacco Use/Smoking?Patient is a?current smoker ?How often do you smoke cigarettes??every day ?How many cigarettes a day do you smoke??6-10 ?How soon after you wake up do you smoke your first cigarette??6-30 minutes ?Are you interested in quitting??Not ready to quit ?Additional Findings: Tobacco User?Moderate cigarette smoker (10-19 cigs/day) ???She was born in [place], [place]. She has 2 siblings. SHe has a son who [place] workks at [employer]. She was in 1992 and is unemployed. She is living with her boyfriend Laly. * Medications:?Taking Nitrogly cerin 2 % Ointment apply to all ten toes Transdermal twice a day , Taking FeroSul 325 (65 Fe) MG Tablet TAKE 1 TABLET BY MOUTH EVERY DAY FOR 30 DAYS , Taking Linzess 145 MCG Capsule Oral , Taking Verapamil HCl ER 240 MG Tablet Extended Release TAKE 1 TABLET BY MOUTH EVERY DAY Diagnosis Unavailable Oral , Taking Gabapentin 300 MG Capsule 1 capsule Orally three times a day , Taking Ondansetron HCl 8 MG Tablet 1 tablet as needed Orally every 6 hours , Taking NIFEdipine 10 MG Capsule 1 capsule Orally every day , Taking Escitalopram Oxalate 20 MG Tablet 1 tablet Orally Once a day , Discontinued NIFEdipine 10 MG Capsule 1 capsule as needed Orally every 8 hrs , Discontinued Escitalopram Oxalate 10 MG Tablet 1 tablet Orally Once a day , Medication List reviewed and reconciled with the patient * Allergies:?Sulfacetamide. Objective: * Vitals:? * Examination: ???General Examination: ?GENERAL APPEARANCE:?pleasant, well nourished, well developed, in no acute distress, calm and relaxed.?HEAD:?atraumatic, normocephalic.?EYES:?eomi, perrla, anicteric, conjugate.?EARS:?normal.?NOSE:?septum intact.?ORAL CAVITY:?normal, unremarkable.?NECK/THYROID:?no jugular venous distention, no carotid bruit, thyroid normal.?LYMPH NODES:?no enlarged lymph nodes,spleen normal.?SKIN:?no suspicious lesions, anicteric.?HEART:?no clicks, gallops, murmurs, or rubs, regular rhythm, S1, S2 normal, no s3, or vascular bruits.?LUNGS:?clear to auscultation .?BREASTS:??no masses palpable bilaterally.?ABDOMEN:?bowel sounds normal, no ascites, no organomegaly, no mass.?RECTAL EXAM:?not examined.?MUSCULOSKELETAL:?extremities unremarkable, no clubbing, cyanosis or edema.?PERIPHERAL PULSES:?normal.?NEUROLOGIC:?alert and oriented, cranial nerves 2-12 grossly intact, deep tendon reflexes 2+ symmetrical, motor strength normal upper and lower extremities, sensory exam intact.?PSYCH:?alert, oriented.? Assessment: * Assessment: 1.?Hyperlipidemia, unspecifi ed hyperlipidemia type - E78.5???Notes :Her previous total cholesterol levels were 258 and 209. Her current values 271. She is not sure if she was fasting. This will be repeated after a straight 12 hour fast and decisions made about the necessity of treatment in the near future.??? Plan: * Treatment: * Images: * The named appointment provid er may or may not be the originator of this progress note, and it is not deemed complete until electronically signed by the appointment provider. Sign off status: Pending * Provider:?Balaji Massey MD Date:?04/18 Generated for Abbe felder/Shena/eTransmitting on:?07/01/2024 03:19 PM EST History and Physical Notes * HPI (History of Present Illness) Category Sub-Category Detail Notes COVID-19 Screening Questions Have you had any new onset fever, chills, cough, congestion, sore throat, shortness of breath, muscle aches?: No Have you been exposed to the virus withi n the last 10 days?: No Have you travelled internationally in e last 10 days?: No Have you been exposed to COVID-19 in the past?: No Examination Category Sub-Category Detail Notes General Examination GENERAL APPEARANCE: pleasant , well nourished, well developed, in no acute distress, calm and relaxed HEAD: atraumatic, normocep halic EYES: eomi, perrla, anicte denice, conjugate EARS: normal NOSE: septum intact NECK/THYROID: no jugular venous di stention, no carotid bruit, thyroid normal HEART: no clicks, gallops, murmurs, or rubs, regular rhythm, S1, S2 normal, no s3, or vascular bruits LUNGS: clear to auscultatio n ABDOMEN: bowel sounds normal, no ascites, no organomegaly, no mass NEUROLOGIC: alert and oriented, cranial nerves 2-12 grossly intact, deep tendon reflexes 2+ symmetrical, motor strength normal upper and lower extremities, sensory exam intact SKIN: no suspicious lesion s, anicteric PERIPHERAL PULSES: normal BREASTS: no masses palpable b ilaterally MUSCULOSKELETAL: extremities unremark able, no clubbing, cyanosis or edema LYMPH NODES: no enlarged lymph no allie,spleen normal RECTAL EXAM: not examined PSYCH: alert, oriented ORAL CAVITY: normal, unremarkable
--- OUTSIDE RECORDS SUMMARY | 2024-07-01 15:20 | XMS_ITS ---
Author Organization Balaji Massey III, MD Address [address] [place] [address] [place] [address] Care Team Providers Care Waxer Operator Name Role Phone Balaji Massey Primary Care Provider [phone] Unavailable [phone] REASON FOR VISIT Follow Up Social History Sex Assigned At : Social History Observation Description Sex Assigned At Female Encounters Encounter Location Date Provider Diagnosis Balaji Massey III, MD [address] [place] [address] [place] [address] 05/06/2024 Balaji Massey Plan Of Treatment Next Appt Details Provider Name:Balaji Massey, 08/26/2024 04:00:00 PM, [address] [place] [address] [place], [address], Progress Notes * MOIZ SAUNDERS MDOB: 0 (64 yo F)Acc No.[id number]:05/06/2024 Progress Notes Patient:?MOIZ SAUNDERS Provider:?Balaji Massey MD :1960???Age:63 Y???Sex:Female D ate:05/06/2024 Address: [address], [id number] Subjective: * Chief Complaints: * ???1. Follow Up. * Medical History:? Objective: * Vitals:? Assessment: Plan: * Treatment: * Images: * The named appointment provid er may or may not be the originator of this progress note, and it is not deemed complete until electronically signed by the appointment provider. Sign off status: Pending * Provider:?Balaji Massey MD Date:?04/17 Generated for Abbe felder/Shena/Lucie on:?07/01/2024 03:19 PM EST
[2024-07-01] MEDS: iohexoL 350 MG/ML 100 ML INFUS..BTL IV (16:14)
[2024-07-02 08:00] LABS: Creatinine POC 1.2 mg/dL (0.5-1.4); GFR POC 50
== END 2024-07-01 15:18 | disposition home or self-care (01) ==
LOC: HO.CT 15:17
PROVIDERS: PCP Internal Medicine Medical Oncology; Visit Provider Student in an Organized Health Care Education/Training Program
DX: I77.6 Arteritis, unspecified (principal); I73.1 Thromboangiitis obliterans [Buerger's disease]
CPT/HCPCS: 75635; 82565; Q9967

== ENCOUNTER 2024-07-16 13:25 | Outpatient (AMB) | payer MEDICARE, MEDICAID, SELFPAY ==
--- NOTE | 2024-07-16 13:27 | A.OFFVIS_ITS ---
Vital Signs 07/16/24 13:28 Height 5 ft 6 in Weight 151 lb 7.321 oz BMI 24.4 BP 102/62 Blood Pressure Location Rt brachial Position Sitting Pulse 89 Pulse Source Pulse Oximeter Intake Visit Reasons: Raynauds Intake Note: Patient present today for Raynauds. Swimming Pool Serviceperson Required: No Accompanied by: Self / Same As Patient Allergies magnesium sulfate [From SUPREP] Allergy (Intermediate, Verified 07/16/24 13:31) RASH potassium [From SUPREP] Allergy (Intermediate, Verified 07/16/24 13:31) RASH sodium sulfate [From SUPREP] Allergy (Intermediate, Verified 07/16/24 13:31) RASH nabumetone [NABUMETONE] Allergy (Unknown, Verified 07/16/24 13:31) STOMACH UPSET sumatriptan [From IMITREX] Allergy (Unknown, Verified 07/16/24 13:31) NAUSEA & VOMITING, nausea,vomiting SuPrep Bowel Prep Kit (Na Sulf Allergy (Unknown, Uncoded 07/16/24 13:31) --Sulfa Medication List - Last Reconciled 07/16/24 by Lorri Parra MD escitalopram oxalate 20 mg PO DAILY ferrous sulfate (FeroSul) 325 mg PO DAILY gabapentin ER 900 mg PO QPM nifedipine ER 30 mg PO DAILY HPI Comments Details: Patient is a 63-year-old current everyday smoker (50 pack years) with major depressive disorder and a history of suicidal attempt who presents for follow up of Raynaud's Disease Interval History: Patient last seen 04/23/2024. At that time she was establishing care for the evaluation of color change to toes. Given her significant smoking history the concern was for Buerger's disease/Raynaud's disease. Blood work and imaging were sent. Imaging did not show any evidence of vasculitis (medium or large vessel). Blood work did show high positive IgM beta 2 and anticardiolipin antibodies. Today patient reports doing well. She is tolerating the nifedipine. No new complaints Rheumatologic History: Establish care 04/23/2024 for the evaluation of color changes to toes. Given her significant smoking history the concern was for Buerger's disease/Raynaud's disease. Blood work and imaging was sent. We will she need not show any significant evidence of medium or large vessel vasculitis however blood work was positive for beta 2 and anticardiolipin antibodies consistent with antiphospholipid syndrome. Current working diagnosis is antiphospholipid syndrome. Current Rheumatology Medication(s): Nifedipine 30mg ER PFSH Medical History (Updated 07/16/24 @ 14:06 by Lorri Parra MD) Antiphospholipid antibody syndrome Antiphospholipid antibody positive Raynauds disease History of anemia Tobacco dependence Hx of major depression Hx of colon cancer, stage I Chronic idiopathic constipation Surgical History History of esophagogastroduodenoscopy (EGD) H/O right hemicolectomy H/O colonoscopy Family History Maternal Aunt Colon cancer Father FH: colon polyps Social History Household Members: Significant Other Alcohol intake: current Alcohol intake frequency: does not drink Patient Tobacco Use Status: Current everyday Tobacco user Tobacco use type: Cigarette Cigarettes Per Day: 10 Current occupational status: unemployed Review of Systems Const Details: Review of Systems Constitutional: Denies fever, chills, weight loss ENT: Denies vision changes, eye pain or eye redness, dental caries, dry mouth GI: Denies nausea, vomiting, diarrhea, abdominal pain, change in BM Pulm: Denies SOB, GALINDO, hemoptysis, wheezing Cards: Denies chest pain, palpitations Skin: Denies rash, nail changes, photosensitivity, DIRECTOR BUSINESS INTEGRATION: Denies headaches, weakness, paresthesias, recurrent falls MSK: Complains joint stiffness. Denies joint swelling, muscle weakness, bone pain All other systems reviewed and are unremarkable except noted above Physical Exam Vital Signs: Last Vital Signs Pulse 89 07/16/24 13:28 BP 102/62 07/16/24 13:28 BMI result Body Mass Index 24.4 Physical Examination CONSTITUITIONAL Patient alert and cooperative. Well appearing and in no apparent painful distress HEENT Conjunctiva and sclera clear. ?Pupils equal round and reactive to light. ?No lymphadenopathy. ? CHEST/RESPIRATORY SYSTEM Normal respiratory effort and able to speak in complete sentences. ?Clear to auscultation bilaterally. ?No crackles, rales, rhonchi, wheezes heard. CARDIAC SYSTEM Regular rate and rhythm. ?S1 and S2 heard no murmurs. ?Radial pulses intact bilaterally MSK Hands: ?Good evp and chief operating officer strength bilaterally. No deformities noted. ?No synovitis noted to the MCPs, PIPs or DIPs. ?No tenderness to palpation of these joints. Wrists: ?Full range of motion at the wrists without pain. ?No tenderness to palpation or synovitis noted to the wrists. Elbows: Full range of motion without pain. No tenderness, weakness, swelling, increased warmth or erythema. Shoulders: Full range of motion without pain. No tenderness, weakness, swelling, increased warmth or erythema. Hips: Full range of motion without pain. Hip bursa: No tenderness to palpation Knees: ?Full range of motion. ?No tenderness, swelling, increased warmth or erythema.?No effusion or crepitations Ankles: Full range of motion. ?No tenderness, swelling, increased warmth or erythema.? Feet: ?Negative squeeze test. ?No tenderness to palpation or swelling of the MTPs. Tender points:?No tenderness to palpation of the bilateral trapezius, supraspinatus, greater trochanters, anterior costochondral junctions, bilateral gluteal areas, bilateral suboccipital muscle insertions SKIN Skin intact without rashes. Results Reviewed Results Reviewed: Laboratory Tests 09/22/23 03/19/24 04/23/24 17:13 12:25 08:55 WBC 6.1 RBC 4.09 L Hgb 13.6 Hct 39.0 Plt Count 206 D ESR 30 H Sodium 141 Potassium 5.3 H D Chloride 109 H Carbon Dioxide 27 BUN 16 Creatinine 0.97 AST 12 ALT 8 Alkaline Phosphatase 81 C-Reactive Protein 0.14 Cryoglobulin POSITIVE Negative Rheumatoid Factor < 13.0 < 13.0 VALENTINE Screen POSITIVE A NEGATIVE VALENTINE Titer 1:40 H Beta-2-GPI IgM Ab >112.0 H Anti-Cardiolipin IgM Ab >112.0 H Laboratory Tests 04/23/24 08:55 Proteinase 3 (PR3) Ab <1.0 Myeloperoxidase Ab <1.0 Beta-2-GPI IgG Ab 5.3 Beta-2-GPI IgA Ab <2.0 Anti-Cardiolipin IgG Ab 5.6 Aorta w Runoff 07/01/24 FINDINGS: VASCULAR: Abdominal Aorta: Moderate mixed atherosclerotic disease. No dissection or aneurysmal dilation. Normal aortic taper. Mesenteric Arteries: The celiac axis, superior mesenteric artery and inferior mesenteric artery are patent. These are normal in caliber. Renal Artery: Single renal arteries bilaterally. Renal arteries are patent and without stenosis or other vascular anomaly. Right Lower Extremity: Right Common Iliac Artery: Patent. Mild calcified atherosclerotic disease resulting in no high grade stenosis. Right External Iliac Artery: Patent Right Internal Iliac Artery: Patent. Common Femoral Artery: Patent Superficial Femoral Artery: Patent Profunda Femoris: Patent. Popliteal Artery: Patent Tibioperoneal Trunk: Patent. Anterior Tibial Artery: Patent. Peroneal Artery: Patent. Posterior Tibial Artery: Patent. Dorsalis Pedis: Patent. Plantar Arch: Patent. Left lower extremity: Left Common Iliac Artery: Patent. Mild calcified atherosclerotic disease resulting in no high grade stenosis. Left External Iliac Artery: Patent Left Internal Iliac Artery: Patent. Common Femoral Artery: Patent Superficial Femoral Artery: Patent Profunda Femoris: Patent. Popliteal Artery: Patent Tibioperoneal Trunk: Patent. Anterior Tibial Artery: Patent. Peroneal Artery: Patent. Posterior Tibial Artery: Patent. Dorsalis Pedis: Patent. Plantar Arch: Patent. NONVASCULAR FINDINGS: ABDOMEN/PELVIS: Lung Bases: The visualized lung bases are clear. Liver: Visualized liver is homogeneous in attenuation. Normal in size. Gallbladder: Cholelithiasis. Noninflamed. Biliary System: No intrahepatic or extrahepatic biliary dilation. Pancreas: Homogeneous in attenuation. Spleen: Normal in size. Genitourinary: Bilateral kidneys demonstrate symmetric enhancement. Exophytic left simple renal cyst measuring 3.7 cm. No perinephric fluid collection. No renal calculi. No hydroureteronephrosis. Adrenal Glands: Unremarkable. Reproductive: Uterus and and bilateral adnexa are unremarkable. Gastrointestinal: The visualized alimentary tract is normal in course. No evidence of obstruction. Appendix: Surgically absent. Peritoneum: No pneumoperitoneum. No intra-abdominal fluid collection. Lymph Nodes: No pathologically enlarged abdominal or pelvic lymph nodes. Soft Tissues/Musculoskeletal: Multilevel degenerative changes of the lumbar spine, worst at L5-S1. IMPRESSION: VASCULAR: Abdomen/Pelvis: 1. No abdominal aortic aneurysm or dissection. 2. No evidence of large or medium vessel vasculitis. Right Lower Extremity: Three-vessel runoff to the foot. Left Lower Extremity: Three-vessel runoff to the foot. NONVASCULAR: No acute abdominopelvic findings. Chronic findings as described above. Assessment & Plan Assessment & Plan (1) Antiphospholipid antibody syndrome: Code(s): D68.61 - Antiphospholipid syndrome Category: Medical Plan: #Antiphospholipid Antibody Syndrome Patient with high positive APS labs: IgM ACL and B2G. This is seen in patients with lupus and APS. Given her history, low suspicion that this is due to lupus given her lack of inflammatory joint pain, alopecia, oral ulcers, photosensitive rash or discoid type rash. For the diagnosis of APS the antibodies would have to be persistent (present atleast 12 weeks apart). She does not have any evidence or history of DVT or PE but given her high positive titres I will start her on ASA. Raynaud's can also be seen in patients with APS Plan - Recheck APS labs today: ACL, B2G, LA - Start ASA 81mg daily - RTC 6 months or sooner if needed (2) Raynauds disease: Code(s): I73.00 - Raynaud's syndrome without gangrene Category: Medical Qualifiers: Raynaud?s-associated gangrene presence: without gangrene Qualified Code(s): I73.00 - Raynaud's syndrome without gangrene Plan: #Raynauds Syndrome ?Primary vs secondary Given the positive APS labs it is likely that her RP is secondary to APS but will still need to show that the antibodies are persistent Continue nifedipine Conservative measures to keep core body warm Plan - Nifedipine 30mg ER - Keep core body warm Plan I spent 20 minutes reviewing the record and labs, seeing the patient, discussing the treatment plan and documenting in the medical record Orders: Orders Cardiolipin Antibodies Today I73.00 - Raynaud's syndrome without gangrene, R76.0 - Raised antibody titer Lupus Anticoagulant Panel Today I73.00 - Raynaud's syndrome without gangrene, R76.0 - Raised antibody titer UA w Microscopic Today R31.9 - Hematuria, unspecified Beta-2 Glycoprotein Antibody Today I73.00 - Raynaud's syndrome without gangrene, R76.0 - Raised antibody titer Coding Level of Care Code Est Pt Level 3 (28449) Complex EM visit Add On G2211 Diagnoses Antiphospholipid antibody syndrome D68.61 Raynaud's disease without gangrene I73.00 Raynaud?s-associated gangrene presence: without gangrene
--- OUTSIDE RECORDS SUMMARY | 2024-07-16 13:27 | XMS_ITS | Patient Health Record ---
Author Organization Balaji Massey III, MD Address [address] [place] [facility] [place] [address] Care Team Providers Care Health Director Name Role Phone Balaji Massey Primary Care Provider LEANN NATION Unavailable [phone] Allergies Allergen (clinical drug ingredient) Drug/Non Drug [...] Thyroxine) Reviewed date:09/24/2023 01:30:40 PM Interpretation: Performing Lab:[facility], [address] [place] [phone] Notes/Report: Free T4 (Free Thyroxine) 0.84 0.71-1.85 ng/dL Protein Electrophoresis, Ser um Reviewed date:10/11/2023 04:02:43 PM Interpretation: Performing Lab:[facility], [address] [place] [phone] Notes/Report: Prot Elec - Total Protein 7.1 [...] serum immunofixation. THIS TEST WAS PERFORMED AT: [facility] [address] [place] [phone] MILLA ROSENBAUM MD Cryoglobulin Reviewed date:10/14/2023 07:04:12 PM Interpretation: Performing Lab:[address] [address] Notes/Report: Cryoglobulin, Qual POSITIVE Cryoglobulin, Ql, Serum: Positive (Abnormal) Reference Interval: None detected This test was developed and its performance characteristics determined by [employer]. It has not been cleared or approved by the Food and Drug Administration. Performing Labs: [address] [address] Dir: Joya Ramirez MD For inquiries, the physician may contact Branch: [phone] Lab: [phone] Cryocrit TNP Rheumatoid Factor Reviewed date:09/24/2023 01:30:40 PM Interpretation: Performing Lab:[facility], [address] [place] [phone] Notes/Report: Rheumatoid Factor < 13.0 <15.0 IU/mL Erythrocyte Sedimentation Ra te Reviewed date:09/24/2023 01:30:40 PM Interpretation: Performing Lab:[address] [address] Notes/Report: Erythrocyte Sedimentation Rate 38 0-20 MM/HR Patients with polycythemia and many hemoglobin abnormalities may have depressed sed rates whereas patients with anemia may have elevated sed rates. C Reactive Protein Reviewed date:09/24/2023 01:30:40 PM Interpretation: Performing Lab:[address] [address] Notes/Report: C Reactive Protein 0.65 < or = 0.50 mg/dL Thyroid Stimulating Hormone Reviewed date:09/24/2023 01:30:40 PM Interpretation: Performing Lab:[facility], [address] [place] [phone] Notes/Report: Thyroid Stimulating Hormone 3.58 0.32-4.0 uIU/mL Note: A sustained TSH level above 2.5 uIU/mL may warrant further investigation. TSH 3rd Generation ([facility]) VALENTINE Reflex Titer and Pattern Reviewed date:10/11/2023 04:02:43 PM Interpretation: Performing Lab:[facility], [address] [place] [phone] Notes/Report: Anti Nuclear Antibody Screen POSITIVE NEGATIVE VALENTINE IFA is a first line screen for detecting the presence of up to approximately 150 autoantibodies in various autoimmune diseases. A positive VALENTINE IFA result is suggestive of autoimmune disease and reflexes to titer and pattern. Further laboratory testing may be considered if clinically indicated. For additional information, please refer to http://education.Brickflow/faq/FJS055 (This link is being provided for informational/ [...] date:10/11/2023 04:02:43 PM Interpretation: Performing Lab: Notes/Report: [address] [address] Ultrasound Report Signed Patient: Sidra Saunders MR#: [id number] : 1960 Acct:[id number] Age/Sex: 63 / F ADM Date: 10/02/23 Loc: .US Attending Dr: Balaji Massey MD Ordering Physician: Balaji Massey MD Date of Service: 10/02/23 Procedure(s): US arterial duplex LE BI Accession Number(s): [id number] cc: Balaji Massey MD EXAMINATION: BILATERAL LOWER [...] in OV> 10/03/23 1411 DD/ 1419 TD/TT: Helper Marble Finisher: [place] [address] Ultrasound Report Signed Patient: Esther Saunders MR#: [id number] : 1960 Acct:[id number] Age/Sex: 63 / F ADM Date: 10/02/23 Loc: . Attending Dr: Balaji Massey MD Ordering Physician: Balaji Massey MD Date of Service: 10/02/23 Procedure(s): US arterial duplex LE BI Accession Number(s): [id number] cc: Balaji Massey MD EXAMINATION: BILATERAL LOWER [...] in OV> 10/03/23 1411 DD/ 1419 TD/TT: Helper Marble Finisher: Complete Blood Count Auto Di ff Reviewed date:12/24/2023 07:19:00 PM Interpretation: Performing Lab:[facility], [address] [place] [phone] Notes/Report: White Blood Count 2.2 4.8-10.8 X10*3/uL [...] CBC Reviewed date:12/24/2023 07:19:00 PM Interpretation: Performing Lab:[facility], [address] [place] [phone] Notes/Report: Pathologist Review - CBC SEE NOTE White blood cells are decreased in number, a few lymphocytes with viral changes are present. Platelets are reduced in number; rare large and giant forms are identified. - Efrem Valdes M.D. Pathology Comprehensive Met. Panel Reviewed date:12/24/2023 07:19:00 PM Interpretation: Performing Lab:[address] [address] Notes/Report: Sodium 136 135-145 mmol/L Potassium 3.4 [...] Estimated Glomerular Filt Rate 46 NOTE: For -Danish individuals, multiply the result by 1.210. Chronic [...] REVIEW Reviewed date:12/24/2023 07:19:00 PM Interpretation: Performing Lab:[address] [address] Notes/Report: SLIDE REVIEW VERIFIED SARS-CoV2/FLU/RSV Reviewed date:12/24/2023 07:19:00 PM Interpretation: Performing Lab:[facility], [address] [place] [phone] Notes/Report: Influenza A PCR POSITIVE Negative Influenza [...] by authorized laboratories. Testing performed on the [employer] GeneXpert utilizing real-time RT-PCR. All SARS CoV2 and positive influenza A/B results are reported to [facility]. UA ClnCatch+Micro w/rflx Cul t Reviewed date:12/24/2023 07:19:00 PM Interpretation: Performing Lab:[address] [address] Notes/Report: Urine, Clean Catch Color Urine Dark Yellow Appearance Urine Clear PH 6.0 5.0-9.0 Glucose Urine UA Negative Negative mg/dL Urine Blood Negative Negative Specific [place] - Urine 1.025 1.005-1.025 Urine Protein 30 [...] date:12/24/2023 07:19:00 PM Interpretation: Performing Lab: Notes/Report: [address] [address] Ultrasound Report Signed Patient: Sidra Saunders MR#: [id number] : 1960 Acct:[id number] Age/Sex: 63 / F ADM Date: 12/20/23 Loc: .ED Attending Dr: Ordering Physician: Josue Rasmussen Date of Service: 12/20/23 Procedure(s): US venous duplex LE BI Accession Number(s): [id number] cc: Balaji Massey MD; Josue Rasmussen EXAMINATION: [...] MD in OV> 12/20/231925 DD/ 41 TD/TT: Helper Marble Finisher: FADI [address] [address] Ultrasound Report Signed Patient: Esther Saunders MR#: [id number] : 1960 Acct:[id number] Age/Sex: 63 / F ADM Date: 12/20/23 Loc: HO.ED Attending Dr: Ordering Physician: Josue Rasmussen Date of Service: 12/20/23 Procedure(s): US venous duplex LE BI Accession Number(s): [id number] cc: Balaji Massey MD; Josue Rasmussen EXAMINATION: [...] MD in OV> 12/20/231925 DD/ 41 TD/TT: Helper Marble Finisher: FADI HERNANDEZ chest 2V Reviewed date:12/24/2023 07:19:00 PM Interpretation: Performing Lab: Notes/Report: [address] [address] XRay Report Signed Patient: Sidra Saunders MR#: [id number] : 1960 Acct:[id number] Age/Sex: 63 / F ADM Date: 12/20/23 Loc: HO.ED Attending Dr: Ordering Physician: Nandini Lnae NP Date of Service: 12/20/23 Procedure(s): XR chest 2V Accession Number(s): [id number] cc: Balaji Massey MD; Nandini Lane NP [...] in OV> 12/20/23 1855 DD/ 1806 TD/TT: Helper Marble Finisher: [address] [address] XRay Report Signed Patient: Esther Saunders MR#: [id number] : 1960 Acct:[id number] Age/Sex: 63 / F ADM Date: 12/20/23 Loc: .ED Attending Dr: Ordering Physician: Nandini Lane NP Date of Service: 12/20/23 Procedure(s): XR jennifer st 2V Accession Number(s): [id number] cc: Balaji Massey MD; Nandini Lane NP [...] in OV> 12/20/23 1855 DD/ 1806 TD/TT: Helper Marble Finisher: XR wrist LT 2V Reviewed date:03/14/2024 12:30:01 PM Interpretation: Performing Lab: Notes/Report: [address] [address] XRay Report Signed Patient: Sidra Saunders MR#: [id number] : 1960 Acct:[id number] Age/Sex: 63 / F ADM Date: 03/13/24 Loc: HO.ED Attending Dr: Ordering Physician: Generic ED Physician Date of Service: 03/13/24 Procedure(s): XR wrist LT 2V Accession Number(s): [id number] cc: Balaji Massey MD; Generic ED Physician [...] 03/14/24 0003 DD/ 2310 TD/TT: 03/13/24 2320 Helper Marble Finisher: RUFINA [address] [address] XRay Report Signed Patient: Esther Saunders MR#: [id number] : 1960 Acct:[id number] Age/Sex: 63 / F ADM Date: 03/13/24 Loc: .ED Attending Dr: Ordering Physician: Generic ED Physician Date of Service: 03/13/24 Procedure(s): XR wri st LT 2V Accession Number(s): [id number] cc: Balaji Massey MD; Generic ED Physician [...] OV> 03/14/24 0003 DD/ 09 TD/TT: 03/13/242319 Helper Marble Finisher: RUFINA Complete Blood Count Auto Di ff Reviewed date:03/20/2024 09:03:44 AM Interpretation: Performing Lab:[facility], [address] [place] [phone] Notes/Report: White Blood Count 6.1 4.8-10.8 X10*3/uL [...] NRBC Abs Auto 0.000 0.0-0.012 X10*3/uL Comprehensive El[place]. Panel Fa st Reviewed date:03/20/2024 09:03:44 AM Interpretation: Performing Lab:[facility], [address] [place] [phone] Notes/Report: Sodium 141 135-145 mmol/L Potassium 5.3 3.3-5.1 mmol/L Chloride 109 96-108 mmol/L Carbon Dioxide 27 22-29 mmol/L Anion Gap 10 12-20 Blood Urea Nitrogen 16 9-16 mg/dL Creatinine 0.97 0.5-1.4 mg/dL Estimated Glomerular Filt Rate 58 NOTE: For -Danish individuals, multiply the result by 1.210. Chronic [...] Panel Reviewed date:03/20/2024 09:03:44 AM Interpretation: Performing Lab:[facility], [address] [place] [phone] Notes/Report: Triglycerides 174 <150 mg/dL Desirable Triglyceride: [...] te Reviewed date:04/29/2024 07:19:11 AM Interpretation: Performing Lab:[facility], [address] [place] [phone] Notes/Report: Erythrocyte Sedimentation Rate 30 0-20 MM/HR Patients with polycythemia and many hemoglobin abnormalities may have depressed sed rates whereas patients with anemia may have elevated sed rates. Lupus Anticoagulant Panel Reviewed date:05/20/2024 05:48:38 AM Interpretation: Performing Lab:[facility], [address] [place] [phone] Notes/Report: Lupus Interpretation see note A Lupus Anticoagulant is not detected. Common causes for a prolonged screen and negative confirmatory test include factor deficiencies or anticoagulant therapy. Reference Range: Not Detected For additional information, please refer to http://education.BrandShield/faq/FAQ01v 2 (This link is being provided for informational/ educational purposes only.) This interpretation is based on the following test results. PTT (LAC) Screen 59 <=40 sec DRVVT Screen 47 <=45 sec DRVVT Confirmation Negative Negative THIS TEST WAS PERFORMED AT: [facility]/[address] [address] ALE KHALIL MD,PHD DRVVT 1:1 Mix TNP DRVVT 1:1 Mix Interpretation TNP Hexagonal Phase Neutralization Negative Negative Thrombin Clotting Time TNP C Reactive Protein Reviewed date:04/29/2024 07:19:11 AM Interpretation: Performing Lab:[facility], [address] [place] [phone] Notes/Report: C Reactive Protein 0.14 < or = 0.50 mg/dL Cardiolipin Antibodies Reviewed date:04/29/2024 07:19:11 AM Interpretation: Performing Lab:[facility], [address] [place] [phone] Notes/Report: Cardiolipin IgG Ab 5.6 Value Interpretation [...] aging. For additional information, please refer to http://education.BrandShield/faq/HNN800 (This link is being provided for informational/ educational purposes only.) THIS TEST WAS PERFORMED AT: [facility] [address] [place] [phone] MILLA ROSENBAUM MD Beta-2 Glycoprotein Antibody Reviewed date:04/29/2024 07:19:11 AM Interpretation: Performing Lab:[facility], [address] [place] [phone] Notes/Report: Beta-2 Glycoprotein IgG 5.3 <20.0 U/mL [...] aging. For additional information, please refer to http://education.BrandShield/faq/MAG985 (This link is being provided for informational/ educational purposes only.) THIS TEST WAS PERFORMED AT: [facility] [address] [place] [address] ALE KHALIL MD,PHD Cryoglobulin Reviewed date:05/20/2024 05:48:38 AM Interpretation: Performing Lab:[address] [address] Notes/Report: Cryoglobulin, Qual Negative Negative The Cryocrit is primarily intended for following a patient with previously defined and quantitated cryoglobulins. The cryocrit may consist of cryoglobulins, fibrins, complement, or mixtures of these. THIS TEST WAS PERFORMED AT: [facility] [address] [place] [address] ALE KHALIL MD,PHD Cryocrit TNP VALENTINE Reflex Titer and Pattern Reviewed date:04/29/2024 07:19:11 AM Interpretation: Performing Lab:[address] [address] Notes/Report: Anti Nuclear Antibody Screen NEGATIVE NEGATIVE [...] Negative International Consensus on VALENTINE Patterns (https://doi.org/10.1515 /kdnd-6909-7270) For additional information, please refer to http://education.Brickflow/faq/DDK566 (This link is being provided for informational/ educational purposes only.) THIS TEST WAS PERFORMED AT: [facility] [address] [place] [phone] MILLA ROSENBAUM MD Anti Nuclear Antibody Titer TNP Anti Nuclear Antibody Pattern TNP VALENTINE Titer 2 TNP VALENTINE Pattern 2 TNP VALENTINE Titer 3 TNP VALENTINE Pattern 3 TNP ANCA Vasculitides Reviewed date:04/29/2024 07:19:11 AM Interpretation: Performing Lab:[facility], [address] [place] [phone] Notes/Report: Myeloperoxidase Antibody <1.0 Value Interpretation ----- [...] = 1.0 Antibody Detected Autoantibodies to proteinase-3 (WA-3) are accepted as characteristic for granulomatosis with polyangiitis (GPA, Irene's), and are detectable in 95% of the histologically proven cases. The cytoplasmic IFA pattern, (c-ANCA), is based largely on autoantibody to WA-3 which serves as the primary antigen. These autoantibodies are present in active disease. THIS TEST WAS PERFORMED AT: [facility] [address] [place] [phone] MILLA ROSENBAUM MD Rheumatoid Factor Reviewed date:04/29/2024 07:19:11 AM Interpretation: Performing Lab:[facility], [address] [place] [phone] Notes/Report: Rheumatoid Factor < 13.0 <15.0 IU/mL Creatinine GFR POC Reviewed date:07/07/2024 08:39:18 PM Interpretation: Performing Lab:[facility], [address] [place] [phone] Notes/Report: [id number] 1.15 50 1531 HO.DIAZAAR Creatinine POC 1.2 0.5-1.4 mg/dL GFR POC 50 Chronic Kidney Disease: Estimated GFR < 60 mL/min/1.73m2 Severe Kidney Disease: Estimated GFR < 15 mL/min/1.73m2 CT angio abd aorta runoff Reviewed date:07/07/2024 08:39:18 PM Interpretation: Performing Lab: Notes/Report: [address] [address] [address] Scan Report Signed Patient: Sidra Saunders MR#: [id number] : 1960 Acct:[id number] Age/Sex: 64 / F ADM Date: 07/01/24 Loc: HO.CT Attending Dr: Lorri Parra MD Ordering Physician: Lorri Parra MD Date of Service: 07/01/24 Procedure(s): CT angio abd aorta runoff Accession Number(s): [id number] cc: Lorri Parra MD; Balaji Massey MD EXAMINATION: CT ANGIOGRAPHY ABDOMEN, PELVIS AND LOWER EXTREMITY RUNOFF WITH CONTRAST CLINICAL INFORMATION: I77.6 - Arteritis, unspecified COMPARISON: None TECHNIQUE: Initial noncontrast localizing shipping receiving clerk images were obtained. Timing boluses at the level of the celiac and popliteal arteries were calculated. Subsequently, arterial phase multidetector volumetric imaging was performed through the abdomen, pelvis and bilateral lower extremities following the administration of 99 mL Omnipaque 350 intravenous contrast. No contrast reaction reported Sagittal and coronal reformatted images were obtained on the technologist workstation. After extensive post-processing on a dedicated 3-D workstation, 3-D reformatted images were uploaded to PACS and reviewed as well. This CT examination was performed using dose optimization techniques as appropriate, variously including the following: *Automated exposure control *Adjustment of mA and/or kV according to patient size (this includes techniques or standardized protocols for targeted exams where dose is matched to indication/reason for exam; i.e. extremities or head) *Use of iterative reconstruction technique DLP: 486 mGy-cm FINDINGS: VASCULAR: Abdominal Aorta: Moderate mixed atherosclerotic disease. No dissection or aneurysmal dilation. Normal aortic taper. Mesenteric Arteries: The celiac axis, superior mesenteric artery and inferior mesenteric artery are patent. These are normal in caliber. Renal Artery: Single renal arteries bilaterally. Renal arteries are patent and without stenosis or other vascular anomaly. Right Lower Extremity: Right Common Iliac Artery: Patent. Mild calcified atherosclerotic disease resulting in no high grade stenosis. Right External Iliac Artery: Patent Right Internal Iliac Artery: Patent. Common Femoral Artery: Patent Superficial Femoral Artery: Patent Profunda Femoris: Patent. Popliteal Artery: Patent Tibioperoneal Trunk: Patent. Anterior Tibial Artery: Patent. Peroneal Artery: Patent. Posterior Tibial Artery: Patent. Dorsalis Pedis: Patent. Plantar Arch: Patent. Left lower extremity: Left Common Iliac Artery: Patent. Mild calcified atherosclerotic disease resulting in no high grade stenosis. Left External Iliac Artery: Patent Left Internal Iliac Artery: Patent. Common Femoral Artery: Patent Superficial Femoral Artery: Patent Profunda Femoris: Patent. Popliteal Artery: Patent Tibioperoneal Trunk: Patent. Anterior Tibial Artery: Patent. Peroneal Artery: Patent. Posterior Tibial Artery: Patent. Dorsalis Pedis: Patent. Plantar Arch: Patent. NONVASCULAR FINDINGS: ABDOMEN/PELVIS: Lung Bases: The visualized lung bases are clear. Liver: Visualized liver is homogeneous in attenuation. Normal in size. Gallbladder: Cholelithiasis. Noninflamed. Biliary System: No intrahepatic or extrahepatic biliary dilation. Pancreas: Homogeneous in attenuation. Spleen: Normal in size. Genitourinary: Bilateral kidneys demonstrate symmetric enhancement. Exophytic left simple renal cyst measuring 3.7 cm. No perinephric fluid collection. No renal calculi. No hydroureteronephrosis. Adrenal Glands: Unremarkable. Reproductive: Uterus and and bilateral adnexa are unremarkable. Gastrointestinal: The visualized alimentary tract is normal in course. No evidence of obstruction. Appendix: Surgically absent. Peritoneum: No pneumoperitoneum. No intra-abdominal fluid collection. Lymph Nodes: No pathologically enlarged abdominal or pelvic lymph nodes. Soft Tissues/Musculoskeletal: Multilevel degenerative changes of the lumbar spine, worst at L5-S1. CT/CT angio abd aorta runoff IMPRESSION: VASCULAR: Abdomen/Pelvis: 1. No abdominal aortic aneurysm or dissection. 2. No evidence of large or medium vessel vasculitis. Right Lower Extremity: Three-vessel runoff to the foot. Left Lower Extremity: Three-vessel runoff to the foot. NONVASCULAR: No acute abdominopelvic findings. Chronic findings as described above. Fleischner guidelines were followed. Electronically signed by: Leonidas Hayes DO 07/04/2024 06:51 PM [facility] Dictated By: Leonidas Hayes Signed By: <Electronically signed by Leonidas Hayes in OV> 07/04/24 1851 DD/ 1538 TD/TT: 07/01/24 1550 Helper Marble Finisher: [place] [address] CT Scan Report Signed Patient: Esther Saunders MR#: [id number] : 1960 Acct:[id number] Age/Sex: 64 / F ADM Date: 07/01/24 Loc: .CT Attending Dr: Thanh Parra MD Ordering Physician: Lorri Parra MD Date of Service: 07/01/24 Procedure(s): CT ang io abd aorta runoff Accession Number(s): [id number] cc: Lorri Parra MD ; Balaji Massey MD EXAMINATION: CT ANGIOGRAPHY ABDOMEN, PELVIS AND LOWER EXTREMITY RUNOFF WITH CONTRAST CLINICAL INFORMATION: I77.6 - Arteritis, unspecified COMPARISON: None TECHNIQUE: Initial noncontrast localizing shipping receiving clerk images were obtained. Timing boluses at the level of the celiac and popliteal arteries were calculated. Subsequently, arterial phase multidetector volumetric imaging was performe d through the abdomen, pelvis and bilateral lower extremities followin g the administration of 99 mL Omnipaque 350 intravenous contrast. No contrast reaction reported Sagittal and coronal reformatted images were obtained on the technologist workstation. After extensive post-processing on a dedicated 3-D workstation, 3-D reformatted images were uploaded to PACS and reviewed as well. This CT examination was performed using dose optimization techniques as appropriate, various ly including the following: *Automated exposure control *Adjustment of mA and/or kV according to patient size (this includes techniques or standardized protocols for targeted exams where dose is matched to indication/reason for exam; i.e. extremities or head) *Use of iterative reconstruction technique DLP: 486 mGy-cm FINDINGS: VASCULAR: Abdominal Aorta: Moderate mixed atherosclerotic disease. No dissection or aneurysmal dilation. Normal aortic taper. Mesenteric Arteries: The celiac axis, superior mesenteric artery and inferior mesenteric artery are patent. These are normal in caliber. Renal Artery: Single renal arteries bilaterally. Renal arteries are patent and without stenosis or other vascular anomaly. Right Lower Extremity: Right Common Iliac Artery: Patent. Mild calcified atherosclerotic disease resulting in no high grade stenosis. Right External Iliac Artery: Patent Right Internal Iliac Artery: Patent. Common Femoral Arter y: Patent Superficial Femoral Artery: Patent Profunda Femoris: Patent. Popliteal Artery: Patent Tibioperoneal Trunk: Patent. Anterior Tibial Artery: Patent. Peroneal Artery: Patent. Posterior Tibial Artery: Patent. Dorsalis Pedis: Patent. Plantar Arch: Patent. Left lower extremity: Left Common Iliac Artery: Patent. Mild calcified atherosclerotic disease resulting in no high grade stenosis. Left External Iliac Artery: Patent Left Internal Iliac Artery: Patent. Common Femoral Arter y: Patent Superficial Femoral Artery: Patent Profunda Femoris: Patent. Popliteal Artery: Patent Tibioperoneal Trunk: Patent. Anterior Tibial Artery: Patent. Peroneal Artery: Patent. Posterior Tibial Artery: Patent. Dorsalis Pedis: Patent. Plantar Arch: Patent. NONVASCULAR FINDINGS: ABDOMEN/PELVIS: Lung Bases: The visualized lung bases are clear. Liver: Visualized liver is homogeneous in attenuation. Normal in size. Gallbladder: Cholelithiasis. Noninflamed. Biliary System: No intrahepatic or extrahepatic biliary dilation. Pancreas: Homogeneou s in attenuation. Spleen: Normal in size. Genitourinary: Bilateral kidneys demonstrate symmetric enhancement. Exophytic left simpl e renal cyst measuring 3.7 cm. No perinephric fluid collection. No renal calculi. No hydroureteronephrosis. Adrenal Glands: Unremarkable. Reproductive: Uterus and and bilateral adnexa are unremarkable. Gastrointestinal: Th e visualized alimentary tract is normal in course. No evidence of obstruction. Appendix: Surgically absent. Peritoneum: No pneumoperitoneum. No intra-abdominal fluid collection. Lymph Nodes: No pathologically enlarged abdominal or pelvic lymph nodes. Soft Tissues/Musculoskeleta l: Multilevel degenerative changes of the lumbar spine, worst at L5-S1. CT/CT angio abd aorta runoff IMPRESSION: VASCULAR: Abdomen/Pelvis: 1. No abdominal aort ic aneurysm or dissection. 2. No evidence of large or medium vessel vasculitis. Right Lower Extremit y: Three-vessel runoff to the foot. Left Lower Extremity : Three-vessel runoff to the foot. NONVASCULAR: No acut e abdominopelvic findings. Chronic findings as described above. Fleischner guideline s were followed. Electronically clarisse d by: Leonidas Hayes DO 07/04/2024 06:51 PM EST RP Dictated By: Leonidas Hayes Signed By: <Electronically signed by Leonidas Hayes in OV> 07/04/24 1851 DD/ 1538 TD/TT: 07/01/24 1550 Helper Marble Finisher: Reason For Referral Reason 3rd toe each foot cy anotic eval and treatment ?PVD or Raynaud disease Diagnosis 1 PVD (peripheral vasc ular disease) (I73.9) Diagnosis 2 Raynaud's disease wi thout gangrene (I73.00) Diagnosis 3 Blue toes (R23.0) Referral Organization Balaji Massey III, MD Referring Provider First Name Balaji Referring Provider Last Name Bryson Referring Provider Speciality Internal M edicine Referred Organization [facility] nter Referred Provider Carlos Camejo Referred Address [address] [place] [id number], Referred Provider Specialty Vascular [place] General [...] Massey Referring Provider Speciality Internal edicine Referred Provider [facility] Referred Provider Specialty Rheumatology General Notes Nafisa Shepard 2023 10:55:24 AM EDT > Faxed referral, progress note and juanos.Drea Amber 09/26/2023 02:15:11 PM EDT > Doctor denied [...] Referring Provider Last Name Massey [facility] Referred Provider [facility] Referred Provider Specialty Rheumatology General Notes Nafisa Shepard 2023 01:32:11 PM EDT > Referral Faxed Referral Priority Routine Referral Appointment Date 02/21/2024 Reason Consult and Treat Questioning Raynaud's Disease Diagnosis 1 Raynaud's disease wi thout gangrene (I73.00) Referral Organization Balaji Massey III, MD Referring Provider First Name Balaji Referring Provider Last Name Massey [facility], Rheumatology Referred Provider Specialty Rheumatology General Notes Nafisa Shepard 2023 02:57:01 PM EDT > referral with daryl progress notes faxed to office. Referral Priority Routine [...] Problem Status W/U Status Risk Notes Problem 46438875 Idiopathic peripheral neuropathy (G60.9) Active confirmed She agreed to t he trial of gabapentin. She will await the final diagnosis from the neurologist. Problem 22481882 Tobacco dependence (F17.200) Active confirmed I strongly recommended smoking cessation. I offered to refer to this smoking cessation program at [facility] or the [facility]. She will consider this. I made her aware of the health consequences of continued smoking. Problem 583270350 Urinary incontinence (R32) Active confirmed There is been n o change in the pattern or urinary incontinence. Since her last visit.She is 5. She has been referred to a urologist for evaluation and treatment. Problem Cataract (796608532) Cataract (H26.9) Active confirmed Problem 67561134 PTSD (post-traumatic stress disorder) (F43.10) Active confirmed Emotionally she says she is stable at this time. She is conducting all of the activities of daily life normally. Problem Hyperlipidaemia (19006455) Hyperlipidemia, unspecified hyperlipidemia type (E78.5) Active confirmed Her previous total cholesterol levels were 258 and 209. Her current values 271. She is not sure if she was fasting. This will be repeated after a straight 12 hour fast and decisions made about the necessity of treatment in the near future. Problem 806631315 Colon cancer (C18.9) Active confirmed There was no si gn of recurrent disease or new primary on today's examination. Problem 145024349 Major depressive disorder (F32.9) Active confirmed Her depression is stable and mild to moderate. She is compliant with her therapy. 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 Problem 009175672 Scoliosis of lumbar spine (M41.9) Active confirmed She has occasional mild back pain but none today. No change in her regimen was needed. Problem 446404344560924 History of bulimia (Z86.59) Active confirmed She denies any recurrence of bulimia. She has lost 15 pounds, she says, through diet and exercise. Problem 863859410 Renal cysts, acquired, bilateral (N28.1) Active confirmed These appear to be simple renal cyst on the ultrasound and will be followed. Problem 516581321 Raynaud's disease without gangrene (I73.00) Active confirmed She is going to be assigned a new bender hand. She reports that her feet are no [...] Date Provider Diagnosis Balaji Massey III, MD [address] [place] [address] [address] [place], [place] [address] 08/21/2023 Balaji Massey Major depressive disorder F32.9 ; PVD (peripheral vascular disease) I73.9 ; Scoliosis of lumbar spine M41.9 ; Urinary incontinence R32 ; PTSD (post-traumatic stress disorder) F43.10 ; Colon cancer C18.9 ; Renal cysts, acquired, bilateral N28.1 ; Adnexal mass N94.9 ; Tobacco dependence F17.200 and Hyperlipidemia, unspecified hyperlipidemia type E78.5 Balaji Massey III, MD [address] [place] [address] [place] [address] 09/06/2023 Balaji Massey Major depressive disorder F32.9 ; Scoliosis of lumbar spine M41.9 ; Urinary incontinence R32 ; PTSD (post-traumatic stress disorder) F43.10 ; Tobacco dependence F17.200 ; Hyperlipidemia, unspecified hyperlipidemia type E78.5 ; Raynaud's disease without gangrene I73.00 and PVD (peripheral vascular disease) I73.9 Balaji Massey III, MD [address] [place] [address] [place] [address] 09/20/2023 Balaji Massey Major depressive disorder F32.9 ; History of smoking Z87.891 ; Scoliosis of lumbar spine M41.9 ; Urinary incontinence R32 ; PTSD (post-traumatic stress disorder) F43.10 ; Colon cancer C18.9 ; Hyperlipidemia, unspecified hyperlipidemia type E78.5 ; Tobacco dependence F17.200 ; Hypothyroidism, unspecified E03.9 and Raynaud's disease without gangrene I73.00 Balaji Massey III, MD [address] [place] [address] [place] [address] 09/22/2023 Balaji Massey Major depressive disorder F32.9 ; Hyperlipidemia, unspecified hyperlipidemia type E78.5 ; Iron deficiency E61.1 ; Raynaud's disease without gangrene I73.00 ; Scoliosis of lumbar spine M41.9 ; Colon cancer C18.9 ; Tobacco dependence F17.200 and Idiopathic peripheral neuropathy G60.9 Balaji Massey III, MD [address] [place] [address] [place] [address] 10/11/2023 Balaji Massey Major depressive disorder F32.9 ; Chest pain R07.9 ; Scoliosis of lumbar spine M41.9 ; Urinary incontinence R32 ; PTSD (post-traumatic stress disorder) F43.10 ; Tobacco dependence F17.200 ; Idiopathic peripheral neuropathy G60.9 and Raynaud's disease without gangrene I73.00 Balaji Massey III, MD [address] [place] [address] [place] [address] 12/18/2023 Balaji Massey Major depressive disorder F32.9 ; Scoliosis of lumbar spine M41.9 ; Urinary incontinence R32 ; Tobacco dependence F17.200 ; Idiopathic peripheral neuropathy G60.9 ; Raynaud's disease without gangrene I73.00 and Viral syndrome B34.9 Balaji Massey III, MD [address] [place] [address] [place] [address] 01/30/2024 Balaji Massey Hyperlipidemia, unspecified hyperlipidemia type E78.5 ; Major depressive disorder F32.9 ; Colon cancer C18.9 and Raynaud's disease without gangrene I73.00 Balaji Massey III, MD [address] [place] [address] [place] [address] 03/25/2024 Balaji Massey Hyperlipidemia, unspecified hyperlipidemia type E78.5 ; PTSD (post-traumatic stress disorder) F43.10 ; Colon cancer C18.9 ; Major depressive disorder F32.9 ; Scoliosis of lumbar spine M41.9 ; Urinary incontinence R32 ; Tobacco dependence F17.200 ; History of bulimia Z86.59 and Raynaud's disease without gangrene I73.00 Balaji Massey III, MD [address] [place] [address] [place] [address] 09/18/2023 Balaji Massey III, MD [address] [place] [address] [place] [address] 09/25/2023 Balaji Massey III, MD [address] [place] [address] [place] [address] 09/25/2023 Balaji Massey III, MD [address] [place] [address] [place] [address] 09/26/2023 Balaji Massey III, MD [address] [place] [address] [place] [address] 12/19/2023 Balaji Massey III, MD [address] [place] [address] [place] [address] 03/27/2024 Balaji Massey Assessments Encounter Date Diagnosis [...] work. She has been referred to a bender hand for possible treatment. I have ordered a [...] refer to this smoking cessation program at [facility] or the [facility]. She will consider this. I made her aware of the health consequences of continued smoking. 01/30/2024 Raynaud's disease without gangrene (ICD-10 - I73.00) She is going to be assigned a new bender hand. She reports that her feet are no [...] refer to this smoking cessation program at [facility] or the [facility]. She will consider this. I made [...] refer to this smoking cessation program at [facility] or the [facility]. She will consider this. I made [...] refer to this smoking cessation program at [facility] or the [facility]. She will consider this. I made [...] refer to this smoking cessation program at [facility] or the [facility]. She will consider this. I made her aware of the health consequences of continued smoking. 08/21/2023 Adnexal mass (ICD-10 - N94.9) She remains under the care of HOSTEL MANAGER. 09/06/2023 PVD (peripheral vascular disease) (ICD-10 - I73.9) I have requested a vascular surgery consultation to help with treatment. 09/20/2023 Tobacco dependence (ICD-10 - F17.200) I strongly recommended smoking cessation. I offered to refer to this smoking cessation program at [facility] or the [facility]. She will consider this. I made [...] refer to this smoking cessation program at [facility] or the [facility]. She will consider this. I made her aware of the health consequences of continued smoking. 09/20/2023 Hypothyroidism, unspecified (ICD-10 - E03.9) No change in her medication was needed today. 03/25/2024 Raynaud's disease without gangrene (ICD-10 - I73.00) She is going to be assigned a new bender hand. She reports that her feet are no [...] Details Provider Name:Balaji Massey, 08/26/2024 04:00:00 PM, [address] [place] [address] [address], [place], [id number], Insurance Providers Payer Name Payer Address Payer Phone Subscriber Number Group Number Insured Name Patient Relationship to Insured Coverage Start Date Coverage End Date MEDICARE NGS [address] [place] [address] [id number] SIDRA SAUNDERS Self - patient is the insured MEDICAID [address] [place] [id number] [phone] [id number] CHIP SIDRA Self - patient is the insured Medical [...]
--- OUTSIDE RECORDS SUMMARY | 2024-07-16 13:27 | XMS_ITS ---
Author Organization Balaji Massey III, MD Address [address] [place] [address] [place] [address] Care Team Providers Care Cable Rigger Name Role Phone Balaji Massey Primary Care Provider LEANN NATION Unavailable [phone] REASON FOR VISIT Follow Up Social History Sex Assigned At : Social History Observation Description Sex Assigned At Female Encounters Encounter Location Date Provider Diagnosis Balaji Massey III, MD [address] [place] [address] [place] [address] 05/06/2024 Balaji Massey Plan Of Treatment Next Appt Details Provider Name:Balaji Massey, 08/26/2024 04:00:00 PM, [address] [place] [address] [place], [address], Progress Notes * MOIZ SAUNDERS MDOB: 0 (64 yo F)Acc No.[id number]:05/06/2024 Progress Notes Patient:?MOIZ SAUNDERS Provider:?Balaji Massey MD :1960???Age:63 Y???Sex:Female D ate:05/06/2024 Address: [address], [id number] Subjective: * Chief Complaints: * ???1. Follow Up. * Medical History:? Objective: * Vitals:? Assessment: Plan: * Treatment: * Images: * The named appointment provid er may or may not be the originator of this progress note, and it is not deemed complete until electronically signed by the appointment provider. Sign off status: Pending * Provider:?Balaji Massey MD Date:?04/17 Generated for Abbe felder/Shena/Lucie on:?07/16/2024 01:26 PM EST
--- OUTSIDE RECORDS SUMMARY | 2024-07-16 13:27 | XMS_ITS ---
Author Organization Balaji Massey III, MD Address [address] [place] [address] [place] [address] Care Team Providers Care Battery Installer Name Role Phone Balaji Massey Primary Care Provider LEANN NATION Unavailable [phone] REASON FOR VISIT PA for Nifedipine needed Social History Sex Assigned At : Social History Observation Description Sex Assigned At Female Encounters Encounter Location Date Provider Diagnosis Balaji Massey III, MD [address] [place] [address] [place] [address] 03/27/2024 Balaji Massey Plan Of Treatment Next Appt Details Provider Name:Balaji Massey, 08/26/2024 04:00:00 PM, [address] [place] [address] [place], [place], [phone], Progress Notes * MOIZ SAUNDERS MDOB: 0 (63 yo F)Acc No.[id number]:03/27/2024 Patient:?MOIZ SAUNDERS :1960???Age:63 Y???Sex:Female Address: [address], [place], [address] * true * Date:? Generated for Printi ng/Famadaig/eTransmitting on:?07/16/2024 01:26 PM EST
[2024-07-16 13:28] VITALS: BP 102/62; PULSE 89; BMI 24.4
== END 2024-07-16 13:58 | disposition home or self-care (01) ==
PROVIDERS: PCP Internal Medicine Medical Oncology; Visit Provider Student in an Organized Health Care Education/Training Program
DX: D68.61 Antiphospholipid syndrome (principal); I73.00 Raynaud's syndrome without gangrene
CPT/HCPCS: 99213; G2211

== ENCOUNTER → 2024-07-16 13:25 | Outpatient (BNVA) | payer MEDICARE, MEDICAID, SELFPAY | PROVIDERS: PCP Internal Medicine Medical Oncology; Visit Provider Student in an Organized Health Care Education/Training Program | DX: I73.00 Raynaud's syndrome without gangrene (principal); D68.61 Antiphospholipid syndrome | CPT/HCPCS: 99212 ==

== ENCOUNTER 2024-08-23 12:14 | Outpatient (REF) | payer MEDICARE, MEDICAID, SELFPAY ==
[2024-08-23 12:40] LABS: MANUAL DIFF FLAG NO
[2024-08-23 12:52] LABS: Basophils Percent Auto 0.4 % (0-2); Eosinophils Absolute Auto 0.1 X10*3/uL (0.0-0.4); Eosinophils Percent Auto 1.9 % (0-4); Hematocrit 37.5 % (37.0-47.0); Hemoglobin 12.9 g/dl (12.0-16.0); Imm Gran Abs Auto 0.03 X10*3/uL (0.00-0.03); Imm Gran Pct Auto 0.4 % (0.0-0.4); Lymphocytes Percent Auto 26.9 % (20-40); Mean Corpuscular HGB Conc 34.4 g/dl (31.0-35.0); Mean Corpuscular Hemoglobin 32.7 pg (27.0-33.0); Mean Corpuscular Volume 95.2 fL (80.0-98.0); Mean Platelet Volume 10.4 fL (9.4-12.3); Monocytes Absolute Auto 0.5 X10*3/uL (0.1-1.2); Monocytes Percent Auto 6.4 % (2-11); Neutrophils Absolute Auto 4.7 x10*3/uL (2.0-8.3); Platelet Count 199 X10*3/uL (160-400); Red Blood Count 3.94 X10*6/uL (4.20-5.50); Red Cell Distribution Width 12.5 % (11.0-16.0); White Blood Count 7.3 X10*3/uL (4.8-10.8)
--- OUTSIDE RECORDS SUMMARY | 2024-08-23 13:14 | XMS_ITS | Clinical Summary ---
Author Organization [facility] it[facility] Address [address] [place] [address] Care Team Providers Care Energy Auditor Name Role Phone Unavailable Primary Care Provider Unavailabl e Social History Tobacco Use Types Packs/Day Years Used Date Smoking Tobacco: Never Assessed Sex and Gender Information Value Date Recorded Sex Assigned at Not on file Gender Identity Not on file Sexual Orientation Not on file Plan of Treatment Health Maintenance Due Date Last Done Comments Breast Cancer Screening 1960 DTaP,Tdap,and Td Vaccines (1 - Tdap) 1979 Cervical Cancer Screening: P ap Smear 1981 Zoster Vaccines (1 of 2) 2010 COVID-19 Vaccine (2023-2 5 season) 2024 Influenza Vaccine (#1) 2024 RSV Immunization Patients 60 + Years Old (1 - 1-dose 75+ series) 2035 HIB Vaccines Aged Out No longer eligi ble based on patient's age to complete this topic HPV Vaccines Aged Out No longer eligi ble based on patient's age to complete this topic Hepatitis A Vaccines Aged Out No long er eligible based on patient's age to complete this topic Hepatitis B Vaccines Aged Out No long er eligible based on patient's age to complete this topic IPV Vaccines Aged Out No longer eligi ble based on patient's age to complete this topic MMR Vaccines Aged Out No longer eligi ble based on patient's age to complete this topic Meningococcal ACWY Vaccine Aged Out N o longer eligible based on patient's age to complete this topic Pneumococcal Vaccine: Pediat rics (0 to 5 Years) and At-Risk Patients (6 to 64 Years) Aged Out No longer eligible b ased on patient's age to complete this topic RSV Immunization Patients Un lion 20 months Aged Out No longer eligible b ased on patient's age to complete this topic Varicella Vaccines Aged Out No longer eligible based on patient's age to complete this topic
--- OUTSIDE RECORDS SUMMARY | 2024-08-23 13:14 | XMS_ITS ---
Author Organization Balaji Massey III, MD Address [address] [place] [address] [place] [address] Care Team Providers Care Cryptologic Technician Technical Name Role Phone Balaji Massey Primary Care Provider [phone] LEANN NATION Unavailable [phone] REASON FOR VISIT PA for Nifedipine needed Social History Sex Assigned At : Social History Observation Description Sex Assigned At Female Encounters Encounter Location Date Provider Diagnosis Balaji Massey III, MD [address] [place] [address] [place] [address] 03/27/2024 Balaji Massey Plan Of Treatment Next Appt Details Provider Name:Balaji Massey, 08/26/2024 04:00:00 PM, [address] [place] [address] [address], [place], [address], Progress Notes * MOIZ SAUNDERS MDOB: 0 (63 yo F)Acc No.[id number]:03/27/2024 Patient:?MOIZ SAUNDERS :1960???Age:63 Y???Sex:Female Address: [address], [place], [address] * true * Date:? Generated for Printi ng/Famadaig/eTransmitting on:?08/23/2024 01:14 PM EST
--- OUTSIDE RECORDS SUMMARY | 2024-08-23 13:14 | XMS_ITS | Encounter Summary ---
Author Organization [employer] Address [address] [place] [address] Care Team Providers Care Swine Genetics Researcher Name Role Phone Unavailable Primary Care Provider Unavailabl e Encounter Details Date Type Department Care Team (Latest Contact Info) Description 07/27/2018 Abstract [facility]VERSION[facility] Dental, Provider, DDS Social History Tobacco Use Types Packs/Day Years Used Date Smoking Tobacco: Never Assessed Comments Unknown Sex and Gender Information Value Date Recorded Sex Assigned at Female 05/16/2022 10:19 AM EDT Legal Sex Female 10:19 AM EDT Gender Identity Choose not to disclose 2 10:19 AM EDT Sexual Orientation Choose not to disclose 2021 10:19 AM EDT documented as of this encounter Plan of Treatment Not on file documented as of this encounter Visit Diagnoses Not on filedocumented in this encounter
--- OUTSIDE RECORDS SUMMARY | 2024-08-23 13:14 | XMS_ITS | Clinical Summary ---
Author Organization [employer] Address [address] [place] [address] [address] [place] [address] Care Team Providers Care Telecasting Engineer Name Role Phone Unavailable Primary Care Provider Unavailabl e Allergies Active Allergy Reactions Criticality Noted Date Comments Nabumetone 12/07/2012 Other reaction(s): GI upset Red Dye #40 (Allura Red) 11/05/2018 Sulfa Antibiotics 10/12/2016 Medications verapamil SR (Calan SR) 240 MG ER tablet Take 240 mg by mouth in the morning. 3 Active FeroSul 325 (65 Fe) MG tablet Take 1 tablet by mouth in the morning. 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 2024 Anisometropia 2024 Combined forms of age-related cataract of both e yes 2024 Encounters Date Type Department Care Team Description 06/06/2024 9:30 AM EST Office Visit [facility] [address] [place] [address] Noel, Mavis, OD Myopia of both eyes (Primary Dx) from Last 3 Months Social History Tobacco Use Types Packs/Day Years Used Date Smoking Tobacco: Every Day Cigarettes Passive Smoke Exposure: Never Tobacco Cessation:Ready to Q uit: Not Asked; Counseling Given: Not Answered Comments Unknown Sex and Gender Information Value Date Recorded Sex Assigned at Female 05/16/2022 10:19 AM EDT Legal Sex Female 10:19 AM EDT Gender Identity Choose not to disclose 10:19 AM EDT Sexual Orientation Choose not to disclose 2021 10:19 AM EDT Last Filed Vital Signs Vital Sign Reading Time Taken Comments Blood Pressure 112/74 09/19/2023 2:55 PM EST Pulse - - Temperature - - Respiratory Rate - - Oxygen Saturation - - Inhaled Oxygen Concentration - - Weight - - Height - - Body Mass Index - - Plan of Treatment Health Maintenance Due Date Last Done Comments Depression Screening 1960 HIV Screening 1960 Lipid Panel 1960 SDOH Screening 1960 Alcohol/Substance Use Screening 1972 Hepatitis C Screening 1978 Pap Smear 1981 Cervical Cancer Screening 1990 HPV/Cotest 1990 Mammogram 2000 Hepatitis B Vaccines (3 of 3 - 19+ 3-dose series) 10/29/2008 09/03/2008, 03/05/2008, 02/11/2008 Zoster Vaccines (1 of 2) 2010 Pneumococcal Vaccine: 50+ Years (2 of 2 - PCV) 02/21/2013 02/22/2012 Pneumococcal Vaccine: Pediatrics (0 to 5 Years) and At-Risk Patients (6 to 49) Years) (2 of 2 - PCV) 02/21/2013 02/22/2012 Dental Oral Exam 12/28/2023 06/27/2023, 05/2019, 05/05/2016, Additional history exists Dental Prophylaxis 12/28/2023 06/27/2023, 0 08/14/2014, 10/05/2010, Additional history exists COVID-19 Vaccine ( - season) 2024 04/01/2021, 03/11/2021 Influenza Vaccine (#1) 2024 Dental X-Ray: Bitewings 06/28/2024 06/27/20, 07/27/2018, 05/05/2016, Additional history exists Tobacco Screening 05/06/2025 05/06/2024 DTaP/Tdap/Td Vaccines (3 - Td or Tdap) 02/21/2026 02/22/2016, 02/22/2012 Dental X-Ray: Full Mouth 06/28/2026 023, 03/02/2021, 07/27/2018 RSV Patients and Patients Aged 60 years or older (1 - 1-dose 75+ series) 2035 HIB [...] patient's age to complete this topic Meningococcal Vaccine Aged Out No jorge rachelle eligible based on patient's age to complete this topic RSV under 20 months Aged Out No longe r eligible based on patient's age to complete this topic Rotavirus Vaccines Aged Out No longer eligible based on patient's age to complete this topic Procedures Procedure Name Priority Date/Time Associated Diagnosis Comments PROPHYLAXIS - ADULT Routine 06/27/2023 3 :00 PM EST DIAGNOSTIC - DIAGNOSTIC IMAGING - INTRAORAL - COMPREHENSIVE SERIES OF RADIOGRAPHIC IMAGES Routine 06/27/2023 3:00 PM EST PERIODIC ORAL EVALUATION - ESTABLISHED PATIENT Routine 06/27/2023 3:00 PM EST from Last 3 Months or Most Recently Relevant to Health Maintenance Insurance * Guarantor: Sidra Quintanilla Account Type Relation to Patient Date of Phone Billing Address Personal/Family Self 1960 [address] [place] [address] [place] [address] [place] [address] [facility] [address] [place] [facility] MEDICAID STAND ADULT * Guarantor: Sidra Quintanilla Account Type Relation to Patient Date of Phone Billing Address Personal/Family Self [address] [place] [address] * Guarantor: Sidra Quintanilla Account Type Relation to Patient Date of Phone Billing Address Personal/Family Self [address] [place] [id number] * Guarantor: Sidra Quintanilla Account Type Relation to Patient Date of Phone Billing Address Personal/Family Self [address] [place] [address]
--- OUTSIDE RECORDS SUMMARY | 2024-08-23 13:14 | XMS_ITS ---
Author Organization Balaji Massey III, MD Address [address] [place] [address] [place] [address] Care Team Providers Care State Appellate Clerk Name Role Phone Balaji Massey Primary Care Provider LEANN NATION Unavailable [phone] REASON FOR VISIT Follow Up Social History Sex Assigned At : Social History Observation Description Sex Assigned At Female Encounters Encounter Location Date Provider Diagnosis Balaji Massey III, MD [address] [place] [address] [place] [address] 05/06/2024 Balaji Massey Plan Of Treatment Next Appt Details Provider Name:Balaji Massey, 08/26/2024 04:00:00 PM, [address] [place] [address] [place], [address], Progress Notes * MOIZ SAUNDERS MDOB: 0 (64 yo F)Acc No.[id number]:05/06/2024 Progress Notes Patient:?MOIZ SAUNDERS Provider:?Balaji Massey MD :1960???Age:63 Y???Sex:Female D ate:05/06/2024 Address: [address], [id number] Subjective: * Chief Complaints: * ???1. Follow Up. * Medical History:? Objective: * Vitals:? Assessment: Plan: * Treatment: * Images: * The named appointment provid er may or may not be the originator of this progress note, and it is not deemed complete until electronically signed by the appointment provider. Sign off status: Pending * Provider:?Balaji Massey MD Date:?04/17 Generated for Abbe felder/Shena/Lucie on:?08/23/2024 01:14 PM EST
--- OUTSIDE RECORDS SUMMARY | 2024-08-23 13:14 | XMS_ITS ---
Author Organization Balaji Massey III, MD Address [address] [place] [address] Care Team Providers Care Cupola Patcher Helper Name Role Phone Balaji Massey Primary Care Provider [phone] LEANN NATION Unavailable [phone] Allergies Allergen (clinical drug ingredient) Drug/Non Drug [...] Date Provider Diagnosis Balaji Massey III, MD [address] [place] [address] [address] [place] [address] 05/15/2024 Balaji Massey Hyperlipidemia, unspecified hyperlipidemia type [...] Details Provider Name:Balaji Massey, 08/26/2024 04:00:00 PM, [address] [place] [address] [address], [place], [address], Progress Notes * SIDRA QUINTANILLA MDOB: 0 (64 yo F)Acc No.[id number]:05/15/2024 Progress Notes Patient:?CHIPSIDRA Provider:?Balaji Massey MD :1960???Age:64 Y???Sex:Female D ate:05/15/2024 Address:[address], [place], [id number] Subjective: * Chief Complaints: * ???1. Follow [...] smoker (10-19 cigs/day) ???She was born in [place], [place]. She has 2 siblings. SHe has a son who lives in [facility], workks at [employer]. She was in 1992 and is unemployed. [...] Massey MD Date:?04/18 Generated for Abbe felder/Shena/eTransmitting on:?08/23/2024 01:14 PM EST History and Physical Notes * [...]
[2024-08-23 13:29] LABS: Appearance Urine Clear; Color Urine Yellow; Glucose Urine UA Negative (Negative); Leukocyte Esterase Urine Negative (Negative); Nitrite Urine Negative (Negative); Urine Blood Negative (Negative); Urine Ketones Negative (Negative); Urine Protein Negative (Neg-Trace)
[2024-08-23 13:35] LABS: Bacteria Urine None Seen (None Seen); Hyaline Casts Urine 0-2 /LPF (0-2); RBC Urine 0-2 /HPF (0-2); Squamous Epithelial Cell Urine 0-2 /HPF (0-2); WBC Urine 0-5 /HPF (0-5)
[2024-08-23 13:35] LABS: Alanine Aminotransferase 16 U/L (0-31); Albumin Level 4.1 g/dL (3.5-5.0); Alkaline Phosphatase 74 U/L (39-117); Anion Gap 14 (12-20); Aspartate Amino Transferase 22 U/L (5-31); Bilirubin Total 0.5 mg/dL (0.0-1.0); Blood Urea Nitrogen 11 mg/dL (9-16); Calcium 9.6 mg/dL (8.4-10.2); Carbon Dioxide 24 mmol/L (22-29); Chloride 107 mmol/L (96-108); Cholesterol 238 mg/dL (<200); Estimated Glomerular Filt Rate > 60; Glucose Fasting 91 mg/dL (60-99); HDL Cholesterol 36 mg/dL (>40); LDL Cholesterol Calculated 172 mg/dL (<100); Potassium 4.4 mmol/L (3.3-5.1); Sodium 141 mmol/L (135-145); Total Protein 7.5 g/dL (6.5-8.0); Triglycerides 153 mg/dL (<150)
[2024-08-26 15:49] LABS: Cardiolipin IgG Ab 5.8 GPL-U/mL; Cardiolipin IgM Ab >112.0 MPL-U/mL
[2024-08-28 08:48] LABS: Myeloperoxidase Antibody <1.0 AI; Proteinase 3 PR3 Antibodies <1.0 AI
[2024-08-28 23:52] LABS: Beta-2 Glycoprotein IgA <2.0 U/mL (<20.0); Beta-2 Glycoprotein IgG 9.3 U/mL (<20.0); Beta-2 Glycoprotein IgM >112.0 U/mL (<20.0)
[2024-08-29 13:39] LABS: Hexagonal Phase Neutralization Negative (Negative); PTT (LAC) Screen 42 sec (<=40)
== END 2024-08-23 12:15 | disposition home or self-care (01) ==
LOC: HO.LAB 12:14
PROVIDERS: Student in an Organized Health Care Education/Training Program; PCP Internal Medicine Medical Oncology; Visit Provider Internal Medicine Medical Oncology
DX: I77.6 Arteritis, unspecified (principal); I73.00 Raynaud's syndrome without gangrene; R76.0 Raised antibody titer; R31.9 Hematuria, unspecified; E78.5 Hyperlipidemia, unspecified; F43.10 Post-traumatic stress disorder, unspecified; C18.9 Malignant neoplasm of colon, unspecified
CPT/HCPCS: 36415; 80053; 80061; 81001; 85025; 85597; 85598; 85613; 85730; 86021; 86146; 86147

== ENCOUNTER 2025-01-09 14:58 | Outpatient (AMB) | payer MEDICARE, MEDICAID, SELFPAY ==
--- NOTE | 2025-01-09 15:00 | A.OFFVIS_ITS ---
Vital Signs 01/09/25 15:06 Height 5 ft 6 in Weight 134 lb 7.712 oz BMI 21.7 BP 118/70 Blood Pressure Location Lt brachial Position Sitting Pulse 75 Pulse Source Pulse Oximeter Pulse Oximetry (%) 98 Oxygen Delivery Method Room Air Intake Visit Reasons: Raynauds Intake Note: Patient presents for Raynaud's follow up. Allergies magnesium sulfate (From SUPREP) Allergy (Intermediate, Verified 01/09/25 15:05) RASH potassium (From SUPREP) Allergy (Intermediate, Verified 01/09/25 15:05) RASH sodium sulfate (From SUPREP) Allergy (Intermediate, Verified 01/09/25 15:05) RASH nabumetone (NABUMETONE) Allergy (Unknown, Verified 01/09/25 15:05) STOMACH UPSET sumatriptan (From IMITREX) Allergy (Unknown, Verified 01/09/25 15:05) NAUSEA & VOMITING, nausea,vomiting SuPrep Bowel Prep Kit (Na Sulf Allergy (Unknown, Uncoded 07/16/24 13:31) --Sulfa Medication List - Last Reconciled 01/09/25 by Lorri Parra MD amlodipine 10 mg PO DAILY aspirin 81 mg PO DAILY escitalopram oxalate 20 mg PO DAILY ferrous sulfate (FeroSul) 325 mg PO DAILY HPI Comments Details: Patient is a 64-year-old current everyday smoker (50 pack years) with major depressive disorder and a history of suicidal attempt who presents for follow up of Raynaud's Disease Interval History: Patient last seen 07/16/24 with me. That time she was doing well tolerating amlodipine without any new complaints Today, still doing well on the amlodipine Complaining of pain to her toes with color change Rheumatologic History: Establish care 04/23/2024 for the evaluation of color changes to toes. Given her significant smoking history the concern was for Buerger's disease/Raynaud's disease. Blood work and imaging was sent. We will she need not show any significant evidence of medium or large vessel vasculitis however blood work was positive for beta 2 and anticardiolipin antibodies consistent with antiphospho lipid syndrome. Current working diagnosis is antiphospholipid syndrome. Current Rheumatology Medication(s): Amlodipine 10mg ASA 81 mg daily [facility] Medical History (Updated 07/16/24 @ 14:06 by Lorri Parra MD) Antiphospholipid antibody syndrome Antiphospholipid antibody positive Raynauds disease History of anemia Tobacco dependence Hx of major depression Hx of colon cancer, stage I Chronic idiopathic constipation Surgical History History of esophagogastroduodenoscopy (EGD) H/O right hemicolectomy H/O colonoscopy Family History Maternal Aunt Colon cancer Father FH: colon polyps Social History Household Members: Significant Other Alcohol intake: current Alcohol intake frequency: does not drink Patient Tobacco Use Status: Current everyday Tobacco user Tobacco use type: Cigarette Cigarettes Per Day: 10 Current occupational status: unemployed Review of Systems Const Details: Review of Systems Constitutional: Denies fever, chills, weight loss ENT: Denies vision changes, eye pain or eye redness, dental caries, dry mouth GI: Denies nausea, vomiting, diarrhea, abdominal pain, change in BM Pulm: Denies SOB, GALINDO, hemoptysis, wheezing Cards: Denies chest pain, palpitations Skin: Denies rash, nail changes, photosensitivity, DIVE SUPERVISOR: Denies headaches, weakness, paresthesias, recurrent falls MSK: Complains joint stiffness. Denies joint swelling, muscle weakness, bone pain All other systems reviewed and are unremarkable except noted above Physical Exam Vital Signs: Last Vital Signs Pulse 75 01/09/25 15:06 BP 118/70 01/09/25 15:06 Pulse Ox 98 01/09/25 15:06 Oxygen Delivery Method Room Air 01/09/25 15:06 BMI result Body Mass Index 21.7 Vital signs reviewed Physical Examination CONSTITUITIONAL Patient alert and cooperative. Well appearing and in no apparent painful distress HEENT Conjunctiva and sclera clear. ?Pupils equal round and reactive to light. ?No lymphadenopathy. ? CHEST/RESPIRATORY SYSTEM Normal respiratory effort and able to speak in complete sentences. ?Clear to auscultation bilaterally. ?No crackles, rales, rhonchi, wheezes heard. CARDIAC SYSTEM Regular rate and rhythm. ?S1 and S2 heard no murmurs. ?Radial pulses intact bilaterally MSK Hands: ?Good medical nurse strength bilaterally. No deformities noted. ?No synovitis noted to the MCPs, PIPs or DIPs. ?No tenderness to palpation of these joints. Wrists: ?Full range of motion at the wrists without pain. ?No tenderness to palpation or synovitis noted to the wrists. Elbows: Full range of motion without pain. No tenderness, weakness, swelling, increased warmth or erythema. Shoulders: Full range of motion without pain. No tenderness, weakness, swelling, increased warmth or erythema. Knees: ?Full range of motion. ?No tenderness, swelling, increased warmth or erythema.?No effusion or crepitations Ankles: Full range of motion. ?No tenderness, swelling, increased warmth or erythema.? Feet: ?Negative squeeze test. ?No tenderness to palpation or swelling of the MTPs. Left 3rd toe cyanotic and tender to palpation Tender points:?No tenderness to palpation of the bilateral trapezius, supraspinatus, greater trochanters, anterior costochondral junctions, bilateral gluteal areas, bilateral suboccipital muscle insertions SKIN Skin intact without rashes. Results Reviewed Results Reviewed: Laboratory Tests 04/23/24 08/23/24 08:55 12:38 WBC 7.3 RBC 3.94 L Hgb 12.9 Hct 37.5 Plt Count 199 ESR 30 H Sodium 141 Potassium 4.4 Chloride 107 Carbon Dioxide 24 BUN 11 Creatinine 0.84 AST 22 ALT 16 Alkaline Phosphatase 74 Rheumatology Labs 09/22/23 03/19/24 04/23/24 08/23/24 17:13 12:25 08:55 12:38 Cryoglobulin POSITIVE Negative Rheumatoid Factor < 13.0 < 13.0 VALENTINE Screen POSITIVE A NEGATIVE VALENTINE Titer 1:40 H Beta-2-GPI IgM Ab >112.0 H >112.0 H Anti-Cardiolipin IgM Ab >112.0 H >112.0 H Laboratory Tests 04/23/24 08:55 Proteinase 3 (PR3) Ab <1.0 Myeloperoxidase Ab <1.0 Beta-2-GPI IgG Ab 5.3 Beta-2-GPI IgA Ab <2.0 Anti-Cardiolipin IgG Ab 5.6 Aorta w Runoff 07/01/24 FINDINGS: VASCULAR: Abdominal Aorta: Moderate mixed atherosclerotic disease. No dissection or aneurysmal dilation. Normal aortic taper. Mesenteric Arteries: The celiac axis, superior mesenteric artery and inferior mesenteric artery are patent. These are normal in caliber. Renal Artery: Single renal arteries bilaterally. Renal arteries are patent and without stenosis or other vascular anomaly. Right Lower Extremity: Right Common Iliac Artery: Patent. Mild calcified atherosclerotic disease resulting in no high grade stenosis. Right External Iliac Artery: Patent Right Internal Iliac Artery: Patent. Common Femoral Artery: Patent Superficial Femoral Artery: Patent Profunda Femoris: Patent. Popliteal Artery: Patent Tibioperoneal Trunk: Patent. Anterior Tibial Artery: Patent. Peroneal Artery: Patent. Posterior Tibial Artery: Patent. Dorsalis Pedis: Patent. Plantar Arch: Patent. Left lower extremity: Left Common Iliac Artery: Patent. Mild calcified atherosclerotic disease resulting in no high grade stenosis. Left External Iliac Artery: Patent Left Internal Iliac Artery: Patent. Common Femoral Artery: Patent Superficial Femoral Artery: Patent Profunda Femoris: Patent. Popliteal Artery: Patent Tibioperoneal Trunk: Patent. Anterior Tibial Artery: Patent. Peroneal Artery: Patent. Posterior Tibial Artery: Patent. Dorsalis Pedis: Patent. Plantar Arch: Patent. NONVASCULAR FINDINGS: ABDOMEN/PELVIS: Lung Bases: The visualized lung bases are clear. Liver: Visualized liver is homogeneous in attenuation. Normal in size. Gallbladder: Cholelithiasis. Noninflamed. Biliary System: No intrahepatic or extrahepatic biliary dilation. Pancreas: Homogeneous in attenuation. Spleen: Normal in size. Genitourinary: Bilateral kidneys demonstrate symmetric enhancement. Exophytic left simple renal cyst measuring 3.7 cm. No perinephric fluid collection. No renal calculi. No hydroureteronephrosis. Adrenal Glands: Unremarkable. Reproductive: Uterus and and bilateral adnexa are unremarkable. Gastrointestinal: The visualized alimentary tract is normal in course. No evidence of obstruction. Appendix: Surgically absent. Peritoneum: No pneumoperitoneum. No intra-abdominal fluid collection. Lymph Nodes: No pathologically enlarged abdominal or pelvic lymph nodes. Soft Tissues/Musculoskeletal: Multilevel degenerative changes of the lumbar spine, worst at L5-S1. IMPRESSION: VASCULAR: Abdomen/Pelvis: 1. No abdominal aortic aneurysm or dissection. 2. No evidence of large or medium vessel vasculitis. Right Lower Extremity: Three-vessel runoff to the foot. Left Lower Extremity: Three-vessel runoff to the foot. NONVASCULAR: No acute abdominopelvic findings. Chronic findings as described above. Assessment & Plan Assessment & Plan (1) Antiphospholipid antibody syndrome: Code(s): D68.61 - Antiphospholipid syndrome Category: Medical Plan: #Antiphospholipid Antibody Syndrome Patient is a 64 y.o. female with APS: high positive APS labs: IgM ACL and B2G x 2 12 weeks apart, RP. This is seen in patients with lupus and APS. Given her history, low suspicion that this is due to lupus given her lack of inflammatory joint pain, alopecia, oral ulcers, photosensitive rash or discoid type rash. She does not have any evidence or history of DVT or PE but given her high positive titres she is on ASA. Raynaud's can also be seen in patients with APS. Continues to have pain to her toes with cyanosis. Will try adding plaquenil. Plan - Continue ASA 81mg daily - Plaquenil 200mg bid - Stop escitalopram - Start duloxetine 30mg nightly x 2 weeks then 60mg nightly - RTC 6 months (2) Raynauds disease: Code(s): I73.00 - Raynaud's syndrome without gangrene Category: Medical Qualifiers: Raynaud?s-associated gangrene presence: without gangrene Qualified Code(s): I73.00 - Raynaud's syndrome without gangrene Plan: #Raynauds Syndrome Given the positive APS labs it is likely that her RP is secondary to APS (though her capillary nailfolds are normal) but will still need to show that the antibodies are persistent Continue amlodipine Conservative measures to keep core body warm Plan - Amlodipine 10mg daily - Keep core body warm (3) Encounter for monitoring of hydroxychloroquine therapy: Code(s): Z51.81 - Encounter for therapeutic drug level monitoring; Z79.899 - Other truck terminal manager (current) drug therapy Plan: #Long-term Use of Hydroxychloroquine Discussed with patient the risks and benefits of hydroxychloroquine in managing the rheumatic condition Benefits include: - Reduced pain, reduce mortality, maintenance of remission and reduction of flares Risks include: - GI upset, skin hyperpigmentation, retinal toxicity (especially after more than 5 years of use), myopathy Advised yearly ophthalmology visits Plan I spent 30 minutes reviewing the record and labs, seeing the patient, discussing the treatment plan and documenting in the medical record Medications: New hydroxychloroquine (Plaquenil) 200 mg PO BID 180 tabs 1RF 90 days D68.61 - Antiphospholipid syndrome duloxetine 60 mg (2 x 30 mg) PO DAILY 180 caps 1RF 90 days F32.A - Depression, unspecified Coding Level of Care Code Est Pt Level 4 (30592) Complex EM visit Add On G2211 Diagnoses Antiphospholipid antibody syndrome D68.61 Raynaud's disease without gangrene I73.00 Raynaud?s-associated gangrene presence: without gangrene Encounter for monitoring of hydroxychloroquine therapy Z51.81; Z79.899
[2025-01-09 15:06] VITALS: BP 118/70; PULSE 75; O2SAT 98; BMI 21.7
--- OUTSIDE RECORDS SUMMARY | 2025-01-09 18:11 | XMS_ITS | Clinical Summary ---
Author Organization [facility] Address [address] [place] [address] Care Team Providers Care Activity Therapist Name Role Phone Unavailable Primary Care Provider Unavailabl e Social History Tobacco Use Types Packs/Day Years Used Date Smoking Tobacco: Never Assessed Comments Unknown Sex and Gender Information Value Date Recorded Sex Assigned at Not on file Legal Sex Female 1:40 AM EST Gender Identity Not on file Sexual Orientation Not on file Plan of Treatment Health Maintenance Due Date Last Done Comments Breast Cancer Screening 1960 DTaP,Tdap,and Td Vaccines (1 - Tdap) 1979 Cervical Cancer Screening: P ap Smear 1981 Pneumococcal Vaccine: 50+ Ye ars (1 of 1 - PCV) 2010 Zoster Vaccines (1 of 2) 2010 COVID-19 Vaccine ( - 2023-2 5 season) 2024 Influenza Vaccine (Season Ended) 2025 RSV Immunization Adult Patie nts (1 - 1-dose 75+ series) 2035 HIB [...] patient's age to complete this topic Meningococcal B Vaccine Aged Out No l onger eligible based on patient's age to complete [...]
== END 2025-01-09 15:42 | disposition home or self-care (01) ==
LOC: HO.RHE 14:59
PROVIDERS: PCP Internal Medicine Medical Oncology; Visit Provider Student in an Organized Health Care Education/Training Program
DX: D68.61 Antiphospholipid syndrome (principal); I73.00 Raynaud's syndrome without gangrene; Z51.81 Encounter for therapeutic drug level monitoring; Z79.899 Other long term (current) drug therapy
CPT/HCPCS: 99214; G2211

== ENCOUNTER → 2025-01-09 14:58 | Outpatient (BNVA) | payer MEDICARE, SELFPAY | PROVIDERS: PCP Internal Medicine Medical Oncology; Visit Provider Student in an Organized Health Care Education/Training Program | DX: I73.00 Raynaud's syndrome without gangrene (principal); Z51.81 Encounter for therapeutic drug level monitoring; D68.61 Antiphospholipid syndrome; Z79.899 Other long term (current) drug therapy | CPT/HCPCS: 99212 ==